=== PATIENT | female | born 1965 | race Caucasian/White ===

== ENCOUNTER 2017-10-27 14:55 | Inpatient (IN) | payer BC ==
[~2017-10-27 14:55] MED LIST: ISOVUE-370 76%-LOCM 1 ML ONE
[2017-10-27] MEDS ORDERED: Morphine 4 MG/ML VIAL ONE ×2 (19:20→21:30)
[2017-10-27] MEDS ORDERED: Ondansetron HCl/PF 4 MG/2 ML Vial ONE (19:20)
[2017-10-27 19:45] LABS: #Basophils 0.1 thou/uL (0.0-0.2); #Eosinphils 0.2 thou/uL (0.0-0.7); #Lymphocytes 2.6 thou/uL (1.20-3.40); #Neutrophils 11.7 thou/uL (1.40-6.50); %Basophils 0.5 % (0.0-1.0); %Eosinophils 1.2 % (0.0-10.0); %Lymphocytes 16.7 % (21.0-51.0); %Monocytes 6.6 % (0.0-10.0); Mean Platelet Volume 9.9 fL (7.4-10.4); Red Blood Cell (RBC) Count 5.05 mill/uL (4.20-5.40); White Blood Cell (WBC) Count 15.6 thou/uL (4.8-10.8)
[2017-10-27 20:05] LABS: Lactic Acid - Sepsis 1.5 mmol/L (0.5-2.2)
[2017-10-27 20:10] LABS: ALT (SGPT) 12 U/L (8-55); AST (SGOT) 15 U/L (5-34); Alkaline Phosphatase 138 U/L (40-150); Anion Gap 16 mmol/L (10-20); BUN (Urea Nitrogen) 9 mg/dL (9.8-20.1); Bilirubin, Total 1.8 mg/dL (0.2-1.2); Calc. Creatinine Clearance 0 mL/min (70-130); Calcium 9.7 mg/dL (7.8-10.44); Carbon Dioxide 23 mmol/L (22-29); Chloride 94 mmol/L (98-107); Estimated GFR-MDRD 70; Globulin 3.6 g/dL (2.4-3.5); Protein, Total 7.1 g/dL (6.0-8.3)
[2017-10-27 20:46] LABS: Bilirubin Negative (Negative); Blood, Urine Small (Negative); Glucose, Urine (Dipstick) >=1000 mg/dL (Negative); Ketone, Urine 15 mg/dL (Negative); Nitrite Negative (Negative); Protein, Urine (Dipstick) Negative (Neg-Trace)
[2017-10-27 21:00] LABS: Bacteria/HPF None Seen HPF (None Seen); RBC/HPF 0-3 HPF (0-3); Squamous Epithelial 0-3 HPF (0-3); WBC/HPF 0-3 HPF (0-3)
[2017-10-27 21:01] LABS: Hyaline Casts/LPF NONE SEEN LPF (0-3 Hyaline)
[2017-10-27] MEDS ORDERED: Clindamycin/D5W 900 mg/50 ml Premix Bag ONE (21:21)
[2017-10-27] MEDS ORDERED: Ondansetron HCl/PF 4 MG/2 ML Vial IVP PRN (21:59)
[2017-10-27] MEDS ORDERED: Morphine 4 MG/ML VIAL SLOW IVP PRN (22:10)
[2017-10-27] MEDS ORDERED: Insulin Regular 300 UNITS/3 ML VIAL ONE (22:37)
--- NOTE | 2017-10-27 23:14 | CT ---
CT OF THE ABDOMEN AND PELVIS WITH IV CONTRAST 10/27/17 PROVIDED CLINICAL HISTORY: Labial abscess. FINDINGS: The visualized lung bases appear clear. The spleen is enlarged, measuring about 15 cm in craniocaudal dimension x about 15 cm in transverse d imension. The solid abdominal organs demonstrate an otherwise unremarkable CT appearance. There is no bowel dilatation, inflammatory fat stranding, free fluid or free air apparent. Atherosclerotic vascu lar calcifications are noted involving the abdominal aorta. The osseous structures demonstrate no con cerning osteoblastic or osteolytic lesions. There is reticulation of the subcutaneous adipose layer involving the inferior aspects of the patient 's pannus, extending inferiorly to involve the region of the left labia. There is no definite evidenc e for a rim enhancing fluid collection to suggest a drainable abscess. There is a somewhat focal area of increased density within the subcutaneous adipose layer of the left gluteal region just to the le ft of midline at the level of the ischia, which may reflect a sebaceous cyst. Prominent by number, l ikely reactive, lymph nodes are seen within the left inguinal region. IMPRESSION: 1. No evidence for an acute intra-abdominal abnormality. 2. Cellulitis involving the patient's pannus and left labial region, without CT evidence for francie inable abscess. POS: [facility]
[2017-10-28] MEDS ORDERED: Dextrose 50% Abboject 50 ML SYRINGE SLOW IVP PRN (00:40)
[2017-10-28] MEDS ORDERED: Dextrose 5% in Water 1,000 ML IV PRN (00:40)
[2017-10-28] MEDS ORDERED: Insulin Detemir 100 UNITS/ML 20 UNITS in Pre-Filled Syringe 1 EACH SC SCH (00:45)
[2017-10-28] MEDS ORDERED: Amlodipine 10 MG TAB PO SCH (00:45)
[2017-10-28] MEDS ORDERED: Potassium Chloride 20 MEQ TAB PO SCH (00:45)
[2017-10-28] MEDS ORDERED: Sodium Chloride 0.9% 10 ML ONE (01:45)
--- NOTE | 2017-10-28 01:52 | HP ---
DATE OF SERVICE: 10/27/2017 TIME OF SERVICE: About 9:00 p.m. CHIEF COMPLAINT: Boils. HISTORY OF PRESENT ILLNESS: This is a 52-year-old nulliparous female who presented to the emergency department for left labial "boils and swelling" as well as fever of 102. She reports that since , she has had a boil on her left labia that has since increased in size and has become severely painful. The labia has started to drain brown to dark fluid that she reports "smells really bad." She has had some nausea today, but no significant vomiting , no changes in bowel habits, no problems with urination, or other concerns. She tried to get in with her PCP, but was unable to, so she went to the urgent care who sent her to the emergency room here. She reports that she gets these boils on her bottom relatively often, so she did not think anything of it when it first started. She feels that the pain and size of the infection has increased rapidly over the last couple of days. REVIEW OF SYSTEMS: Negative for head, eyes, ears, nose, throat, cardiovascular , respiratory, GI, , neuro, psych, musculoskeletal, skin, or constitutional symptoms other than mentioned above. PAST MEDICAL HISTORY: 1. Hypertension. 2. Morbid obesity. 3. Hyperlipidemia. 4. Type 2 diabetes on insulin. 5. Depression PAST SURGICAL HISTORY: LEEP procedure. MEDICATIONS: Reviewed. ALLERGIES: 1. PENICILLIN. 2. BACTRIM. SOCIAL HISTORY: Positive for tobacco use of approximately 1 pack every 3 days. She denies any alcohol or drug abuse. She is not currently in a relationship. FAMILY HISTORY: Significant for breast cancer and uterine cancer in her mother as well as heart disease in her father. Multiple family members with diabetes. PHYSICAL EXAMINATION: VITAL SIGNS: Temperature 100.5, blood pressure 159/90, pulse 111, respiratory rate 18, and O2 saturation 97% on room air. GENERAL: Awake, alert, in no acute distress. CHEST: Nonlabored breathing. ABDOMEN: Morbidly obese, soft, nontender. PELVIC: Multiple furuncles on her left buttock with significant erythema, induration, and swelling of her left labia from her perineum up to her mons and including her entire mons. There is an area of spontaneous drainage in the anterior portion of her labia and draining copious amounts of dark brown purulent fluid. Pelvic exam, otherwise deferred due to patient's discomfort. IMAGING: CT scan was performed of the abdomen and pelvis revealing significant cellulitis of the left labia and mons pubis, but no drainable abscess and no gas noted. There were prominent lymph nodes in her left groin, but otherwise no abnormalities noted. LABORATORY DATA: WBC 15.6, hemoglobin 16.1, hematocrit 47.0, platelets 296,000 , neutrophils 75%, no bands. Chemistry: Sodium 129, glucose 535. Lactic acid 1.5. ASSESSMENT AND PLAN: A 52-year-old nulligravid female with, 1. Labial purulent cellulitis: On imaging, there is no drainable abscess noted ; however, there is spontaneous drainage from the left labia. She will be admitted for IV antibiotics including vancomycin 15 mg/kg q.8 hours, Levaquin 750 mg IV daily, and Flagyl 500 mg IV q.8 hours. We will monitor her response closely and continue to assess for the need of incision and drainage. I will make her n.p.o. after midnight tonight for assessment in the morning. Repeat CBC will be performed in the morning. 2. Hyperglycemia: The internal medicine hospitalist team will be consulted and managed her significant hyperglycemia. I spoke with Dr. Regan regarding patient, who will be seeing her tonight. 3. Hypertension to be managed by internal medicine hospitalist team. 4. Deep venous thrombosis prophylaxis: Sequential compression devices while in bed and Lovenox 40 mg daily will be ordered. 5. Hyponatremia to be managed by internal medicine hospitalist team. 6. Morbid obesity 7. Depression: Will order home meds MTDD
[2017-10-28] MEDS: Sodium Chloride 0.9% 1,000 ML IV SCH ×3 (01:55→14:55)
[2017-10-28] MEDS: MORPHINE 10 MG/ML SYRINGE SLOW IVP PRN ×3 (02:02→22:29)
--- NOTE | 2017-10-28 04:01 | PDOC.PN ---
- Subjective Encounter Start Date: 10/28/17 Encounter Start Time: 02:00 Subjective: no pain now, feels better -: no sob, had dm from 5-6yrs on levemir bid -: oral meds intolerance for dm per patient - Objective MAR Reviewed: Yes Vital Signs & Weight: Vital Signs (12 hours) Temp Pulse Resp BP 10/28/17 01:39 98 169/80 H 10/27/17 23:55 99.7 F H 99 20 Weight Weight 9.101 oz Result Diagrams: 10/27/17 19:35 10/27/17 19:35 Additional Labs: Accuchecks 10/28/17 01:27 POC Glucose 365 H Phys Exam - Physical Examination HEENT: PERRLA, moist MMs Neck: no JVD, supple Respiratory: no wheezing, no rales Cardiovascular: RRR, no significant murmur Gastrointestinal: soft, non-tender, no distention, positive bowel sounds Musculoskeletal: no edema, pulses present Neurological: non-focal, moves all 4 limbs Psychiatric: A&O x 3 Dx/Plan (1) DM type 2 (diabetes mellitus, type 2) Status: Chronic Qualifiers: Diabetes mellitus complication status: without complication Diabetes mellitus intermediate insulin use: with termite technician use Qualified Code(s): E11.9 - Type 2 diabetes mellitus without complications; Z79.4 - senior living (current) use of insulin; Z79.4 - senior living (current) use of insulin; Z79.4 - extermination inspector ( current) use of insulin; Z79.4 - senior living (current) use of insulin (2) HTN (hypertension) Code(s): I10 - ESSENTIAL (PRIMARY) HYPERTENSION Status: Chronic Qualifiers: Hypertension type: essential hypertension Qualified Code(s): I10 - Essential (primary) hypertension (3) Obesity Code(s): E66.9 - OBESITY, UNSPECIFIED Status: Chronic (4) Labial abscess Code(s): N76.4 - ABSCESS OF VULVA Status: Acute Comment: s/p I&D in ER - Plan levemir 25u bid, add small dose glipizide -: on lopressor for mild htn -: levaq, flagyl and vanc for labial abscess -: await cultures, will f/u -: fingerstick is starting to trend down from 500 to 300's now * . Review of Systems - Medications/Allergies Allergies/Adverse Reactions: Allergies Allergy/AdvReac Type Severity Reaction Status Date / Time Penicillins Allergy Verified 10/27/17 22:19 sulfamethoxazole Allergy Verified 10/27/17 22:19 [From Bactrim] trimethoprim [From Bactrim] Allergy Verified 10/27/17 22:19 Medications: Current Medications Amlodipine Besylate (Norvasc) 10 mg PO DAILY [facility] Dextrose/Water (Dextrose 50%) 25 gm SLOW IVP PRN PRN PRN Reason: Hypoglycemia Enoxaparin Sodium (Lovenox) 40 mg SC 0900 [facility] Famotidine (Pepcid) 20 mg SLOW IVP Q12HR [facility] Glucagon (Glucagon) 1 mg IM PRN PRN PRN Reason: Hypoglycemia Sodium Chloride (Normal Saline 0.9%) 1,000 mls @ 125 mls/hr IV .Q8H [facility] Last Admin: 10/28/17 01:55 Dose: 1,000 mls Levofloxacin 750 mg/ Device 150 mls @ 100 mls/hr IVPB Q24HR [facility] Last Admin: 10/28/17 02:18 Dose: 150 mls Metronidazole 500 mg/ Device 100 mls @ 100 mls/hr IVPB Q8HR [facility] Vancomycin HCl 1.75 gm/ Sodium (Chloride) 500 mls @ 250 mls/hr IVPB 0400,1600 [facility] Dextrose/Water (D5w) 1,000 mls @ 0 mls/hr IV .Q0M PRN; As Directed PRN Reason: Hypoglycemia Insulin Detemir 15 units/ (Miscellaneous Medication) 0.15 mls @ 0 mls/hr SC BID [facility] Influenza Virus Vaccine (Fluzone Quad [id number] Syringe) 0.5 ml IM .ONCE ONE Stop: 10/29/17 09:01 Insulin Human Lispro (Humalog) 0 units SC .AGGRESSIVE SLIDING PRN PRN Reason: Aggressive Correctional Scale Insulin Human Lispro (Humalog) 0 units SC .BEDTIME SLIDING SC PRN PRN Reason: Bedtime Correctional Scale Miscellaneous Medication (Pharmacy To Dose) 0 each IVPB PRN PRN PRN Reason: VANC Pharmacy to Dose Morphine Sulfate (Morphine) 4 mg SLOW IVP Q4H PRN PRN Reason: Pain Last Admin: 10/28/17 02:02 Dose: 4 mg Potassium Chloride (K-Dur) 40 meq PO BID-WM [facility] Promethazine HCl (Phenergan) 25 mg IM/IV Q6H PRN PRN Reason: Nausea/Vomiting Sodium Chloride (Flush - Normal Saline) 10 ml IVF Q12HR [facility] Sodium Chloride (Flush - Normal Saline) 10 ml IVF PRN PRN PRN Reason: Saline Flush
[2017-10-28] MEDS: Vancomycin HCl 1.75 GM in Sodium Chloride 0.9% 500 ML IVPB SCH ×2 (04:12→16:23)
[2017-10-28] MEDS: Promethazine HCl 25 MG/ML VIAL IM/IV PRN (05:04)
[2017-10-28] MEDS: HumaLOG 300 UNITS/3 ML VIAL SC PRN ×3 (05:50→21:59)
[2017-10-28] MEDS: metroNIDAZOLE 500 MG in Premix Bag 1 BAG IVPB SCH ×4 (05:53→22:28)
[2017-10-28 06:11] LABS: Hemoglobin A1c 13.3 % (4.0-6.0)
[2017-10-28 06:21] LABS: Band 9 % (5-11); Hematocrit 40.7 % (36.0-47.0); Mean Platelet Volume 9.2 fL (7.4-10.4); Neutrophil 65 % (42-75); Red Blood Cell (RBC) Count 4.37 mill/uL (4.20-5.40); White Blood Cell (WBC) Count 12.7 thou/uL (4.8-10.8)
--- NOTE | 2017-10-28 08:18 | PDOC.EVN ---
Event Note - Event Note Event Note: Lobster Catcher coverage...start shift. case reviewed, labs seen with Dave Wagner. I will reorder CBC, CT scan and a repeat Lactate level today. Continue triples for now. Medicine following for med adjustments.
[2017-10-28 08:57] LABS: Lactic Acid - Sepsis 0.8 mmol/L (0.5-2.2)
[2017-10-28] MEDS ORDERED: Insulin Detemir 100 UNITS/ML 15 UNITS in Admixture Fee 1 EACH SC SCH (09:00)
[2017-10-28] MEDS: glipiZIDE 5 MG TAB PO SCH (09:37)
[2017-10-28] MEDS: Potassium Chloride 20 MEQ TAB PO SCH ×2 (09:37→16:22)
[2017-10-28] MEDS: Amlodipine 10 MG TAB PO SCH ×2 (09:37→18:54)
[2017-10-28] MEDS: Enoxaparin Sodium 40 MG/0.4 ML SYRINGE SC SCH (09:38)
[2017-10-28] MEDS: Famotidine/PF 20 mg/2ml Vial SLOW IVP SCH ×2 (09:38→21:55)
[2017-10-28] MEDS: Insulin Detemir 100 UNITS/ML 25 UNITS in Pre-Filled Syringe 1 EACH SC SCH ×2 (09:52→21:55)
--- NOTE | 2017-10-28 10:40 | PDOC.EVN ---
Event Note - Event Note Event Note: 10/28/17 @ 1030: HD 0 to 1 (patient admitted last PM): Patient being treated with triple antibiotics for suspected pubic cellulitis, HX DM with HA1c of 13. medicine is following her glucose levels and CHTN. Patient seen at bedside. S. Still with pubic area pain O. Lactate this am now 0.8 from 1.5 CBC pending for this PM, CT repeat pending this AM around 1100. Afebrile this AM, BPs 150s/90s Repeat CT pending...last pm CT reviewed- no abscess area seen Physical: NAD Large panus and discomfort to palpation of mons but decreased drainage No sores seen. Assessment: DM, CHTN, Obese with mons cellulitis Plan: 1. repeat CT 2. Lactate better 3. Continue Triple ABX 4. CBC this PM 5. If CT stable we will start ADA diet 6. medicine following DM control 7. Ultimately, we will continue medical care as CT has no current evidence of pus or necrotizing fascitis
[2017-10-28] MEDS ORDERED: Iopamidol 370 76% 100 ML VIAL ONE (11:58)
[2017-10-28 13:07] VITALS: BMI 42.7
--- NOTE | 2017-10-28 15:03 | CT ---
CT ABDOMEN AND PELVIS WITH CONTRAST: Multiple axial tomograms obtained through the abdomen and pelvis with IV enhancement. HISTORY: Diabetic pelvic cellulitis. COMPARISON: Comparison is made to a CT from last p.m. which showed inflammatory change involving the left labia a nd left perineum. FINDINGS: The lung bases remain clear. The spleen is mildly prominent as was noted last evening measuring up t o 15 cm. Liver, spleen, and pancreas otherwise unremarkable. The adrenals are mildly plump suggesting adrenal hyperplasia. The left adrenal gland has a nodular a ppearance in the axial plane measuring up to 1.6 cm. Kidneys and urinary bladder unremarkable. Bowel loops unremarkable. There is an umbilical hernia. This hernia sac and subcutaneous tissues measures 3.3 cm width. Images through the pelvis show an unremarkable-appearing uterus and adnexa. There continues to be subcutaneous haziness involving the left labia consistent with cellulitis. No fluid collection or abscess identified. IMPRESSION: 1. Inflammatory change involving the left labia without evidence of fluid collection or abscess. No change from CT of last p.m. 2. Other nonemergent findings including splenomegaly, umbilical hernia, and nodular left adrenal gla nd are all unchanged. POS: [facility]
--- NOTE | 2017-10-28 15:28 | PDOC.EVN ---
Event Note - Event Note Event Note: CT result from this AM..stable with no abscess or fluid collection. No deterioration noted. Continue plan of care.
[2017-10-28 17:19] LABS: #Eosinphils 0.2 thou/uL (0.0-0.7); #Monocytes 0.6 thou/uL (0.11-0.59); #Neutrophils 7.8 thou/uL (1.40-6.50); %Basophils 0.1 % (0.0-1.0); %Eosinophils 2.2 % (0.0-10.0); %Lymphocytes 19.1 % (21.0-51.0); %Monocytes 5.3 % (0.0-10.0); Hematocrit 41.4 % (36.0-47.0); Mean Platelet Volume 8.8 fL (7.4-10.4); Red Blood Cell (RBC) Count 4.45 mill/uL (4.20-5.40); White Blood Cell (WBC) Count 10.6 thou/uL (4.8-10.8)
[2017-10-28] MEDS ORDERED: cloNIDine 0.1 MG TAB PO PRN (18:41)
[2017-10-28] MEDS: Acetaminophen 500 MG TAB PO PRN (18:54)
--- NOTE | 2017-10-28 19:02 | PDOC.EVN ---
Event Note - Event Note Event Note: @1900: I was contacted at around 1800 when I was attending to another issue that the patient had systolic BP of 190. Also with TEMP elevation. I have seen the patient and reviewed course. WBC actually better now at 10.6. Medicine has ordered prn clonidine for BP elevations. We will continue triple antibiotic therapy. Culture of drainage still pending.
[2017-10-29] MEDS: Vancomycin HCl 1.75 GM in Sodium Chloride 0.9% 500 ML IVPB SCH ×2 (04:34→17:04)
[2017-10-29] MEDS: MORPHINE 10 MG/ML SYRINGE SLOW IVP PRN ×3 (04:35→22:16)
[2017-10-29] MEDS: Sodium Chloride 0.9% 1,000 ML IV SCH ×3 (04:41→16:47)
--- NOTE | 2017-10-29 06:43 | PDOC.EVN ---
Event Note - Event Note Event Note: Hospital Day 2 (Admitted 10/27 PM) S. No new complaints O. Tmax was 100.8 yesterday at 1999, now 99.3 last temp BPs: 160s/80s Culture results pending Antibiotics: triples in use Physical: NAD Abd soft, nt...obese Assessment: Resolving mons cellulitis on Levaquin, Flagyl, Vanc Plan: 1. await cultures 2. continue ABX 3. Medicine assisting with DM and CHTN (glucose improving)..initial HA1c was 13 4. follow temps
[2017-10-29] MEDS: metroNIDAZOLE 500 MG in Premix Bag 1 BAG IVPB SCH ×3 (07:12→22:05)
[2017-10-29] MEDS: glipiZIDE 5 MG TAB PO SCH (08:30)
[2017-10-29] MEDS: Amlodipine 10 MG TAB PO SCH (08:31)
[2017-10-29] MEDS: Potassium Chloride 20 MEQ TAB PO SCH ×2 (08:32→17:47)
[2017-10-29] MEDS: Famotidine/PF 20 mg/2ml Vial SLOW IVP SCH ×2 (08:32→21:12)
[2017-10-29] MEDS: HumaLOG 300 UNITS/3 ML VIAL SC PRN ×2 (08:33→12:43)
[2017-10-29] MEDS: Enoxaparin Sodium 40 MG/0.4 ML SYRINGE SC SCH (08:33)
[2017-10-29] MEDS: Ibuprofen 800 MG TAB PO PRN ×2 (08:33→21:12)
[2017-10-29] MEDS ORDERED: FLU VACC QS2017-18 36 mo. & older 0.5 ML SYRINGE IM ONE (09:00)
[2017-10-29] MEDS: Insulin Detemir 100 UNITS/ML 25 UNITS in Pre-Filled Syringe 1 EACH SC SCH ×2 (09:02→21:13)
[2017-10-29 13:06] LABS: #Eosinphils 0.3 thou/uL (0.0-0.7); #Monocytes 0.8 thou/uL (0.11-0.59); #Neutrophils 10.6 thou/uL (1.40-6.50); %Basophils 0.2 % (0.0-1.0); %Eosinophils 2.2 % (0.0-10.0); %Lymphocytes 20.4 % (21.0-51.0); %Monocytes 5.5 % (0.0-10.0); Hematocrit 45.9 % (36.0-47.0); Mean Platelet Volume 9.6 fL (7.4-10.4); Red Blood Cell (RBC) Count 4.86 mill/uL (4.20-5.40); White Blood Cell (WBC) Count 14.8 thou/uL (4.8-10.8)
--- NOTE | 2017-10-29 14:19 | PDOC.PN ---
- Subjective Encounter Start Date: 10/29/17 Encounter Start Time: 15:00 Subjective: Fever broke early this AM. Continued swelling and labial pain. - Objective MAR Reviewed: Yes Vital Signs & Weight: Vital Signs (12 hours) Temp Pulse Resp BP BP Pulse Ox 10/29/17 12:00 98.0 F 87 18 148/68 H 10/29/17 08:31 87 157/72 H 10/29/17 08:00 99.0 F 87 18 157/72 H 93 L 10/29/17 04:35 99.3 F 97 22 H 167/83 H Weight Admit Weight 249 lb 1.8 oz Weight 249 lb 1.8 oz I&O: 10/28/17 10/29/17 10/30/17 06:59 06:59 06:59 Intake Total 1050 Output Total 1050 450 Balance 0 -450 Result Diagrams: 10/29/17 11:59 10/27/17 19:35 Additional Labs: Accuchecks 10/29/17 10/29/17 10/28/17 11:18 06:10 21:54 POC Glucose 214 H 256 H 318 H 10/28/17 15:37 POC Glucose 195 H Phys Exam - Physical Examination Constitutional: NAD HEENT: moist MMs Respiratory: no wheezing, no rales, no rhonchi, clear to auscultation bilateral Cardiovascular: RRR, no significant murmur Gastrointestinal: soft, positive bowel sounds Neurological: non-focal, moves all 4 limbs Psychiatric: normal affect, A&O x 3 Dx/Plan (1) Labial abscess Code(s): N76.4 - ABSCESS OF VULVA Status: Acute Comment: Mons cellulitis, on abx, cultures pending (2) DM type 2 (diabetes mellitus, type 2) Status: Chronic Qualifiers: Diabetes mellitus complication status: without complication Diabetes mellitus medical terminologist insulin use: with medical terminologist use Qualified Code(s): E11.9 - Type 2 diabetes mellitus without complications; Z79.4 - care home (current) use of insulin; Z79.4 - care home (current) use of insulin; Z79.4 - care home ( current) use of insulin; Z79.4 - bed bug exterminator (current) use of insulin Comment: poorly controlled (3) HTN (hypertension) Code(s): I10 - ESSENTIAL (PRIMARY) HYPERTENSION Status: Chronic Qualifiers: Hypertension type: essential hypertension Qualified Code(s): I10 - Essential (primary) hypertension Comment: BP improved today, resuming home medications. (4) Obesity Code(s): E66.9 - OBESITY, UNSPECIFIED Status: Chronic - Plan cont current plan of care, continue antibiotics, out of bed/ambulate, DVT proph w/SCDs Anticipate improvement soon with more than 48 hours of IV abx. * . - Discharge Day Encounter end time: 15:30
[2017-10-29 15:30] LABS: Vancomycin, Trough 9.8 ug/mL
[2017-10-29] MEDS ORDERED: Vancomycin HCl 1.75 GM in Sodium Chloride 0.9% 500 ML IVPB SCH (16:00)
[2017-10-29] MEDS ORDERED: ALPRAZolam 0.25 MG TAB PO PRN (17:06)
[2017-10-29] MEDS: FLUoxetine HCl 20 MG CAP PO SCH (21:12)
[2017-10-29] MEDS: Metoprolol Tartrate 100 MG TAB PO SCH (21:13)
[2017-10-30] MEDS: Sodium Chloride 0.9% 1,000 ML IV SCH ×4 (02:03→22:03)
[2017-10-30] MEDS: Vancomycin HCl 1.75 GM in Sodium Chloride 0.9% 500 ML IVPB SCH ×3 (04:41→21:30)
[2017-10-30 06:24] LABS: #Basophils 0.1 thou/uL (0.0-0.2); #Eosinphils 0.4 thou/uL (0.0-0.7); #Lymphocytes 2.3 thou/uL (1.20-3.40); #Monocytes 0.7 thou/uL (0.11-0.59); #Neutrophils 6.3 thou/uL (1.40-6.50); %Basophils 0.6 % (0.0-1.0); %Eosinophils 3.8 % (0.0-10.0); %Lymphocytes 23.4 % (21.0-51.0); %Monocytes 7.2 % (0.0-10.0); Hematocrit 39.6 % (36.0-47.0); Mean Platelet Volume 9.1 fL (7.4-10.4); White Blood Cell (WBC) Count 9.7 thou/uL (4.8-10.8)
[2017-10-30 06:48] LABS: Anion Gap 10 mmol/L (10-20); BUN (Urea Nitrogen) 7 mg/dL (9.8-20.1); Calc. Creatinine Clearance 191 mL/min (70-130); Calcium 8.6 mg/dL (7.8-10.44); Carbon Dioxide 26 mmol/L (22-29); Chloride 106 mmol/L (98-107); Estimated GFR-MDRD Greater than 90
[2017-10-30] MEDS: metroNIDAZOLE 500 MG in Premix Bag 1 BAG IVPB SCH ×3 (08:00→21:36)
[2017-10-30] MEDS: glipiZIDE 5 MG TAB PO SCH ×2 (08:01→17:03)
[2017-10-30] MEDS: Potassium Chloride 20 MEQ TAB PO SCH ×2 (08:01→17:04)
[2017-10-30] MEDS: Metoprolol Tartrate 100 MG TAB PO SCH ×2 (08:07→21:35)
[2017-10-30] MEDS: Amlodipine 10 MG TAB PO SCH (08:08)
[2017-10-30] MEDS: FLUoxetine HCl 20 MG CAP PO SCH ×2 (08:12→21:46)
[2017-10-30] MEDS: Enoxaparin Sodium 40 MG/0.4 ML SYRINGE SC SCH (08:12)
[2017-10-30] MEDS: Famotidine/PF 20 mg/2ml Vial SLOW IVP SCH ×2 (08:33→21:34)
[2017-10-30] MEDS: Ibuprofen 800 MG TAB PO PRN ×2 (08:39→15:48)
[2017-10-30] MEDS: Insulin Detemir 100 UNITS/ML 25 UNITS in Pre-Filled Syringe 1 EACH SC SCH ×2 (09:26→21:31)
--- NOTE | 2017-10-30 10:13 | PRG ---
DATE OF SERVICE: 10/30/2017 CLERICAL WAREHOUSEMAN HOSPITALIST PROGRESS NOTE SUBJECTIVE: The patient is resting comfortably. She states her pain is similar to yesterday, but is not worsening. She is alert and oriented x3. OBJECTIVE: VITAL SIGNS: Temperature is 98.1, pulse 72, blood pressure 168/77, respirations 20, T-max in the pas t 24 hours is 99.9 at 1950 on 10/29/2017. Otherwise, the patient has remained afebrile and has had a declining curve of her temperature. GYNECOLOGIC EXAM: The patient remains with edema throughout the area of the mons pubis and the labia with erythema and induration involving the left half of the mons pubis extending down into the left labia. There are several areas that are draining fairly we believe with some purulent appearance. O n exam, there is no evidence of abscess. The cellulitis does not appear to extend beyond the level o f the left labia in the mons pubis. It does not extend up into the abdomen, inguinal region or the patient's pannus or onto the thigh or buttocks region. The rest of g ynecologic exam is deferred. LABORATORY DATA: The patient's white count has declined from 14.8 on the to 9.7 today, neutroph il count is down from 75% at max to 65% now. Hematocrit stable at 40%. Base met is unremarkable. B lood sugars are ranging down from 214 upon admission to 144 today. MICROBIOLOGY: The patient has got Group B strep from a labial swab and moderate yeast species growin g. ASSESSMENT: Complicated vulvar, mons pubis, cellulitis with poorly controlled diabetes mellitus and chronic hypertension. No evidence of vulvar abscess. PLAN: We will continue current antibiotics since the patient is allergic to PENICILLIN and BACTRIM. We will add p.o. Diflucan to the patient's treatment regimen secondary to the yeast on the swab spec imen and continue with Internal Medicine consultation for management of her hypertension and diabetes . We will initiate sitz bath t.i.d. Indication for surgical exploration would be worsening of the c ellulitis or lack of improvement over a longer period of time. Issues with slow resolution associate d with the diabetes, and the significant dependent edema associated with obesity were discussed with the patient and family members present.
[2017-10-30] MEDS: MORPHINE 10 MG/ML SYRINGE SLOW IVP PRN (10:14)
[2017-10-30] MEDS ORDERED: Fluconazole 100 MG TAB PO SCH (12:30)
[2017-10-30] MEDS: HumaLOG 300 UNITS/3 ML VIAL SC PRN (13:11)
--- NOTE | 2017-10-30 15:01 | PDOC.PN ---
- Subjective Encounter Start Date: 10/30/17 Encounter Start Time: 14:59 Patient seen at bedside. No overnight events, no new complaints. - Objective MAR Reviewed: Yes Vital Signs & Weight: Vital Signs (12 hours) Temp Pulse Resp BP BP 10/30/17 11:26 98.5 F 64 18 137/63 10/30/17 08:09 168/77 H 10/30/17 08:08 72 10/30/17 08:00 98.1 F 72 20 163/77 H 10/30/17 07:50 98.5 F 64 18 Weight Admit Weight 249 lb 1.8 oz Weight 249 lb 1.8 oz I&O: 10/29/17 10/30/17 10/31/17 06:59 06:59 06:59 Intake Total 1960 Output Total 450 Balance -450 1960 Result Diagrams: 10/30/17 05:43 10/30/17 05:43 Additional Labs: Accuchecks 10/30/17 10/30/17 10/29/17 11:10 07:16 21:11 POC Glucose 179 H 144 H 172 H 10/29/17 17:51 POC Glucose 134 H Phys Exam - Physical Examination Constitutional: NAD HEENT: moist MMs Neck: no JVD Respiratory: clear to auscultation bilateral Cardiovascular: RRR Gastrointestinal: soft Musculoskeletal: no edema Neurological: moves all 4 limbs Psychiatric: A&O x 3 Dx/Plan (1) Labial abscess Code(s): N76.4 - ABSCESS OF VULVA Status: Acute Comment: Mons cellulitis, on abx, cultures pending (2) DM type 2 (diabetes mellitus, type 2) Status: Chronic Qualifiers: Diabetes mellitus complication status: without complication Diabetes mellitus correction insulin use: with buttermaker helper use Qualified Code(s): E11.9 - Type 2 diabetes mellitus without complications; Z79.4 - rat exterminator (current) use of insulin; Z79.4 - rat exterminator (current) use of insulin; Z79.4 - [facility] ( current) use of insulin; Z79.4 - [facility] (current) use of insulin Comment: poorly controlled (3) HTN (hypertension) Code(s): I10 - ESSENTIAL (PRIMARY) HYPERTENSION Status: Chronic Qualifiers: Hypertension type: essential hypertension Qualified Code(s): I10 - Essential (primary) hypertension Comment: BP improved today, resuming home medications. - Plan cont current plan of care, continue antibiotics, out of bed/ambulate * Diflucan started per PORTFOLIO DIRECTOR. * Increase Lisinopril to BID * Change Glucotrol to BID * On discharge will likely need short acting insulin on a scale prior to meals and HS
[2017-10-30] MEDS: Morphine 5 mg/5 ml in 0.9% NaCl/PF SYRINGE SLOW IVP PRN ×2 (16:53→21:44)
[2017-10-30 20:16] LABS: Vancomycin, Trough 18.9 ug/mL
[2017-10-30] MEDS: Acetaminophen 500 MG TAB PO PRN (21:39)
[2017-10-31] MEDS: Morphine 5 mg/5 ml in 0.9% NaCl/PF SYRINGE SLOW IVP PRN ×3 (04:08→16:27)
[2017-10-31] MEDS: Ibuprofen 800 MG TAB PO PRN ×2 (04:08→16:27)
[2017-10-31] MEDS: Sodium Chloride 0.9% 1,000 ML IV SCH ×3 (06:15→20:53)
[2017-10-31] MEDS: metroNIDAZOLE 500 MG in Premix Bag 1 BAG IVPB SCH ×3 (06:15→20:52)
[2017-10-31] MEDS: Vancomycin HCl 1.75 GM in Sodium Chloride 0.9% 500 ML IVPB SCH ×3 (06:15→20:54)
[2017-10-31] MEDS: Metoprolol Tartrate 100 MG TAB PO SCH ×2 (08:15→20:56)
[2017-10-31] MEDS: Enoxaparin Sodium 40 MG/0.4 ML SYRINGE SC SCH (08:15)
[2017-10-31] MEDS: Fluconazole 100 MG TAB PO SCH (08:16)
[2017-10-31] MEDS: Potassium Chloride 20 MEQ TAB PO SCH ×2 (08:16→18:31)
[2017-10-31] MEDS: FLUoxetine HCl 20 MG CAP PO SCH ×2 (08:17→21:01)
[2017-10-31] MEDS: Famotidine/PF 20 mg/2ml Vial SLOW IVP SCH ×2 (08:17→20:52)
[2017-10-31] MEDS: Amlodipine 10 MG TAB PO SCH (08:17)
[2017-10-31] MEDS: Insulin Detemir 100 UNITS/ML 25 UNITS in Pre-Filled Syringe 1 EACH SC SCH ×2 (09:06→20:58)
[2017-10-31] MEDS: glipiZIDE 5 MG TAB PO SCH ×2 (09:08→18:32)
--- NOTE | 2017-10-31 10:18 | PRG ---
DATE OF SERVICE: 10/31/2017 HISTORY OF PRESENT ILLNESS: The patient is a 52-year-old female admitted for a labial abscess and ce llulitis now on day #4 of hospitalization and on Diflucan, levofloxacin, metronidazole and vancomycin for IV coverage. Internal Medicine has been managing her underlying medical problems, uncontrolled diabetes and elevated blood pressures. The patient reports today that she feels like the swelling ov erall has improved some since admission, but her pain has not. She reports it is very difficult to g et up and to sit and to walk, because of the pain that she experiences. She does admit that she has had these infections before in the past that her mother and grandmother have also had dealt these inf ections and she has used hot compresses in the past successfully. PHYSICAL EXAMINATION: VITAL SIGNS: Blood pressure at the time of evaluation, blood pressure is 139/65, temperature 98.3, p ulse is 65, respiratory rate of 19. GENERAL: She appears to be in no acute distress. ABDOMEN: Initial visit, the mons and the left labia is primarily at the location of infection. Ther e is no real significant erythema, although she does have some necrotic skin that is opened revealing of the underlying abscess and has purulent drainage. The area is exquisitely tender. We have irrig ated the now visible abscess with approximately 300 mL of normal saline, this abscess appears to be t racking along much of the left labia. We have packed it with quarter inch iodoform gauze. ASSESSMENT AND PLAN: The patient is a 52-year-old female with diabetes and hypertension managed by I nternal Medicine with a left labial abscess that has spontaneously ruptured and is draining. This ar ea was irrigated and had been packed with iodoform gauze in help to facilitate the healing process. The patient will remain under IV antibiotics while we continue to wait for final cultures and sensiti vities.
--- NOTE | 2017-10-31 17:00 | PDOC.PN ---
- Subjective Encounter Start Date: 10/31/17 Encounter Start Time: 16:58 Subjective: feels better.labial abscess packed and cleaned again today. -: walked in hallways - Objective MAR Reviewed: Yes Vital Signs & Weight: Vital Signs (12 hours) Temp Pulse Resp BP BP Pulse Ox 10/31/17 12:57 97.7 F 65 18 136/71 10/31/17 08:17 65 133/64 10/31/17 07:30 97.9 F 66 20 154/75 H 97 Weight Admit Weight 249 lb 1.8 oz Weight 249 lb 1.8 oz I&O: 10/30/17 10/31/17 11/01/17 06:59 06:59 06:59 Intake Total 1959 4707 Output Total 1000 Balance 1959 7817 Result Diagrams: 10/30/17 05:43 10/30/17 05:43 Additional Labs: Accuchecks 10/31/17 10/31/17 10/30/17 11:26 06:18 21:24 POC Glucose 137 H 118 H 181 H 10/30/17 16:48 POC Glucose 149 H Microbiology 10/27/17 21:39 Labia - Swab Bacterial Culture - Final 10/27/17 21:39 Labia - Swab Anaerobic Culture - Final Beta Strep not A,B,C,F or G Yeast species Phys Exam - Physical Examination Constitutional: NAD HEENT: PERRLA, moist MMs, sclera anicteric, oral pharynx no lesions Neck: no nodes, no JVD, supple, full ROM Respiratory: no wheezing, no rales, no rhonchi, clear to auscultation bilateral Cardiovascular: RRR, no significant murmur, no rub, gallop Gastrointestinal: soft, non-tender, no distention, positive bowel sounds Musculoskeletal: no edema, pulses present Neurological: non-focal, normal sensation, moves all 4 limbs Psychiatric: normal affect, A&O x 3 Skin: no rash Dx/Plan (1) Labial abscess Code(s): N76.4 - ABSCESS OF VULVA Status: Acute Comment: Mons cellulitis, on abx, cultures pending (2) DM type 2 (diabetes mellitus, type 2) Status: Chronic Qualifiers: Diabetes mellitus complication status: without complication Diabetes mellitus terminal manager insulin use: with custodial use Qualified Code(s): E11.9 - Type 2 diabetes mellitus without complications; Z79.4 - group home (current) use of insulin; Z79.4 - group home (current) use of insulin; Z79.4 - intermediate designer ( current) use of insulin; Z79.4 - intermediate designer (current) use of insulin Comment: poorly controlled (3) HTN (hypertension) Code(s): I10 - ESSENTIAL (PRIMARY) HYPERTENSION Status: Chronic Qualifiers: Hypertension type: essential hypertension Qualified Code(s): I10 - Essential (primary) hypertension Comment: BP improved today, resuming home medications. (4) Obesity Code(s): E66.9 - OBESITY, UNSPECIFIED Status: Chronic - Plan BP & Blood sugar under better control.Discussed w Pt in detail -: will provide scrpit for Op ISS. -: restart weelbutrin per Pt request. -: will follow. -: Abx per primary team * . Review of Systems - Review of Systems Constitutional: negative: fever, chills, sweats, weakness, malaise, other ENT: negative: Ear Pain, Ear Discharge, Nose Pain, Nose Discharge, Nose Congestion, Mouth Pain, Mouth Swelling, Throat Pain, Throat Swelling, Other Respiratory: negative: Cough, Dry, Shortness of Breath, Hemoptysis, SOB with Excertion, Pleuritic Pain, Sputum, Wheezing Cardiovascular: negative: chest pain, palpitations, orthopnea, paroxysmal nocturnal dyspnea, edema, light headedness, other Gastrointestinal: negative: Nausea, Vomiting, Abdominal Pain, Diarrhea, Constipation, Melena, Hematochezia, Other Genitourinary: negative: Dysuria, Frequency, Incontinence, Hematuria, Retention , Other Musculoskeletal: negative: Neck Pain, Shoulder Pain, Arm Pain, Back Pain, Hand Pain, Leg Pain, Foot Pain, Other Neurological: negative: Weakness, Numbness, Incoordination, Change in Speech, Confusion, Seizures, Other - Medications/Allergies Allergies/Adverse Reactions: Allergies Allergy/AdvReac Type Severity Reaction Status Date / Time Penicillins Allergy Verified 10/27/17 22:19 sulfamethoxazole Allergy Verified 10/27/17 22:19 [From Bactrim] trimethoprim [From Bactrim] Allergy Verified 10/27/17 22:19 Medications: Current Medications Acetaminophen (Tylenol) 1,000 mg PO Q6H PRN PRN Reason: PAIN/FEVER Last Admin: 10/30/17 21:39 Dose: 1,000 mg Alprazolam (Xanax) 0.5 mg PO BID PRN PRN Reason: Anxiety Last Admin: 10/29/17 17:47 Dose: 0.5 mg Amlodipine Besylate (Norvasc) 10 mg PO DAILY [facility] Last Admin: 10/31/17 08:17 Dose: 10 mg Bupropion HCl (Wellbutrin Sr) 300 mg PO BID [facility] Clonidine (Catapres) 0.1 mg PO Q4H PRN PRN Reason: SBP > 180, DBP > 100 Last Admin: 10/28/17 18:54 Dose: 0.1 mg Dextrose/Water (Dextrose 50%) 25 gm SLOW IVP PRN PRN PRN Reason: Hypoglycemia Enalapril Maleate (Vasotec) 5 mg PO BID [facility] Last Admin: 10/31/17 08:17 Dose: 5 mg Enoxaparin Sodium (Lovenox) 40 mg SC 0900 [facility] Last Admin: 10/31/17 08:15 Dose: 40 mg Famotidine (Pepcid) 20 mg SLOW IVP Q12HR [facility] Last Admin: 10/31/17 08:17 Dose: 20 mg Fluconazole (Diflucan) 100 mg PO DAILY [facility] Last Admin: 10/31/17 08:16 Dose: 100 mg Fluoxetine HCl (Prozac) 20 mg PO BID [facility] Last Admin: 10/31/17 08:17 Dose: 20 mg Glipizide (Glucotrol) 5 mg PO BID-AC [facility] Glucagon (Glucagon) 1 mg IM PRN PRN PRN Reason: Hypoglycemia Sodium Chloride (Normal Saline 0.9%) 1,000 mls @ 125 mls/hr IV .Q8H [facility] Last Admin: 10/31/17 13:10 Dose: 1,000 mls Levofloxacin 750 mg/ Device 150 mls @ 100 mls/hr IVPB Q24HR [facility] Last Admin: 10/31/17 02:44 Dose: 150 mls Metronidazole 500 mg/ Device 100 mls @ 100 mls/hr IVPB Q8HR [facility] Last Admin: 10/31/17 13:30 Dose: 100 mls Dextrose/Water (D5w) 1,000 mls @ 0 mls/hr IV .Q0M PRN; As Directed PRN Reason: Hypoglycemia Vancomycin HCl 1.75 gm/ Sodium (Chloride) 500 mls @ 250 mls/hr IVPB 0600,1400, 2200 [facility] Last Admin: 10/31/17 14:59 Dose: 500 mls Insulin Detemir 25 units/ (Miscellaneous Medication) 0.25 mls @ 0 mls/hr SC HS [facility] Insulin Detemir 25 units/ (Miscellaneous Medication) 0.25 mls @ 0 mls/hr SC QAM [facility] Ibuprofen (Motrin) 800 mg PO Q8H PRN PRN Reason: PAIN/FEVER Last Admin: 10/31/17 16:27 Dose: 800 mg Insulin Human Lispro (Humalog) 0 units SC .AGGRESSIVE SLIDING PRN PRN Reason: Aggressive Correctional Scale Last Admin: 10/30/17 13:11 Dose: 3 unit Insulin Human Lispro (Humalog) 0 units SC .BEDTIME SLIDING SC PRN PRN Reason: Bedtime Correctional Scale Last Admin: 10/28/17 21:59 Dose: 4 unit Metoprolol Tartrate (Lopressor) 150 mg PO BID [facility] Last Admin: 10/31/17 08:15 Dose: 150 mg Miscellaneous Medication (Pharmacy To Dose) 0 each IVPB PRN PRN PRN Reason: [facility] Pharmacy to Dose Morphine Sulfate/Sodium Chloride (Morphine 0.9% Nacl/Pf 5 Mg/5 M) 4 mg SLOW IVP Q4H PRN PRN Reason: Pain Last Admin: 10/31/17 16:27 Dose: 4 mg Potassium Chloride (K-Dur) 40 meq PO BID-[facility] Last Admin: 10/31/17 08:16 Dose: 40 meq Promethazine HCl (Phenergan) 25 mg IM/IV Q6H PRN PRN Reason: Nausea/Vomiting Last Admin: 10/28/17 05:04 Dose: 25 mg Sodium Chloride (Flush - Normal Saline) 10 ml IVF Q12HR [facility] Last Admin: 10/31/17 08:18 Dose: Not Given Sodium Chloride (Flush - Normal Saline) 10 ml IVF PRN PRN PRN Reason: Saline Flush Last Admin: 10/30/17 16:36 Dose: 10 ml
[2017-10-31] MEDS: Bupropion 150 MG SR TAB PO SCH (20:56)
[2017-10-31] MEDS ORDERED: Non-Formulary Item 1 EACH (Levemir Flexpen [Levemir Flexpen] 25 UNIT) SC SCH (21:00)
[2017-10-31] MEDS: Acetaminophen 500 MG TAB PO PRN (21:01)
[2017-11-01] MEDS: Promethazine HCl 25 MG/ML VIAL IM/IV PRN (04:02)
[2017-11-01] MEDS: Morphine 5 mg/5 ml in 0.9% NaCl/PF SYRINGE SLOW IVP PRN ×2 (04:55→13:19)
[2017-11-01] MEDS: Sodium Chloride 0.9% 1,000 ML IV SCH ×3 (04:58→20:45)
[2017-11-01] MEDS: metroNIDAZOLE 500 MG in Premix Bag 1 BAG IVPB SCH (05:01)
[2017-11-01] MEDS: Bupropion 150 MG SR TAB PO SCH ×2 (08:54→20:43)
[2017-11-01] MEDS: Famotidine/PF 20 mg/2ml Vial SLOW IVP SCH ×2 (08:54→20:40)
[2017-11-01] MEDS: Enoxaparin Sodium 40 MG/0.4 ML SYRINGE SC SCH (08:54)
[2017-11-01] MEDS: Metoprolol Tartrate 100 MG TAB PO SCH ×2 (08:55→20:41)
[2017-11-01] MEDS: Fluconazole 100 MG TAB PO SCH (08:55)
[2017-11-01] MEDS: Potassium Chloride 20 MEQ TAB PO SCH ×3 (08:56→17:26)
[2017-11-01] MEDS: Amlodipine 10 MG TAB PO SCH (08:57)
[2017-11-01] MEDS: glipiZIDE 5 MG TAB PO SCH ×2 (08:58→17:26)
[2017-11-01] MEDS: FLUoxetine HCl 20 MG CAP PO SCH ×2 (08:59→20:42)
[2017-11-01 09:24] LABS: Vancomycin, Random 13.9 ug/mL (See Comment)
[2017-11-01] MEDS ORDERED: Floranex Packet PO SCH (10:00)
[2017-11-01] MEDS ORDERED: Vancomycin HCl 1.75 GM in Sodium Chloride 0.9% 500 ML IVPB SCH (10:00)
[2017-11-01] MEDS: Insulin Detemir 100 UNITS/ML 25 UNITS in Pre-Filled Syringe 1 EACH SC SCH ×2 (10:14→20:44)
[2017-11-01] MEDS: Ibuprofen 800 MG TAB PO PRN ×2 (10:14→18:17)
[2017-11-01] MEDS ORDERED: Benzocaine/Menthol 20-0.5% 60 ML CAN TOP PRN (13:20)
[2017-11-01] MEDS ORDERED: Lidocaine 1% (PF) 30 ML VIAL FS SCH (13:45)
--- NOTE | 2017-11-01 15:08 | PDOC.PN ---
- Subjective Encounter Start Date: 11/01/17 Encounter Start Time: 15:07 Subjective: feels better.no fever/chills - Objective MAR Reviewed: Yes Vital Signs & Weight: Vital Signs (12 hours) Temp Pulse Resp BP BP Pulse Ox 11/01/17 11:00 98.7 F 56 L 20 136/65 11/01/17 08:57 63 176/78 H 11/01/17 08:40 98.9 F 63 16 176/78 H 93 L Weight Admit Weight 249 lb 1.8 oz Weight 249 lb 1.8 oz I&O: 10/31/17 11/01/17 11/02/17 06:59 06:59 06:59 Intake Total 4707 3100 Output Total 1000 1400 Balance 3707 1700 Result Diagrams: 10/30/17 05:43 10/30/17 05:43 Additional Labs: Accuchecks 11/01/17 11/01/17 11/01/17 12:32 06:37 03:54 POC Glucose 123 H 99 116 H 10/31/17 10/31/17 20:48 16:39 POC Glucose 109 106 Microbiology 10/27/17 21:39 Labia - Swab Bacterial Culture - Final 10/27/17 21:39 Labia - Swab Anaerobic Culture - Final Beta Strep not A,B,C,F or G Yeast species Phys Exam - Physical Examination Constitutional: NAD HEENT: PERRLA, moist MMs, sclera anicteric, oral pharynx no lesions Neck: no nodes, no JVD, supple, full ROM Respiratory: no wheezing, no rales, no rhonchi, clear to auscultation bilateral Cardiovascular: RRR, no significant murmur, no rub, gallop Gastrointestinal: soft, non-tender, no distention, positive bowel sounds Musculoskeletal: no edema, pulses present Neurological: non-focal, normal sensation, moves all 4 limbs Psychiatric: normal affect, A&O x 3 Dx/Plan (1) Labial abscess Code(s): N76.4 - ABSCESS OF VULVA Status: Acute Comment: Mons cellulitis, on abx, cultures pending (2) DM type 2 (diabetes mellitus, type 2) Status: Chronic Qualifiers: Diabetes mellitus complication status: without complication Diabetes mellitus fci insulin use: with rat exterminator use Qualified Code(s): E11.9 - Type 2 diabetes mellitus without complications; Z79.4 - detention (current) use of insulin; Z79.4 - detention (current) use of insulin; Z79.4 - detention ( current) use of insulin; Z79.4 - intermediate manager (current) use of insulin Comment: poorly controlled (3) HTN (hypertension) Code(s): I10 - ESSENTIAL (PRIMARY) HYPERTENSION Status: Chronic Qualifiers: Hypertension type: essential hypertension Qualified Code(s): I10 - Essential (primary) hypertension Comment: BP improved today, resuming home medications. (4) Obesity Code(s): E66.9 - OBESITY, UNSPECIFIED Status: Chronic - Plan DVT proph w/SCDs cont glucotrol,levemir. -: blood sugar and BP better controlled.pt counselled.scripts sent to pharmacy -: Dc when ok w Primary team * . Review of Systems - Review of Systems Constitutional: negative: fever, chills, sweats, weakness, malaise, other ENT: negative: Ear Pain, Ear Discharge, Nose Pain, Nose Discharge, Nose Congestion, Mouth Pain, Mouth Swelling, Throat Pain, Throat Swelling, Other Respiratory: negative: Cough, Dry, Shortness of Breath, Hemoptysis, SOB with Excertion, Pleuritic Pain, Sputum, Wheezing Cardiovascular: negative: chest pain, palpitations, orthopnea, paroxysmal nocturnal dyspnea, edema, light headedness, other Gastrointestinal: negative: Nausea, Vomiting, Abdominal Pain, Diarrhea, Constipation, Melena, Hematochezia, Other Genitourinary: negative: Dysuria, Frequency, Incontinence, Hematuria, Retention , Other Musculoskeletal: negative: Neck Pain, Shoulder Pain, Arm Pain, Back Pain, Hand Pain, Leg Pain, Foot Pain, Other Neurological: negative: Weakness, Numbness, Incoordination, Change in Speech, Confusion, Seizures, Other - Medications/Allergies Allergies/Adverse Reactions: Allergies Allergy/AdvReac Type Severity Reaction Status Date / Time Penicillins Allergy Verified 10/27/17 22:19 sulfamethoxazole Allergy Verified 10/27/17 22:19 [From Bactrim] trimethoprim [From Bactrim] Allergy Verified 10/27/17 22:19 Medications: Current Medications Acetaminophen (Tylenol) 1,000 mg PO Q6H PRN PRN Reason: PAIN/FEVER Last Admin: 10/31/17 21:01 Dose: 1,000 mg Acidophilus (Floranex) 1 gm PO DAILY [facility] Alprazolam (Xanax) 0.5 mg PO BID PRN PRN Reason: Anxiety Last Admin: 10/29/17 17:47 Dose: 0.5 mg Amlodipine Besylate (Norvasc) 10 mg PO DAILY [facility] Last Admin: 11/01/17 08:57 Dose: 10 mg Benzocaine/Menthol (Dermoplast) 2 ml TOP PRN PRN PRN Reason: Pain Bupropion HCl (Wellbutrin Sr) 300 mg PO BID [facility] Last Admin: 11/01/17 08:54 Dose: 150 mg Cephalexin (Keflex) 500 mg PO Q6HR [facility] Clonidine (Catapres) 0.1 mg PO Q4H PRN PRN Reason: SBP > 180, DBP > 100 Last Admin: 10/28/17 18:54 Dose: 0.1 mg Dextrose/Water (Dextrose 50%) 25 gm SLOW IVP PRN PRN PRN Reason: Hypoglycemia Enalapril Maleate (Vasotec) 5 mg PO BID [facility] Last Admin: 11/01/17 08:57 Dose: 5 mg Enoxaparin Sodium (Lovenox) 40 mg SC 0900 [facility] Last Admin: 11/01/17 08:54 Dose: 40 mg Famotidine (Pepcid) 20 mg SLOW IVP Q12HR [facility] Last Admin: 11/01/17 08:54 Dose: 20 mg Fluconazole (Diflucan) 100 mg PO DAILY [facility] Last Admin: 11/01/17 08:55 Dose: 100 mg Fluoxetine HCl (Prozac) 20 mg PO BID [facility] Last Admin: 11/01/17 08:59 Dose: 20 mg Glipizide (Glucotrol) 5 mg PO BID-AC [facility] Last Admin: 11/01/17 08:58 Dose: 5 mg Glucagon (Glucagon) 1 mg IM PRN PRN PRN Reason: Hypoglycemia Sodium Chloride (Normal Saline 0.9%) 1,000 mls @ 125 mls/hr IV .Q8H [facility] Last Admin: 11/01/17 04:58 Dose: 1,000 mls Dextrose/Water (D5w) 1,000 mls @ 0 mls/hr IV .Q0M PRN; As Directed PRN Reason: Hypoglycemia Insulin Detemir 25 units/ (Miscellaneous Medication) 0.25 mls @ 0 mls/hr SC HS [facility] Last Admin: 10/31/17 20:58 Dose: 0.25 mls Insulin Detemir 25 units/ (Miscellaneous Medication) 0.25 mls @ 0 mls/hr SC QAM [facility] Last Admin: 11/01/17 10:14 Dose: 0.25 mls Vancomycin HCl 1.75 gm/ Sodium (Chloride) 500 mls @ 250 mls/hr IVPB 1000,2200 [facility] Last Admin: 11/01/17 10:13 Dose: 500 mls Ibuprofen (Motrin) 800 mg PO Q8H PRN PRN Reason: PAIN/FEVER Last Admin: 11/01/17 10:14 Dose: 800 mg Insulin Human Lispro (Humalog) 0 units SC .AGGRESSIVE SLIDING PRN PRN Reason: Aggressive Correctional Scale Last Admin: 10/30/17 13:11 Dose: 3 unit Insulin Human Lispro (Humalog) 0 units SC .BEDTIME SLIDING SC PRN PRN Reason: Bedtime Correctional Scale Last Admin: 10/28/17 21:59 Dose: 4 unit Lidocaine HCl (Xylocaine 1% Pf) 30 ml FS ONE [facility] Stop: 11/01/17 23:59 Metoprolol Tartrate (Lopressor) 150 mg PO BID [facility] Last Admin: 11/01/17 08:55 Dose: 150 mg Miscellaneous Medication (Pharmacy To Dose) 0 each IVPB PRN PRN PRN Reason: [facility] Pharmacy to Dose Morphine Sulfate/Sodium Chloride (Morphine 0.9% Nacl/Pf 5 Mg/5 M) 4 mg SLOW IVP Q4H PRN PRN Reason: Pain Last Admin: 11/01/17 13:19 Dose: 4 mg Potassium Chloride (K-Dur) 40 meq PO BID-[facility] Last Admin: 11/01/17 09:02 Dose: Not Given Promethazine HCl (Phenergan) 25 mg IM/IV Q6H PRN PRN Reason: Nausea/Vomiting Last Admin: 11/01/17 04:02 Dose: 25 mg Sodium Chloride (Flush - Normal Saline) 10 ml IVF Q12HR [facility] Last Admin: 11/01/17 08:59 Dose: Not Given Sodium Chloride (Flush - Normal Saline) 10 ml IVF PRN PRN PRN Reason: Saline Flush Last Admin: 10/30/17 16:36 Dose: 10 ml
[2017-11-01] MEDS: Cephalexin 250 MG CAP PO SCH (17:26)
[2017-11-01] MEDS: HumaLOG 300 UNITS/3 ML VIAL SC PRN (17:26)
[2017-11-02] MEDS: Cephalexin 250 MG CAP PO SCH ×2 (00:03→05:58)
[2017-11-02] MEDS: Ibuprofen 800 MG TAB PO PRN (06:08)
[2017-11-02 08:10] VITALS: TEMP 98.1
[2017-11-02] MEDS: Sodium Chloride 0.9% 1,000 ML IV SCH (08:13)
[2017-11-02] MEDS: Potassium Chloride 20 MEQ TAB PO SCH (08:32)
[2017-11-02] MEDS: Fluconazole 100 MG TAB PO SCH (08:33)
[2017-11-02] MEDS: Bupropion 150 MG SR TAB PO SCH (08:34)
[2017-11-02] MEDS: Metoprolol Tartrate 100 MG TAB PO SCH (08:34)
[2017-11-02 08:35] VITALS: BP 150/68
[2017-11-02] MEDS: glipiZIDE 5 MG TAB PO SCH (08:38)
[2017-11-02] MEDS: Enoxaparin Sodium 40 MG/0.4 ML SYRINGE SC SCH (08:42)
[2017-11-02] MEDS: Amlodipine 10 MG TAB PO SCH (08:43)
[2017-11-02] MEDS: Famotidine/PF 20 mg/2ml Vial SLOW IVP SCH (08:43)
[2017-11-02] MEDS: FLUoxetine HCl 20 MG CAP PO SCH (08:46)
[2017-11-02] MEDS: Insulin Detemir 100 UNITS/ML 25 UNITS in Pre-Filled Syringe 1 EACH SC SCH (08:46)
[2017-11-02] MEDS ORDERED: Floranex Packet PO SCH (09:00)
[2017-11-02 09:48] LABS: Anion Gap 10 mmol/L (10-20); BUN (Urea Nitrogen) 7 mg/dL (9.8-20.1); Calc. Creatinine Clearance 177 mL/min (70-130); Carbon Dioxide 29 mmol/L (22-29); Chloride 104 mmol/L (98-107); Estimated GFR-MDRD Greater than 90
--- NOTE | 2017-11-02 12:51 | PDOC.PN ---
- Subjective Encounter Start Date: 11/02/17 Encounter Start Time: 12:50 Subjective: no new complaints.feels better.able to dress wound herself - Objective MAR Reviewed: Yes Vital Signs & Weight: Vital Signs (12 hours) Temp Pulse Resp BP BP 11/02/17 08:43 150/68 H 11/02/17 08:33 150/68 H 11/02/17 08:00 98.1 F 55 L 18 153/67 H 11/02/17 07:57 98.7 F 56 L 18 Weight Admit Weight 249 lb 1.8 oz Weight 249 lb 1.8 oz I&O: 11/01/17 11/02/17 11/03/17 06:59 06:59 06:59 Intake Total 3100 2650 Output Total 1400 1400 Balance 1700 1250 Result Diagrams: 10/30/17 05:43 11/02/17 09:29 Additional Labs: Accuchecks 11/02/17 11/01/17 11/01/17 05:52 20:39 17:15 POC Glucose 95 115 H 158 H Phys Exam - Physical Examination Constitutional: NAD HEENT: PERRLA, moist MMs, sclera anicteric, oral pharynx no lesions Neck: no nodes, no JVD, supple, full ROM Respiratory: no wheezing, no rales, no rhonchi, clear to auscultation bilateral Cardiovascular: RRR, no significant murmur, no rub, gallop Gastrointestinal: soft, non-tender, no distention, positive bowel sounds Musculoskeletal: no edema, pulses present Neurological: non-focal, normal sensation, moves all 4 limbs Dx/Plan (1) Labial abscess Code(s): N76.4 - ABSCESS OF VULVA Status: Acute Comment: Mons cellulitis, on abx, cultures pending (2) DM type 2 (diabetes mellitus, type 2) Status: Chronic Qualifiers: Diabetes mellitus complication status: without complication Diabetes mellitus penitentiary insulin use: with marine oil terminal superintendent use Qualified Code(s): E11.9 - Type 2 diabetes mellitus without complications; Z79.4 - retirement (current) use of insulin; Z79.4 - retirement (current) use of insulin; Z79.4 - retirement ( current) use of insulin; Z79.4 - retirement (current) use of insulin Comment: poorly controlled (3) HTN (hypertension) Code(s): I10 - ESSENTIAL (PRIMARY) HYPERTENSION Status: Chronic Qualifiers: Hypertension type: essential hypertension Qualified Code(s): I10 - Essential (primary) hypertension Comment: BP improved today, resuming home medications. (4) Obesity Code(s): E66.9 - OBESITY, UNSPECIFIED Status: Chronic - Plan all med script given for DC.pt educated & verbalized understanding -: will f/u w PCP. -: OK to DC from IM team * . Review of Systems - Review of Systems Constitutional: negative: fever, chills, sweats, weakness, malaise, other Respiratory: negative: Cough, Dry, Shortness of Breath, Hemoptysis, SOB with Excertion, Pleuritic Pain, Sputum, Wheezing Cardiovascular: negative: chest pain, palpitations, orthopnea, paroxysmal nocturnal dyspnea, edema, light headedness, other Gastrointestinal: negative: Nausea, Vomiting, Abdominal Pain, Diarrhea, Constipation, Melena, Hematochezia, Other Genitourinary: negative: Dysuria, Frequency, Incontinence, Hematuria, Retention , Other Musculoskeletal: negative: Neck Pain, Shoulder Pain, Arm Pain, Back Pain, Hand Pain, Leg Pain, Foot Pain, Other Neurological: negative: Weakness, Numbness, Incoordination, Change in Speech, Confusion, Seizures, Other - Medications/Allergies Allergies/Adverse Reactions: Allergies Allergy/AdvReac Type Severity Reaction Status Date / Time Penicillins Allergy Verified 10/27/17 22:19 sulfamethoxazole Allergy Verified 10/27/17 22:19 [From Bactrim] trimethoprim [From Bactrim] Allergy Verified 10/27/17 22:19
--- NOTE | 2017-11-02 15:55 | DIS ---
DATE OF ADMISSION: 10/27/2017 DATE OF DISCHARGE: 11/02/2017 ADMITTING DIAGNOSES: Labial abscess with cellulitis, hypertension, hyperlipidemia, type 2 diabetes, depression, and obesity. DISCHARGE DIAGNOSES: Labial abscess with cellulitis, hypertension, hyperlipidemia, type 2 diabetes, depression, and obesity. CONSULTATIONS: Internal Medicine. HOSPITAL COURSE: The patient is a 52-year-old female who presented to the emergency room with a left labial cellulitis in the setting of uncontrolled diabetes, hypertension, and obesity. The patient was admitted for IV antibiotics and within a couple days, the cellulitis abscessed and began draining. The area has been packed now for the last 2-3 days. Yesterday day #5 , the patient was changed over to oral antibiotics, Keflex 4 times a day, which is concurrent with culture reports. The patient now on day 6, is being discharged to home. Internal Medicine has been managing her other medical conditions and has had good control of her diabetes under current circumstances. The patient is being discharged with Keflex 500 mg to be taken 4 times a day for the next week and Diflucan 100 mg daily during the same period of time. In addition, the hospitalist team discharging her with appropriate medications for management of her diabetes and hypertension, which include glipizide 5 mg twice a day, levemir 25units bid, regular insulin for sliding scale and home antihypertensive medications. PT being discharged home. She has instructions to follow up with Dr Treva He in 1wk. Pt being discharged home. She is to seek medical attention if fever, increasing pain or swelling at site of draining abscess. Pt to wash out the abscess bid. NELLAD
== END 2017-11-02 11:50 | disposition home or self-care (01) | DRG 758 ==
LOC: ERS 14:55 → 3SW 23:50
PROVIDERS: ADMIT Obstetrics & Gynecology; ATTEND Obstetrics & Gynecology
DX: N76.4 Abscess of vulva (principal); Z68.41 Body mass index [BMI] 40.0-44.9, adult; E11.65 Type 2 diabetes mellitus with hyperglycemia; E87.1 Hypo-osmolality and hyponatremia; E66.01 Morbid (severe) obesity due to excess calories; B37.49 Other urogenital candidiasis; E78.5 Hyperlipidemia, unspecified; L02.32 Furuncle of buttock; F17.210 Nicotine dependence, cigarettes, uncomplicated; I10 Essential (primary) hypertension; Z79.4 Long term (current) use of insulin; F32.9 Major depressive disorder, single episode, unspecified; Z88.1 Allergy status to other antibiotic agents; Z88.0 Allergy status to penicillin; N76.2 Acute vulvitis; B95.1 Streptococcus, group B, as the cause of diseases classified elsewhere
CPT/HCPCS: 36415; 36416; 51701; 74177; 80048; 80053; 80202; 81003; 81015; 83036; 83605; 85007; 85025; 85027; 87070; 87077; 87205; 96361; 96365; 96372; 96375; 96376; 99406; A4216; J1650; J1815; J1956; J2001; J2270; J2405; J2550; J3370; J3490; J7050; S0028

== ENCOUNTER 2020-07-24 11:37 | Inpatient (IN) | payer BC, OTHER ==
[2020-07-24 12:49] LABS: #Basophils 0.1 thou/uL (0.0-0.2); #Eosinphils 0.2 thou/uL (0.0-0.7); #Lymphocytes 2.2 thou/uL (1.20-3.40); #Monocytes 0.7 thou/uL (0.11-0.59); #Neutrophils 10.3 thou/uL (1.40-6.50); %Basophils 0.4 % (0.0-1.0); %Eosinophils 1.5 % (0.0-10.0); %Lymphocytes 16.6 % (21.0-51.0); %Monocytes 5.5 % (0.0-10.0); %Neutrophils 76.1 % (42.0-75.0); Mean Corpuscular HGB CONC 33.1 g/dL (32.0-36.0); Mean Corpuscular Hemoglobin 30.9 pg (27.0-31.0); Mean Corpuscular Volume 93.3 fL (78.0-98.0); Platelet Count 383 thou/uL (130-400); RBC Distribution Width 12.2 % (11.5-14.5); Red Blood Cell (RBC) Count 4.85 mill/uL (4.20-5.40); White Blood Cell (WBC) Count 13.5 thou/uL (4.8-10.8)
[2020-07-24] MEDS ORDERED: Ondansetron PF 4 MG/2 ML Vial ONE (13:09)
[2020-07-24] MEDS ORDERED: Morphine 4 MG/ML VIAL ONE ×2 (13:09→14:19)
[2020-07-24 13:24] LABS: ALT (SGPT) 15 U/L (8-55); AST (SGOT) 20 U/L (5-34); Albumin 2.9 g/dL (3.5-5.0); Alkaline Phosphatase 105 U/L (40-110); Anion Gap 17 mmol/L (10-20); BUN (Urea Nitrogen) 9 mg/dL (9.8-20.1); Calc. Creatinine Clearance 0 mL/min (70-130); Calcium 8.6 mg/dL (7.8-10.44); Carbon Dioxide 23 mmol/L (22-29); Chloride 97 mmol/L (98-107); Estimated GFR-MDRD 77; Globulin 3.7 g/dL (2.4-3.5); Glucose 278 mg/dL (70-105); Potassium 3.3 mmol/L (3.5-5.1); Protein, Total 6.6 g/dL (6.0-8.3); Sodium 134 mmol/L (136-145)
--- NOTE | 2020-07-24 13:54 | CT ---
EXAM: CT Pelvis W Con PROVIDED CLINICAL HISTORY: Abscess left buttocks. COMPARISON: CT abdomen and pelvis on 10/28/2017. FINDINGS: There is soft tissue irregularity and defect seen involving the most medial aspect left gluteal regio n at the more posterior and inferior aspect of the gluteal cleft. There is subcutaneous emphysema seen in the soft tissues just lateral to the soft tissue defect with prominent inflammatory stranding and subcutaneous edema also present. No defined fluid collection is seen to suggest abscess in the soft tissues based on this exam. Premature changes involve large portion of the posterior inferior le ft gluteal region with inflammatory changes seen in a left perianal location. Urinary bladder has a normal CT appearance. The uterus is small in size. Vascular calcifications are seen in the visualized upper abdominal aorta and involving the iliac vidya amina. No free fluid, fluid collection, or lymphadenopathy is seen in the pelvis. Previously seen inflammatory changes involving the left labia are no longer visualized on this exam. No suspicious lytic or sclerotic osseous lesion is identified. IMPRESSION: Soft tissue defect and inflammatory changes involving the medial and inferior aspect left gluteal sof t tissues with minimal skin thickening. Mild skin thickening could be to cellulitis. There is subcutaneous emphysema extending from the soft tissue defect medially and superiorly, but there is no fluid collection seen to suggest an abscess.
[2020-07-24] MEDS ORDERED: Acetaminophen 325 MG TAB PO PRN ×2 (15:00→17:20)
[2020-07-24] MEDS ORDERED: Ondansetron ODT 4 MG TAB SL PRN (15:00)
[2020-07-24] MEDS ORDERED: Sodium Chloride 0.9% 1,000 ML IV SCH (15:00)
[2020-07-24] MEDS ORDERED: Ondansetron PF 4 MG/2 ML Vial IVP PRN ×2 (15:00→17:20)
[2020-07-24] MEDS ORDERED: Iopamidol-370 76% 500 ML 1 ML ONE (15:00)
[2020-07-24] MEDS ORDERED: Morphine 4 MG/ML VIAL SLOW IVP PRN (16:42)
[2020-07-24] MEDS ORDERED: Vancomycin 1 GM in Premix Bag 1 BAG IVPB SCH (17:00)
[2020-07-24 17:18] VITALS: BMI 50.3
[2020-07-24] MEDS ORDERED: hydrALAZINE 20 MG/ML VIAL SLOW IVP PRN (17:20)
[2020-07-24] MEDS ORDERED: Dextrose 50% Abboject 50 ML SYRINGE SLOW IVP PRN (17:20)
[2020-07-24] MEDS ORDERED: Ondansetron ODT 4 MG TAB PO PRN (17:20)
[2020-07-24] MEDS ORDERED: Dextrose 5% in Water 1,000 ML IV PRN (17:20)
[2020-07-24] MEDS: HYDROcodone/Acetaminophen 10/325 mg Tablet PO PRN (18:27)
--- NOTE | 2020-07-24 21:18 | HP ---
PRIMARY CARE PHYSICIAN: Treva He MD CHIEF COMPLAINT: "Abscess on my bottom." HISTORY OF PRESENT ILLNESS: Ms. Sheppard is a pleasant 54-year-old female, who has a history of hypertension as well as diabetes. She says she has a history of getting abscesses in the past and typically if she is about to have an abscess, her primary care physician will prescribe her cephalexin and she will start using warm compresses on the area. About two weeks ago, she started noticing an area on her buttocks that appeared to be a possible abscess. She started the antibiotics and the warm compresses as before, but at this time it got progressively worse. She says it got to the point where she could not lay on that side, she could not sleep, and she could barely go to the bathroom as a result. She denies having any fevers or chills, however, but she did get some nausea in the last few days. She was planning on seeing her primary care physician, but she could not quite make it due to the pain and went to the [facility], where they did an I and D and packed it and sent her out on antibiotics. She came back the following day on Thursday to do a wound check and by this time the cultures had returned and they changed the antibiotic to clindamycin and oral vancomycin. Her symptoms got basically worse. She went to see her primary care physician, who then sent her to the ER for evaluation. REVIEW OF SYSTEMS: All systems are reviewed and are negative, except that mentioned in the history of present illness. PAST MEDICAL HISTORY: Significant for diabetes, hypertension, hyperlipidemia, and obesity. PAST SURGICAL HISTORY: She has had a LEEP procedure. ALLERGIES: TO PENICILLIN, WHICH CAUSES A VERY LARGE WELT-LIKE LESION, AND BACTRIM, WHICH CAUSES THRUSH. SOCIAL HISTORY: She is . She works at the [employer]. She smokes about 8 to 9 cigarettes a day. Denies any alcohol use. FAMILY HISTORY: Significant for ovarian cancer in her mother. CURRENT MEDICATIONS: Include: 1. Clindamycin. 2. Oral vancomycin. 3. Levemir insulin 12 units twice a daily. 4. Humalog 15 units in the morning and 30 in the evening. 5. Metoprolol 100 mg b.i.d. 6. Alprazolam 0.5 mg p.o. b.i.d. PHYSICAL EXAMINATION: GENERAL: She is alert and oriented. She appears to be in no acute distress. She is morbidly obese. VITAL SIGNS: Blood pressure is 162/79, heart rate 80, respiratory rate of 16, and temperature is 98.6. HEENT: Pupils are equal, round, and reactive. Extraocular muscles are intact. Her sclerae are anicteric. Throat, no erythema, no exudates. NECK: No adenopathy. No bruits. LUNGS: Clear to auscultation with no wheezing, no rales, no rhonchi. CARDIOVASCULAR: She has a normal S1 and S2. There is no S3 or S4. No murmurs, clicks, or rubs. ABDOMEN: Obese. It is soft, nontender, and nondistended. Positive for bowel sounds. No rebound. No guarding. No organomegaly. EXTREMITIES: There is no clubbing or cyanosis. No edema. SKIN AND INTEGUMENT: On the buttocks, there is an area of induration on both the right and left buttocks and in the medial area on the right, there is an open draining area draining yellowish munoz-colored material, but there is no evidence of any tracking lesions nor any area that looked dusky and no streaking. LABORATORY RESULTS: The patient had a CT scan of the pelvis in which there was no evidence of any deep abscess or sinus tract. The white blood cell count was 13.5, hemoglobin 15, hematocrit is 45.2, and platelet count is 383. Sodium 134, potassium 3.3, chloride is 97, CO2 is 23, BUN of 9, creatinine 0.78, and glucose is 278. ASSESSMENT: 1. This is a pleasant 54-year-old female, who has a perirectal abscess. She has not done well with outpatient management and she does have risk factors, including diabetes and the morbid obesity, which may make her management more difficult. She will be placed in observation and started on IV vancomycin. We will get the results from the culture from the [facility] and base antibiotic therapy on these. We will also consult General Surgery to see whether or not she needs any further debridement. If so, then she likely will need to stay an additional day and at that time can be transitioned over into an inpatient status. 2. Diabetes mellitus. We will reconcile and restart her home medications as well as a sliding scale insulin. 3. Hypertension. We will need to reconcile and restart her home medications and will have p.r.n. medicines available. 4. She will be placed on deep venous thrombosis and gastrointestinal prophylaxis. Job ID: [id number] TEVIN
[2020-07-24] MEDS: Famotidine 20 MG TAB PO SCH (22:11)
[2020-07-25] MEDS: HYDROcodone/Acetaminophen 10/325 mg Tablet PO PRN ×3 (01:02→21:10)
[2020-07-25] MEDS: Vancomycin 1 GM in Premix Bag 1 BAG IVPB SCH ×2 (07:00→17:43)
[2020-07-25 07:48] LABS: Anion Gap 13 mmol/L (10-20); BUN (Urea Nitrogen) 8 mg/dL (9.8-20.1); Calc. Creatinine Clearance 174 mL/min (70-130); Calcium 8.4 mg/dL (7.8-10.44); Carbon Dioxide 28 mmol/L (22-29); Chloride 98 mmol/L (98-107); Estimated GFR-MDRD 80; Glucose 249 mg/dL (70-105); Sodium 136 mmol/L (136-145)
[2020-07-25 08:17] LABS: #Basophils 0.1 thou/uL (0.0-0.2); #Eosinphils 0.3 thou/uL (0.0-0.7); #Lymphocytes 3.2 thou/uL (1.20-3.40); #Monocytes 0.7 thou/uL (0.11-0.59); #Neutrophils 7.3 thou/uL (1.40-6.50); %Basophils 0.5 % (0.0-1.0); %Eosinophils 2.5 % (0.0-10.0); %Lymphocytes 27.6 % (21.0-51.0); %Monocytes 6.4 % (0.0-10.0); Hemoglobin 13.7 g/dL (12.0-16.0); Mean Corpuscular HGB CONC 32.5 g/dL (32.0-36.0); Mean Corpuscular Hemoglobin 30.5 pg (27.0-31.0); Mean Corpuscular Volume 93.8 fL (78.0-98.0); Mean Platelet Volume 8.5 fL (7.4-10.4); Platelet Count 362 thou/uL (130-400); RBC Distribution Width 12.2 % (11.5-14.5); Red Blood Cell (RBC) Count 4.48 mill/uL (4.20-5.40); White Blood Cell (WBC) Count 11.6 thou/uL (4.8-10.8)
[2020-07-25] MEDS: Enoxaparin Sodium 40 MG/0.4 ML SYRINGE SC SCH (09:00)
[2020-07-25] MEDS: HYDROcodone/Acetaminophen 5/325 mg Tablet PO PRN (09:00)
[2020-07-25] MEDS ORDERED: Heparin 1,000 UNITS/ML VIAL ONE (09:03)
[2020-07-25] MEDS: Famotidine 20 MG TAB PO SCH ×2 (09:10→20:23)
[2020-07-25] MEDS ORDERED: PROPOFOL 200 MG/20 ML VIAL ONE (10:25)
[2020-07-25] MEDS ORDERED: Succinylcholine Chloride 20 MG/ML 10 ml SYRINGE FS ONE (10:25)
[2020-07-25] MEDS ORDERED: Rocuronium Bromide 10 MG/ML (10ML VIAL) ONE (10:25)
[2020-07-25] MEDS ORDERED: Ondansetron PF 4 MG/2 ML Vial ONE (10:25)
[2020-07-25] MEDS ORDERED: Lidocaine 1% PF 5 ML VIAL ONE (10:25)
[2020-07-25] MEDS ORDERED: Glycopyrrolate 0.2 MG/ML 5 ML SYRINGE ONE (10:25)
--- NOTE | 2020-07-25 10:44 | PDOC.HOSPP ---
- Subjective Encounter Date: 07/25/20 Encounter Time: 10:42 Subjective: Ms. Sheppard was seen today in follow-up of perirectal abscess. She notes pain at the site. She also notes constipation. - Objective Vital Signs & Weight: Vital Signs (12 hours) Temp Pulse Resp BP Pulse Ox 07/25/20 07:20 98.2 F 82 16 156/82 H 96 07/25/20 00:12 98.2 F 79 18 144/66 H 95 Weight Weight 284 lb 0.3 oz I&O: 07/24/20 07/25/20 07/26/20 06:59 06:59 06:59 Intake Total 740 Balance 740 Result Diagrams: 07/25/20 04:37 07/25/20 03:30 Additional Labs: Accuchecks 07/25/20 07/24/20 07/24/20 04:22 19:39 17:32 POC Glucose 238 H 239 H 211 H Hospitalist ROS - Medication Medications: Active Medications Generic Name Dose Route Start Last Admin Trade Name Freq PRN Reason Stop Dose Admin Hydrocodone Bitart/Acetaminophen 1 tab 07/24/20 17:20 07/25/20 01:02 [place] 10/325 PO 1 tab Q4H PRN Administration Severe Pain (7-10) Famotidine 20 mg 07/24/20 21:00 07/24/20 22:11 Pepcid PO 20 mg BID ESME Administration Ondansetron HCl 4 mg 07/24/20 17:20 07/25/20 01:05 Zofran Odt PO 4 mg Q6H PRN Administration Nausea/Vomiting - Exam Eye: PERRL, anicteric sclera Heart: RRR, no murmur, no gallops, no rubs, normal peripheral pulses Respiratory: CTAB, no wheezes, no rales, no ronchi, normal chest expansion Gastrointestinal: soft, non-tender, non-distended, normal bowel sounds Extremities: 1+ LE edema Hosp A/P (1) Morbid obesity with BMI of 50.0-59.9, adult Code(s): E66.01 - MORBID (SEVERE) OBESITY DUE TO EXCESS CALORIES; Z68.43 - BODY MASS INDEX (BMI) 50.0-59.9, ADULT Status: Chronic (2) DM type 2 (diabetes mellitus, type 2) Status: Chronic Qualifiers: Diabetes mellitus detention insulin use: with electric repair supervisor use Diabetes mellitus complication status: without complication Qualified Code(s): E11.9 - Type 2 diabetes mellitus without complications; Z79.4 - grade recorder (current) use of insulin; Z79.4 - grade recorder (current) use of insulin; Z79.4 - halfway (current) use of insulin; Z79.4 - halfway (current) use of insulin (3) HTN (hypertension) Code(s): I10 - ESSENTIAL (PRIMARY) HYPERTENSION Status: Chronic Qualifiers: Hypertension type: essential hypertension Qualified Code(s): I10 - Essential (primary) hypertension (4) Perirectal abscess Code(s): K61.1 - RECTAL ABSCESS Status: Acute - Plan * Elizabeth-rectal Abscess- suspect MRSA- will continue IV Vancomycin * Will request the culture results from the [facility] * I spoke with Dr. Mars , and he plans further debridement of the area * DM- will give a low dose of Long acting insulin * HTN- continue her beta-annia , Metoprolol and re-start the others post op
[2020-07-25] MEDS ORDERED: Potassium Chloride 40 MEQ in Sodium Chloride 0.9% 250 ML 250 ML IVPB SCH (10:45)
[2020-07-25] MEDS ORDERED: Insulin Glargine 4 UNITS in Pre-Filled Syringe 1 EACH SC SCH (12:00)
[2020-07-25 12:36] LABS: SARS-CoV-2 MS2 Positive; SARS-CoV-2 N Gene Negative; SARS-CoV-2 S Gene Negative; SARS-CoV-2 by NAA Not Detected (NotDetected); SARS-CoV-2 orf1ab Negative
[2020-07-25] MEDS ORDERED: Fentanyl 100 MCG/2 ML VIAL ONE ×3 (12:57→15:29)
[2020-07-25] MEDS ORDERED: Lidocaine 1% w/Epinephrine 1:100K 20 ML VIAL ONE (13:08)
[2020-07-25] MEDS ORDERED: Bupivacaine 0.25% HCL 30 ML VIAL ONE (13:08)
[2020-07-25] MEDS ORDERED: Insulin Regular 300 UNITS/3 ML VIAL ONE (13:26)
[2020-07-25] MEDS ORDERED: Potassium Chloride 20 MEQ TAB PO SCH (13:30)
[2020-07-25] MEDS ORDERED: Levofloxacin 500 mg/D5W 100 ml Premix Bag ONE (13:49)
[2020-07-25] MEDS ORDERED: Clindamycin/D5W 900 mg/50 ml Premix Bag ONE (13:49)
[2020-07-25] MEDS ORDERED: SUGAMMADEX SODIUM 200 MG/2 ML VIAL ONE (14:51)
[2020-07-25] MEDS ORDERED: Non-Formulary Medication 1 EACH PO PRN (15:42)
[2020-07-25] MEDS ORDERED: Promethazine HCl 25 MG/ML VIAL IM/IV PRN (15:45)
[2020-07-25] MEDS ORDERED: Ondansetron HCl/PF 4 MG/2 ML Vial IVP PRN (15:45)
--- NOTE | 2020-07-25 16:32 | OP ---
DATE OF PROCEDURE: 07/25/2020 PREOPERATIVE DIAGNOSIS: Recurrent left gluteal/perianal abscesses. POSTOPERATIVE DIAGNOSIS: Recurrent left gluteal/perianal abscesses. PROCEDURE PERFORMED: Incision and drainage and excisional debridement of recurrent left gluteal/perianal abscesses. ANESTHESIA: General endotracheal. ESTIMATED BLOOD LOSS: 20 mL. FLUIDS GIVEN: 700 mL crystalloids. COUNTS: Sponge and instrument counts were verified as correct x2. COMPLICATIONS: None apparent at the time of operation. INDICATIONS FOR OPERATION: This is a 54-year-old morbidly obese woman with history of type 2 diabetes mellitus and recurrent gluteal abscesses. The patient presented at this time with recurrent left gluteal abscesses, which has failed to resolve over the last 2 weeks. This was associated with worsening pain. Clinical and radiographic examination were consistent with left gluteal abscess for which the patient was brought to the operating room for incision and drainage. Findings are consistent with necrotizing soft tissue, left gluteal wound consistent with perianal/cryptic abscesses. DESCRIPTION OF PROCEDURE: Informed consent was obtained from the patient who was brought to the operating room and placed in supine position. Following general anesthesia, the patient was placed in a prone position, suzanne-knife. The entire left and right gluteal folds were widely sterilely prepped and draped in usual fashion. There are two openings measuring 5 mm in diameter, approximately 2 cm apart. This was draining of purulent fluid. Decision was made therefore to proceed with excisional debridement. The island of skin between these two openings was excised using the scalpel. Incision was carried down through the depth of the abscess. Bleeding points controlled with cautery. This island of skin was passed off the operative field for formal transmission to Pathology. Purulent subcutaneous tissues were extracted and sent off to microbiology. The remainder of the abscess cavities were individually attended to, although there were two openings to the skin, there were indeed three perianal abscesses at 6 o'clock, 7 o'clock, and 9 o'clock. The most superior abscess cavity tunnels to approximately 5 cm superolateral, the middle tunnels to approximately 10 cm and the most inferior abscess pocket tunnels to 6 cm in depth. Deep necrotic tissues were sharply debrided using Metzenbaum scissors and cautery. The abscess cavities were then individually irrigated clear with saline. These were then individually packed with saline saturated gauze strips. ABD pad and mesh pants were then applied. The patient tolerated the procedure without any apparent complication and was returned to recovery room in satisfactory condition. Job ID: [id number]
[2020-07-25] MEDS: Metoprolol Tartrate 100 MG TAB PO SCH (20:24)
[2020-07-25] MEDS ORDERED: Metoprolol Tartrate 100 MG TAB PO SCH (21:00)
[2020-07-25] MEDS: HumaLOG 300 UNITS/3 ML VIAL SC PRN (21:10)
[2020-07-26] MEDS: HYDROcodone/Acetaminophen 10/325 mg Tablet PO PRN ×4 (03:28→18:18)
[2020-07-26 05:33] LABS: Vancomycin, Trough 9.3 ug/mL
[2020-07-26] MEDS: HumaLOG 300 UNITS/3 ML VIAL SC PRN ×3 (05:33→18:05)
[2020-07-26] MEDS: Vancomycin 1.5 GRAM/300 ML BAG 1.5 GM in Premix Bag 1 BAG IVPB SCH ×2 (06:43→18:03)
[2020-07-26] MEDS: Metoprolol Tartrate 100 MG TAB PO SCH ×2 (08:38→20:35)
[2020-07-26] MEDS: Enoxaparin Sodium 40 MG/0.4 ML SYRINGE SC SCH (08:38)
[2020-07-26] MEDS: Famotidine 20 MG TAB PO SCH ×2 (08:38→20:35)
[2020-07-26] MEDS ORDERED: Insulin Glargine 4 UNITS in Pre-Filled Syringe 1 EACH SC SCH ×2 (09:00→10:00)
--- NOTE | 2020-07-26 09:57 | PDOC.HOSPP ---
- Subjective Encounter Date: 07/26/20 Encounter Time: 08:20 Subjective: Seen for follow-up for perirectal abscess. Reports pain at the abscess site. Denies chest pain or shortness of breath. Constipated. - Objective Vital Signs & Weight: Vital Signs (12 hours) Temp Pulse Resp BP BP Pulse Ox 07/26/20 07:31 98.3 F 74 16 144/65 H 95 07/26/20 04:49 98.6 F 60 18 124/74 95 07/25/20 23:57 98.6 F 69 18 122/76 95 Weight Admit Weight 284 lb 0.32 oz Weight 284 lb 0.3 oz I&O: 07/25/20 07/26/20 07/27/20 06:59 06:59 06:59 Intake Total 740 Balance 740 Result Diagrams: 07/25/20 04:37 07/25/20 03:30 Additional Labs: Accuchecks 07/26/20 07/25/20 07/25/20 05:02 20:49 13:54 POC Glucose 199 H 359 H 227 H 07/25/20 07/25/20 13:38 11:03 POC Glucose 264 H 283 H I reviewed patient's labs and MAR Hospitalist ROS - Review of Systems Cardiovascular: denies: chest pain, palpitations, orthopnea, paroxysmal noc. dyspnea, edema, light headedness Gastrointestinal: denies: nausea, vomiting, abdominal pain, diarrhea, constipation, melena, hematochezia - Medication Medications: Active Medications Generic Name Dose Route Start Last Admin Trade Name Freq PRN Reason Stop Dose Admin Hydrocodone Bitart/Acetaminophen 1 tab 07/24/20 17:20 07/26/20 08:39 [place] 10/325 PO 1 tab Q4H PRN Administration Severe Pain (7-10) Hydrocodone Bitart/Acetaminophen 1 tab 07/24/20 17:20 07/25/20 09:00 [place] 5/325 PO 1 tab Q4H PRN Administration Moderate Pain (4-6) Enoxaparin Sodium 40 mg 07/25/20 09:00 07/26/20 08:38 Lovenox SC 40 mg 0900 ESME Administration Famotidine 20 mg 07/24/20 21:00 07/26/20 08:38 Pepcid PO 20 mg BID ESME Administration Insulin Glargine 4 units/ 0.04 mls @ 0 mls/hr 07/26/20 09:00 07/26/20 08:38 Miscellaneous Medication SC 0.04 mls QAM ESME Administration Vancomycin HCl 1.5 gm/ Device 300 mls @ 200 mls/hr 07/26/20 06:00 07/26/20 06:43 IVPB 300 mls 0600,1800 ESME Administration Insulin Human Lispro 0 units 07/25/20 19:00 07/26/20 05:33 Humalog 300 Units/3 Ml Vial SC 2 unit .MODERATE SLIDING SC PRN Administration MODERATE SLIDING SCALE Protocol Insulin Human Lispro 0 units 07/25/20 19:00 07/25/20 21:10 Humalog 300 Units/3 Ml Vial SC 5 unit .BEDTIME SLIDING SC PRN Administration BEDTIME SLIDING SCALE Protocol Metoprolol Tartrate 100 mg 07/25/20 21:00 07/26/20 08:38 Metoprolol Tartrate 100 Mg Tab PO 100 mg BID ESME Administration Ondansetron HCl 4 mg 07/24/20 17:20 07/25/20 01:05 Zofran Odt PO 4 mg Q6H PRN Administration Nausea/Vomiting Sodium Chloride 10 ml 07/25/20 21:00 07/26/20 08:39 Flush - Normal Saline 10 Ml Syringe IVF 10 ml Q12HR ESME Administration - Exam General - other findings: Morbid obesity Eye: anicteric sclera ENT: moist mucosa Neck: supple Heart: RRR Respiratory: CTAB Gastrointestinal: soft, non-tender Extremities: no cyanosis Skin: no rashes Psychiatric: normal affect, normal behavior Hosp A/P - Plan (1) Perirectal abscess Code(s): K61.1 - RECTAL ABSCESS Status: Acute (2) Morbid obesity with BMI of 50.0-59.9, adult Code(s): E66.01 - MORBID (SEVERE) OBESITY DUE TO EXCESS CALORIES; Z68.43 - BODY MASS INDEX (BMI) 50.0-59.9, ADULT Status: Chronic (3) DM type 2 (diabetes mellitus, type 2) Status: Chronic Qualifiers: Diabetes mellitus halfway insulin use: with long term care social worker use Diabetes mellitus complication status: without complication Qualified Code(s): E11.9 - Type 2 diabetes mellitus without complications; Z79.4 - custodial (current) use of insulin; Z79.4 - manager long term care (current) use of insulin; Z79.4 - manager long term care (current) use of insulin; Z79.4 - manager long term care (current) use of insulin (4) HTN (hypertension) Code(s): I10 - ESSENTIAL (PRIMARY) HYPERTENSION Status: Chronic Qualifiers: Hypertension type: essential hypertension Qualified Code(s): I10 - Essential (primary) hypertension - Plan * Elizabeth-rectal Abscess-status post debridement, preliminary buttock culture report indicates gram-negative melvin. Add cefepime and await culture results. Continue IV vancomycin, await culture results from [facility]. * DM-blood sugar still high, increase Lantus to 8 units daily and administer one-time dose of 4 units today. * HTN-reasonably controlled.
[2020-07-26] MEDS ORDERED: Senokot S 8.6-50 MG TAB PO SCH (10:00)
[2020-07-26] MEDS: Morphine 2 MG/ML VIAL SLOW IVP PRN (10:09)
[2020-07-26] MEDS ORDERED: Lidocaine 4% Topical Sol 50 ML BOT TOP SCH (10:45)
[2020-07-26] MEDS: Senokot S 8.6-50 MG TAB PO SCH (20:35)
[2020-07-27] MEDS: HYDROcodone/Acetaminophen 10/325 mg Tablet PO PRN ×5 (01:18→20:46)
[2020-07-27] MEDS: Vancomycin 1.5 GRAM/300 ML BAG 1.5 GM in Premix Bag 1 BAG IVPB SCH ×2 (04:42→16:56)
[2020-07-27] MEDS: HumaLOG 300 UNITS/3 ML VIAL SC PRN ×3 (04:42→16:57)
[2020-07-27 08:14] LABS: #Basophils 0.1 thou/uL (0.0-0.2); #Eosinphils 0.3 thou/uL (0.0-0.7); #Monocytes 0.8 thou/uL (0.11-0.59); #Neutrophils 10.2 thou/uL (1.40-6.50); %Basophils 0.5 % (0.0-1.0); %Lymphocytes 20.7 % (21.0-51.0); %Monocytes 5.7 % (0.0-10.0); %Neutrophils 71.1 % (42.0-75.0); Mean Corpuscular Hemoglobin 29.7 pg (27.0-31.0); Mean Platelet Volume 8.2 fL (7.4-10.4); Platelet Count 367 thou/uL (130-400); RBC Distribution Width 12.3 % (11.5-14.5); Red Blood Cell (RBC) Count 4.71 mill/uL (4.20-5.40); White Blood Cell (WBC) Count 14.4 thou/uL (4.8-10.8)
[2020-07-27 08:34] LABS: Anion Gap 13 mmol/L (10-20); BUN (Urea Nitrogen) 10 mg/dL (9.8-20.1); Calc. Creatinine Clearance 181 mL/min (70-130); Calcium 8.2 mg/dL (7.8-10.44); Carbon Dioxide 28 mmol/L (22-29); Chloride 97 mmol/L (98-107); Estimated GFR-MDRD 83; Glucose 188 mg/dL (70-105); Sodium 135 mmol/L (136-145)
[2020-07-27] MEDS ORDERED: Insulin Glargine 8 UNITS in Pre-Filled Syringe 1 EACH SC SCH (09:00)
[2020-07-27] MEDS: Famotidine 20 MG TAB PO SCH ×2 (09:08→20:46)
[2020-07-27] MEDS: Enoxaparin Sodium 40 MG/0.4 ML SYRINGE SC SCH (09:08)
[2020-07-27] MEDS: Insulin Glargine 10 UNITS in Pre-Filled Syringe 1 EACH SC SCH (09:08)
[2020-07-27] MEDS: Metoprolol Tartrate 100 MG TAB PO SCH ×2 (09:09→20:46)
[2020-07-27] MEDS: Senokot S 8.6-50 MG TAB PO SCH ×2 (09:09→20:46)
[2020-07-27] MEDS: Morphine 2 MG/ML VIAL SLOW IVP PRN (10:30)
--- NOTE | 2020-07-27 12:51 | PDOC.HOSPP ---
- Subjective Encounter Date: 07/27/20 Encounter Time: 08:40 Subjective: Patient seen for follow-up regarding perirectal abscess. Sleepy but arousable. Reports pain is better. - Objective Vital Signs & Weight: Vital Signs (12 hours) Temp Pulse Resp BP Pulse Ox 07/27/20 08:59 98.4 F 71 20 163/71 H 94 L 07/27/20 08:00 96 07/27/20 04:00 98.4 F 70 18 144/88 H 94 L Weight Admit Weight 284 lb 0.32 oz Weight 284 lb 0.3 oz I&O: 07/26/20 07/27/20 07/28/20 06:59 06:59 06:59 Intake Total 1440 Balance 1440 Result Diagrams: 07/27/20 08:02 07/27/20 08:02 Additional Labs: Accuchecks 07/27/20 07/27/20 07/26/20 11:53 04:30 16:02 POC Glucose 240 H 232 H 239 H 07/25/20 17:08 POC Glucose 218 H I reviewed patient's labs and MAR Hospitalist ROS - Review of Systems Gastrointestinal: denies: nausea, vomiting, abdominal pain, diarrhea, constipation, melena, hematochezia Genitourinary: denies: dysuria, frequency, incontinence, hematuria, retention - Medication Medications: Active Medications Generic Name Dose Route Start Last Admin Trade Name Freq PRN Reason Stop Dose Admin Hydrocodone Bitart/Acetaminophen 1 tab 07/24/20 17:20 07/27/20 04:41 [place] 10/325 PO 1 tab Q4H PRN Administration Severe Pain (7-10) Hydrocodone Bitart/Acetaminophen 1 tab 07/24/20 17:20 07/25/20 09:00 [place] 5/325 PO 1 tab Q4H PRN Administration Moderate Pain (4-6) Enoxaparin Sodium 40 mg 07/25/20 09:00 07/27/20 09:08 Lovenox SC 40 mg 0900 ESME Administration Famotidine 20 mg 07/24/20 21:00 07/27/20 09:08 Pepcid PO 20 mg BID ESME Administration Vancomycin HCl 1.5 gm/ Device 300 mls @ 200 mls/hr 07/26/20 06:00 07/27/20 04:42 IVPB 300 mls 0600,1800 ESME Administration Insulin Glargine 10 units/ 0.1 mls @ 0 mls/hr 07/27/20 09:00 07/27/20 09:08 Miscellaneous Medication SC 0.1 mls QAM ESME Administration Insulin Human Lispro 0 units 07/25/20 19:00 07/27/20 04:42 Humalog 300 Units/3 Ml Vial SC 2 unit .MODERATE SLIDING SC PRN Administration MODERATE SLIDING SCALE Protocol Insulin Human Lispro 0 units 07/25/20 19:00 07/25/20 21:10 Humalog 300 Units/3 Ml Vial SC 5 unit .BEDTIME SLIDING SC PRN Administration BEDTIME SLIDING SCALE Protocol Metoprolol Tartrate 100 mg 07/25/20 21:00 07/27/20 09:09 Metoprolol Tartrate 100 Mg Tab PO 100 mg BID ESME Administration Morphine Sulfate 4 mg 07/26/20 10:03 07/27/20 10:30 Morphine 2 Mg/Ml Vial SLOW IVP 4 mg Q12H PRN Administration Pain Senna/Docusate Sodium 1 tab 07/26/20 21:00 07/27/20 09:09 Senokot S 8.6-50 Mg Tab PO 1 tab BID ESME Administration Sodium Chloride 10 ml 07/25/20 21:00 07/27/20 09:09 Flush - Normal Saline 10 Ml Syringe IVF 10 ml Q12HR ESME Administration - Exam General Appearance: NAD Eye: anicteric sclera Neck: supple Heart: RRR Respiratory: CTAB Gastrointestinal: soft, non-tender Extremities: no cyanosis Skin: no rashes Psychiatric: normal affect, normal behavior Hosp A/P - Plan (1) Perirectal abscess Code(s): K61.1 - RECTAL ABSCESS Status: Acute (2) Morbid obesity with BMI of 50.0-59.9, adult Code(s): E66.01 - MORBID (SEVERE) OBESITY DUE TO EXCESS CALORIES; Z68.43 - BODY MASS INDEX (BMI) 50.0-59.9, ADULT Status: Chronic (3) DM type 2 (diabetes mellitus, type 2) Status: Chronic Qualifiers: Diabetes mellitus [facility] insulin use: with exterminator use Diabetes mellitus complication status: without complication Qualified Code(s): E11.9 - Type 2 diabetes mellitus without complications; Z79.4 - USP (current) use of insulin; Z79.4 - USP (current) use of insulin; Z79.4 - terminal press operator (current) use of insulin; Z79.4 - USP (current) use of insulin (4) HTN (hypertension) Code(s): I10 - ESSENTIAL (PRIMARY) HYPERTENSION Status: Chronic Qualifiers: Hypertension type: essential hypertension Qualified Code(s): I10 - Essential (primary) hypertension - Plan * Elizabeth-rectal Abscess-status post debridement, preliminary buttock culture report indicates gram-negative melvin. Add levofloxacin due to penicillin allergy and await culture results. Continue IV vancomycin. * DM-blood sugar still high, increase Lantus to 10 units daily * HTN-blood pressure spikes, likely due to pain. Start PRN IV hydralazine.
[2020-07-27] MEDS ORDERED: hydrALAZINE 20 MG/ML VIAL SLOW IVP PRN (12:52)
[2020-07-27 18:26] LABS: Vancomycin, Trough 23.7 ug/mL
[2020-07-27] MEDS: Clotrimazole 2% 3 Day Vag Cr 22.2 GM TUBE VAG SCH (20:47)
[2020-07-28] MEDS: HYDROcodone/Acetaminophen 10/325 mg Tablet PO PRN ×6 (01:31→21:41)
[2020-07-28] MEDS: HumaLOG 300 UNITS/3 ML VIAL SC PRN ×3 (05:09→18:11)
[2020-07-28 05:52] LABS: #Basophils 0.1 thou/uL (0.0-0.2); #Eosinphils 0.2 thou/uL (0.0-0.7); #Lymphocytes 3.2 thou/uL (1.20-3.40); #Monocytes 0.9 thou/uL (0.11-0.59); #Neutrophils 10.2 thou/uL (1.40-6.50); %Basophils 0.4 % (0.0-1.0); %Eosinophils 1.6 % (0.0-10.0); %Lymphocytes 21.8 % (21.0-51.0); %Monocytes 6.5 % (0.0-10.0); %Neutrophils 69.8 % (42.0-75.0); Hemoglobin 13.1 g/dL (12.0-16.0); Mean Corpuscular HGB CONC 31.2 g/dL (32.0-36.0); Mean Corpuscular Hemoglobin 29.1 pg (27.0-31.0); Mean Corpuscular Volume 93.2 fL (78.0-98.0); Mean Platelet Volume 8.3 fL (7.4-10.4); Platelet Count 370 thou/uL (130-400); RBC Distribution Width 12.5 % (11.5-14.5); Red Blood Cell (RBC) Count 4.52 mill/uL (4.20-5.40); White Blood Cell (WBC) Count 14.6 thou/uL (4.8-10.8)
[2020-07-28] MEDS ORDERED: Vancomycin HCl 1.75 GM in Sodium Chloride 0.9% 500 ML IVPB SCH (06:00)
[2020-07-28 06:06] LABS: Vancomycin, Trough 12.6 ug/mL
[2020-07-28 06:08] LABS: Anion Gap 13 mmol/L (10-20); BUN (Urea Nitrogen) 8 mg/dL (9.8-20.1); Calc. Creatinine Clearance 170 mL/min (70-130); Calcium 8.4 mg/dL (7.8-10.44); Carbon Dioxide 29 mmol/L (22-29); Chloride 97 mmol/L (98-107); Estimated GFR-MDRD 77; Glucose 263 mg/dL (70-105); Potassium 3.3 mmol/L (3.5-5.1); Sodium 136 mmol/L (136-145)
[2020-07-28] MEDS: Vancomycin 1.5 GRAM/300 ML BAG 1.5 GM in Premix Bag 1 BAG IVPB SCH (06:20)
[2020-07-28] MEDS ORDERED: Potassium Chloride 20 MEQ TAB PO SCH (08:45)
[2020-07-28] MEDS: Famotidine 20 MG TAB PO SCH ×2 (09:12→21:43)
[2020-07-28] MEDS: Enoxaparin Sodium 40 MG/0.4 ML SYRINGE SC SCH (09:12)
[2020-07-28] MEDS: Metoprolol Tartrate 100 MG TAB PO SCH ×2 (09:13→21:43)
[2020-07-28] MEDS: Senokot S 8.6-50 MG TAB PO SCH ×2 (09:13→21:42)
[2020-07-28] MEDS: Insulin Glargine 10 UNITS in Pre-Filled Syringe 1 EACH SC SCH (09:23)
--- NOTE | 2020-07-28 11:42 | PDOC.HOSPP ---
- Subjective Encounter Date: 07/28/20 Encounter Time: 08:30 Subjective: Patient seen for follow-up for perianal abscess. She denies chest pain or shortness of breath. - Objective Vital Signs & Weight: Vital Signs (12 hours) Temp Pulse Resp BP BP Pulse Ox 07/28/20 08:00 98.5 F 76 18 131/76 96 07/28/20 04:00 98.4 F 67 20 147/73 H 92 L 07/28/20 02:59 95 Weight Admit Weight 284 lb 0.32 oz Weight 284 lb 0.3 oz I&O: 07/27/20 07/28/20 07/29/20 06:59 06:59 06:59 Intake Total 1440 Balance 1440 Result Diagrams: 07/28/20 05:27 07/28/20 05:27 Additional Labs: Accuchecks 07/27/20 07/27/20 07/27/20 20:18 16:11 11:53 POC Glucose 236 H 270 H 240 H I reviewed patient's labs and MAR Hospitalist ROS - Review of Systems Cardiovascular: denies: chest pain, palpitations, orthopnea, paroxysmal noc. dyspnea, edema, light headedness Neurological: denies: weakness, numbness, incoordination, change in speech, confusion, seizures - Medication Medications: Active Medications Generic Name Dose Route Start Last Admin Trade Name Freq PRN Reason Stop Dose Admin Hydrocodone Bitart/Acetaminophen 1 tab 07/24/20 17:20 07/28/20 09:13 [place] 10/325 PO 1 tab Q4H PRN Administration Severe Pain (7-10) Hydrocodone Bitart/Acetaminophen 1 tab 07/24/20 17:20 07/25/20 09:00 [place] 5/325 PO 1 tab Q4H PRN Administration Moderate Pain (4-6) Clotrimazole 1 gm 07/27/20 21:00 07/27/20 20:47 Clotrimazole 2% 3 Day Vag Cr 22.2 Gm Tube VAG 07/29/20 21:01 1 unit HS ESME Administration Enoxaparin Sodium 40 mg 07/25/20 09:00 07/28/20 09:12 Lovenox SC 40 mg 0900 ESME Administration Famotidine 20 mg 07/24/20 21:00 07/28/20 09:12 Pepcid PO 20 mg BID ESME Administration Insulin Glargine 10 units/ 0.1 mls @ 0 mls/hr 07/27/20 09:00 07/28/20 09:23 Miscellaneous Medication SC 0.1 mls QAM ESME Administration Levofloxacin 500 mg/ Device 100 mls @ 100 mls/hr 07/27/20 13:00 07/27/20 13:34 IVPB 100 mls Q24HR ESME Administration Vancomycin HCl 1.75 gm/ Sodium 500 mls @ 250 mls/hr 07/28/20 06:00 07/28/20 06:20 Chloride IVPB 500 mls 0600,1800 ESME Administration Insulin Human Lispro 0 units 07/25/20 19:00 07/28/20 05:09 Humalog 300 Units/3 Ml Vial SC 4 unit .MODERATE SLIDING SC PRN Administration MODERATE SLIDING SCALE Protocol Insulin Human Lispro 0 units 07/25/20 19:00 07/25/20 21:10 Humalog 300 Units/3 Ml Vial SC 5 unit .BEDTIME SLIDING SC PRN Administration BEDTIME SLIDING SCALE Protocol Metoprolol Tartrate 100 mg 07/25/20 21:00 07/28/20 09:13 Metoprolol Tartrate 100 Mg Tab PO 100 mg BID ESME Administration Morphine Sulfate 4 mg 07/26/20 10:03 07/27/20 10:30 Morphine 2 Mg/Ml Vial SLOW IVP 4 mg Q12H PRN Administration Pain Senna/Docusate Sodium 1 tab 07/26/20 21:00 07/28/20 09:13 Senokot S 8.6-50 Mg Tab PO 1 tab BID ESME Administration Sodium Chloride 10 ml 07/25/20 21:00 07/28/20 09:14 Flush - Normal Saline 10 Ml Syringe IVF 10 ml Q12HR ESME Administration - Exam General - other findings: Morbid obesity Eye: anicteric sclera ENT: moist mucosa Neck: supple Heart: RRR, no rubs Respiratory: CTAB Gastrointestinal: soft, non-tender Skin - other findings: Status post I&D and debridement of left gluteal and perianal abscess Psychiatric: normal affect, normal behavior Hosp A/P - Plan (1) perianal abscess Code(s): K61.1 - RECTAL ABSCESS Status: Acute (2) Morbid obesity with BMI of 50.0-59.9, adult Code(s): E66.01 - MORBID (SEVERE) OBESITY DUE TO EXCESS CALORIES; Z68.43 - BODY MASS INDEX (BMI) 50.0-59.9, ADULT Status: Chronic (3) DM type 2 (diabetes mellitus, type 2) Status: Chronic Qualifiers: Diabetes mellitus halfway insulin use: with termite control servicer use Diabetes mellitus complication status: without complication Qualified Code(s): E11.9 - Type 2 diabetes mellitus without complications; Z79.4 - termite control servicer (current) use of insulin; Z79.4 - termite control servicer (current) use of insulin; Z79.4 - intermediate (current) use of insulin; Z79.4 - intermediate (current) use of insulin (4) HTN (hypertension) Code(s): I10 - ESSENTIAL (PRIMARY) HYPERTENSION Status: Chronic Qualifiers: Hypertension type: essential hypertension Qualified Code(s): I10 - E ssential (primary) hypertension - Plan * Left gluteal and perianal abscess. Wound cultures are growing E coli and Enterococcus faecalis. Continue levofloxacin and IV vancomycin, consult ID service for opinion and help with antibiotic management. * DM-blood sugar still high, increase Lantus to 15 units daily * HTN-reasonably controlled * Replace potassium * Disposition: Likely home early next week.
[2020-07-28] MEDS ORDERED: Insulin Glargine 5 UNITS in Pre-Filled Syringe 1 EACH SC SCH (12:00)
[2020-07-28] MEDS: Morphine 2 MG/ML VIAL SLOW IVP PRN (12:07)
[2020-07-28] MEDS ORDERED: Amoxicillin/Potassium Clav 875 MG TAB PO SCH (21:00)
[2020-07-28] MEDS: Clotrimazole 2% 3 Day Vag Cr 22.2 GM TUBE VAG SCH (21:47)
--- NOTE | 2020-07-28 22:27 | CON ---
DATE OF CONSULTATION: 07/28/2020 REASON FOR CONSULTATION: Abscess at the left gluteal region. HISTORY OF PRESENT ILLNESS: A 54-year-old who has a history of obesity and type 2 diabetes, chronic smoking with a history of vulvar abscess in 2017 and now comes in with abscess in the left gluteal region, drained at [facility], given oral antimicrobial therapy. She persisted with the inflammatory process, was then admitted and Dr. Mars performed I and D on July 25, this was done in the operating room. There was an excisional debridement carried out. The island of skin between the two openings was excised. Purulent subcutaneous tissues were extracted and sent to microbiology. Cultures are discussed below. The cavities were irrigated with saline. The cultures yielded E coli and Enterococcus faecalis. Final results, E coli is a broad susceptibility profile. E faecalis with usual profile susceptibility. No headaches, sore throat, odynophagia, or dysphagia. No dyspnea, cough, or sputum production. No abdominal pain. Voiding without difficulty. A little bit constipated. No neurological symptoms. PAST MEDICAL HISTORY: Hypertension, obesity, type 2 diabetes, labial abscess in 2017. SOCIAL HISTORY: Drinks occasionally. Smokes daily. Lives in an apartment here in [facility]. She works for [employer] in the [employer] department. ALLERGIES: BACTRIM. REPORTEDLY HAD A LOCAL REACTION TO AN INJECTION OF PENICILLIN MANY YEARS AGO. CURRENT MEDICATIONS: Currently, she is on insulin, levofloxacin, and vancomycin. FAMILY HISTORY: Noncontributory. PHYSICAL EXAMINATION: VITAL SIGNS: She has been afebrile since admission. BP 130/70, pulse 76, respirations 18, and O2 saturation 96. GENERAL: Does not appear in distress, oriented, follows commands. SKIN: Shows the area of abscess cavity packed in the left gluteal region. Below this, there is about 9 cm area of induration, which is quite tender to palpation. She has a peripheral IV access. No lymphadenopathy. HEENT: Noncontributory. NECK: Supple. LUNGS: Symmetric. Clear breath sounds. HEART: S1 and S2. Regular rate. No S3 or S4. ABDOMEN: Soft, not distended, or tender. No ascites. No bladder distention. EXTREMITIES: Some osteoarthrosis in knees and ankles. Pulses 1+ in dorsalis pedis. Plantar responses are flexor. Moves extremities equally with limitations imposed by inflammatory process. Cognitive function appears to be intact. LABORATORY DATA: White cell count is 13.5, is up to 14.6, hemoglobin 13, platelets 370 with a decrease in neutrophil percentage from 76 to 69. Sodium 136, creatinine 0.78. SARS-COVID not detected. Vancomycin trough was 12.6. Microbiology has been discussed. The previous culture from July 20 showed E faecalis with the usual susceptibility profile. ASSESSMENT: Obesity, hypertension, type 2 diabetes, abscess, gluteal region, left side, status post I and D x2. The last one in the operating room by Dr. Mars with extensive resection of necrotic tissue. The pathology has shown the expected abscess and fat necrosis, but no malignancy. DISCUSSION: After proper I and D, the patient now is ready for transition to oral antimicrobial therapy. We will switch her to oral Levaquin plus oral Augmentin and continue this for probably at least 2 weeks. Despite the reported allergy to penicillin, the actual reaction was a local reaction to an injection many years ago, so I do not predict any problems with her taking penicillin. Job ID: [id number]
[2020-07-28] MEDS ORDERED: diphenhydrAMINE 50 MG/ML VIAL ONE (23:33)
[2020-07-28] MEDS ORDERED: diphenhydrAMINE 50 MG/ML VIAL IVP SCH (23:45)
[2020-07-29] MEDS: HYDROcodone/Acetaminophen 10/325 mg Tablet PO PRN ×3 (05:22→22:01)
[2020-07-29] MEDS: HumaLOG 300 UNITS/3 ML VIAL SC PRN ×4 (05:22→22:02)
[2020-07-29 06:06] LABS: #Basophils 0.1 thou/uL (0.0-0.2); #Eosinphils 0.3 thou/uL (0.0-0.7); #Lymphocytes 3.5 thou/uL (1.20-3.40); #Monocytes 0.8 thou/uL (0.11-0.59); #Neutrophils 6.6 thou/uL (1.40-6.50); %Basophils 0.5 % (0.0-1.0); %Eosinophils 2.5 % (0.0-10.0); %Lymphocytes 30.9 % (21.0-51.0); %Monocytes 7.3 % (0.0-10.0); %Neutrophils 58.8 % (42.0-75.0); Hemoglobin 13.6 g/dL (12.0-16.0); Mean Corpuscular HGB CONC 33.2 g/dL (32.0-36.0); Mean Corpuscular Hemoglobin 30.8 pg (27.0-31.0); Mean Corpuscular Volume 92.8 fL (78.0-98.0); Mean Platelet Volume 8.4 fL (7.4-10.4); Platelet Count 359 thou/uL (130-400); RBC Distribution Width 12.3 % (11.5-14.5); Red Blood Cell (RBC) Count 4.42 mill/uL (4.20-5.40); White Blood Cell (WBC) Count 11.3 thou/uL (4.8-10.8)
[2020-07-29 06:30] LABS: Anion Gap 11 mmol/L (10-20); BUN (Urea Nitrogen) 7 mg/dL (9.8-20.1); Calc. Creatinine Clearance 186 mL/min (70-130); Calcium 8.5 mg/dL (7.8-10.44); Carbon Dioxide 29 mmol/L (22-29); Chloride 100 mmol/L (98-107); Estimated GFR-MDRD 86; Glucose 194 mg/dL (70-105); Potassium 3.4 mmol/L (3.5-5.1); Sodium 137 mmol/L (136-145)
[2020-07-29] MEDS ORDERED: Insulin Glargine 15 UNITS in Pre-Filled Syringe 1 EACH SC SCH (09:00)
[2020-07-29] MEDS: Metoprolol Tartrate 100 MG TAB PO SCH ×2 (09:12→22:00)
[2020-07-29] MEDS: Famotidine 20 MG TAB PO SCH ×2 (09:12→22:01)
[2020-07-29] MEDS: Senokot S 8.6-50 MG TAB PO SCH ×2 (09:12→22:01)
[2020-07-29] MEDS: Enoxaparin Sodium 40 MG/0.4 ML SYRINGE SC SCH (09:13)
[2020-07-29] MEDS: Morphine 2 MG/ML VIAL SLOW IVP PRN (10:14)
--- NOTE | 2020-07-29 10:57 | PDOC.HOSPP ---
- Subjective Encounter Date: 07/29/20 Encounter Time: 07:00 Subjective: Patient was seen for follow-up of perianal abscess. She had chest heaviness and facial itching after administration of Augmentin last night. She reports feeling better now. - Objective Vital Signs & Weight: Vital Signs (12 hours) Temp Pulse Resp BP Pulse Ox 07/29/20 08:00 98.7 F 68 18 153/84 H 95 07/28/20 23:41 98.4 F 54 L 18 143/85 H 95 Weight Admit Weight 284 lb 0.32 oz Weight 284 lb 0.3 oz I&O: 07/28/20 07/29/20 07/30/20 06:59 06:59 06:59 Intake Total 622 Balance 622 Result Diagrams: 07/29/20 05:52 07/29/20 05:52 Additional Labs: Accuchecks 07/29/20 07/28/20 07/28/20 04:27 20:56 16:49 POC Glucose 199 H 194 H 255 H 07/28/20 12:50 POC Glucose 271 H I reviewed patient's labs and MAR Hospitalist ROS - Review of Systems Constitutional: denies: fever, chills, sweats, weakness, malaise Gastrointestinal: denies: nausea, vomiting, abdominal pain, diarrhea, constipation, melena, hematochezia Genitourinary: denies: dysuria, frequency, incontinence, hematuria, retention - Medication Medications: Active Medications Generic Name Dose Route Start Last Admin Trade Name Freq PRN Reason Stop Dose Admin Hydrocodone Bitart/Acetaminophen 1 tab 07/24/20 17:20 07/29/20 05:22 [place] 10/325 PO 1 tab Q4H PRN Administration Severe Pain (7-10) Hydrocodone Bitart/Acetaminophen 1 tab 07/24/20 17:20 07/25/20 09:00 [place] 5/325 PO 1 tab Q4H PRN Administration Moderate Pain (4-6) Clotrimazole 1 gm 07/27/20 21:00 07/28/20 21:47 Clotrimazole 2% 3 Day Vag Cr 22.2 Gm Tube VAG 07/29/20 21:01 1 unit HS ESME Administration Enoxaparin Sodium 40 mg 07/25/20 09:00 07/29/20 09:13 Lovenox SC 40 mg 0900 ESME Administration Famotidine 20 mg 07/24/20 21:00 07/29/20 09:12 Pepcid PO 20 mg BID ESME Administration Insulin Glargine 15 units/ 0.15 mls @ 0 mls/hr 07/29/20 09:00 07/29/20 09:12 Miscellaneous Medication SC 0.15 mls QAM ESME Administration Insulin Human Lispro 0 units 07/25/20 19:00 07/29/20 05:22 Humalog 300 Units/3 Ml Vial SC 2 unit .MODERATE SLIDING SC PRN Administration MODERATE SLIDING SCALE Protocol Insulin Human Lispro 0 units 07/25/20 19:00 07/25/20 21:10 Humalog 300 Units/3 Ml Vial SC 5 unit .BEDTIME SLIDING SC PRN Administration BEDTIME SLIDING SCALE Protocol Levofloxacin 750 mg 07/29/20 06:00 07/29/20 05:22 Levofloxacin 750 Mg Tab PO 750 mg 0600 ESME Administration Metoprolol Tartrate 100 mg 07/25/20 21:00 07/29/20 09:12 Metoprolol Tartrate 100 Mg Tab PO 100 mg BID ESME Administration Morphine Sulfate 4 mg 07/26/20 10:03 07/29/20 10:14 Morphine 2 Mg/Ml Vial SLOW IVP 4 mg Q12H PRN Administration Pain Senna/Docusate Sodium 1 tab 07/26/20 21:00 07/29/20 09:12 Senokot S 8.6-50 Mg Tab PO 1 tab BID ESME Administration Sodium Chloride 10 ml 07/25/20 21:00 07/29/20 09:13 Flush - Normal Saline 10 Ml Syringe IVF 10 ml Q12HR ESME Administration - Exam General - other findings: Morbid obesity Eye: anicteric sclera ENT: normocephalic atraumatic Neck: supple Heart: RRR Respiratory: CTAB Gastrointestinal: soft, non-tender Extremities: no clubbing Skin: no rashes Psychiatric: normal affect, normal behavior Hosp A/P - Plan -Assessment (1) perianal abscess Code(s): K61.1 - RECTAL ABSCESS Status: Acute (2) Morbid obesity with BMI of 50.0-59.9, adult Code(s): E66.01 - MORBID (SEVERE) OBESITY DUE TO EXCESS CALORIES; Z68.43 - BODY MASS INDEX (BMI) 50.0-59.9, ADULT Status: Chronic (3) DM type 2 (diabetes mellitus, type 2) Status: Chronic Qualifiers: 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 Diabetes mellitus complication status: without complication Qualified Code(s): E11.9 - Type 2 diabetes mellitus without complications; Z79.4 - skilled nursing (current) use of insulin; Z79.4 - local company intermodal truck driver (current) use of insulin; Z79.4 - local company intermodal truck driver (current) use of insulin; Z79.4 - skilled nursing (current) use of insulin (4) HTN (hypertension) Code(s): I10 - ESSENTIAL (PRIMARY) HYPERTENSION Status: Chronic Qualifiers: Hypertension type: essential hypertension Qualified Code(s): I10 - Essential (primary) hypertension - Plan * Left gluteal and perianal abscess. Wound cultures are growing E coli and Enterococcus faecalis. We will continue levofloxacin, will check with infectious disease service for an alternative to Augmentin. * DM-blood sugar still high, increase Lantus to 20 units daily * HTN-reasonably controlled * Replace potassium * Disposition: Likely home early next week.
[2020-07-29] MEDS ORDERED: Potassium Chloride 20 MEQ TAB PO SCH (11:00)
[2020-07-29] MEDS ORDERED: Insulin Glargine 5 UNITS in Pre-Filled Syringe 1 EACH SC SCH (11:15)
[2020-07-29 17:31] LABS: Vancomycin, Trough 4.2 ug/mL
--- NOTE | 2020-07-29 21:02 | PDOC.EVN ---
Event Note - Event Note Event Note: Notified by RN concern regarding patients antibiotic regimen of Levaquin. She was recommended Augmentin and Levaquin by Dr. Samaniego, due to allergic reaction to Agument (hx of PCN allergy) it was discontinued. He will clarify with Dr. Samaniego if any further changes indicated to antibiotic regimen. Cultures from I&D showed E. Coli, moderate. Enterococcus faecalis and Anaerobic Gram + rods, Prevotella bivia. Antibiotic regimen as Per Dr. Samaniego. Concern regarding abscess enlarging to left thigh, below gluteal fold. Day team discussed with Dr. Mars who advised re-consulting surgery if need for I&D. Day team to decide if indicated.
[2020-07-29] MEDS: MEROPENEM 1 GM/50 ML 1 GM in Premix Bag 1 BAG IVPB SCH (21:47)
[2020-07-29] MEDS: Clotrimazole 2% 3 Day Vag Cr 22.2 GM TUBE VAG SCH (22:02)
[2020-07-30 05:57] LABS: #Basophils 0.1 thou/uL (0.0-0.2); #Eosinphils 0.3 thou/uL (0.0-0.7); #Neutrophils 7.7 thou/uL (1.40-6.50); %Basophils 0.5 % (0.0-1.0); %Eosinophils 2.4 % (0.0-10.0); %Lymphocytes 30.5 % (21.0-51.0); %Monocytes 7.5 % (0.0-10.0); %Neutrophils 59.2 % (42.0-75.0); Hemoglobin 12.9 g/dL (12.0-16.0); Mean Corpuscular HGB CONC 32.4 g/dL (32.0-36.0); Mean Corpuscular Hemoglobin 30.1 pg (27.0-31.0); Mean Corpuscular Volume 92.9 fL (78.0-98.0); Mean Platelet Volume 8.6 fL (7.4-10.4); Platelet Count 395 thou/uL (130-400); RBC Distribution Width 12.8 % (11.5-14.5); Red Blood Cell (RBC) Count 4.27 mill/uL (4.20-5.40); White Blood Cell (WBC) Count 12.9 thou/uL (4.8-10.8)
[2020-07-30] MEDS: MEROPENEM 1 GM/50 ML 1 GM in Premix Bag 1 BAG IVPB SCH ×3 (06:03→23:09)
[2020-07-30] MEDS: HumaLOG 300 UNITS/3 ML VIAL SC PRN ×3 (06:07→16:57)
[2020-07-30] MEDS: HYDROcodone/Acetaminophen 10/325 mg Tablet PO PRN ×2 (06:12→20:11)
--- NOTE | 2020-07-30 06:17 | PRG ---
DATE OF SERVICE: 07/30/2020 SUBJECTIVE: The patient is still with pain in the perianal area. The patient has no respiratory symptoms. No abdominal pain. Voiding without difficulty. OBJECTIVE: VITAL SIGNS: She is afebrile. LUNGS: Clear. HEART: S1, S2. Regular rate. ABDOMEN: Soft. SKIN: Perianal area is still quite tender in the more dependent regions below the area of incision and debridement. LABORATORY DATA: White cell count is at 11.3, hemoglobin 13, platelets 359. Creatinine 0.71. Microbiology; now we have 2 different anaerobes from the sample in addition to E coli and Enterococcus faecalis. The patient had some perception of itching and what she describes as pressure in the chest when she received the Augmentin. I am not sure if this is a true reaction or if she is just having a psychogenic reaction to the administration of medication, but the Augmentin was discontinued. She has been transitioned to meropenem now in view of the new findings in Microbiology. ASSESSMENT AND DISCUSSION: Obesity, hypertension, type 2 diabetes, abscess in gluteal/perianal area with polymicrobial harshad including gnr and anaerobes. There is necrotic tissue identified and we will continue meropenem. She may need require further surgical debridement, those polymicrobial infections in the perianal area may lead to extension of the necrotizing process sometimes. She will need to continue on IV therapy for now with careful followup. Job ID: [id number] [facility] CENTERKayli
[2020-07-30 06:18] LABS: Anion Gap 13 mmol/L (10-20); BUN (Urea Nitrogen) 8 mg/dL (9.8-20.1); Calc. Creatinine Clearance 195 mL/min (70-130); Calcium 8.4 mg/dL (7.8-10.44); Carbon Dioxide 29 mmol/L (22-29); Chloride 100 mmol/L (98-107); Estimated GFR-MDRD Greater than 90; Glucose 203 mg/dL (70-105); Potassium 3.3 mmol/L (3.5-5.1); Sodium 139 mmol/L (136-145)
[2020-07-30] MEDS: Famotidine 20 MG TAB PO SCH ×2 (08:44→20:12)
[2020-07-30] MEDS: Metoprolol Tartrate 100 MG TAB PO SCH ×2 (08:44→20:12)
[2020-07-30] MEDS: Enoxaparin Sodium 40 MG/0.4 ML SYRINGE SC SCH (08:44)
[2020-07-30] MEDS: Senokot S 8.6-50 MG TAB PO SCH ×2 (08:44→20:12)
[2020-07-30] MEDS: Insulin Glargine 20 UNITS in Pre-Filled Syringe 1 EACH SC SCH (08:57)
[2020-07-30] MEDS: Morphine 2 MG/ML VIAL SLOW IVP PRN (11:09)
[2020-07-30] MEDS: HYDROcodone/Acetaminophen 5/325 mg Tablet PO PRN (12:23)
--- NOTE | 2020-07-30 16:30 | ULT ---
Exam: Left gluteal soft tissue ultrasound HISTORY: Swelling and erythema. COMPARISON: none FINDINGS: Targeted sonographic images demonstrate extensive edema involving the soft tissues. No evidence of a loculated fluid collection. There does not appear to be a tract from the subcutaneous fat extending to the dermis Impression: Extensive soft tissue edema. No evidence of abscess or sinus tract.
[2020-07-30] MEDS ORDERED: Ondansetron PF 4 MG/2 ML Vial IVP PRN (16:50)
[2020-07-30] MEDS ORDERED: Morphine 4 MG/ML VIAL SLOW IVP SCH (17:00)
[2020-07-30 17:38] LABS: Troponin I Less than 0.010 ng/mL (< 0.028)
[2020-07-31] MEDS: HYDROcodone/Acetaminophen 10/325 mg Tablet PO PRN ×3 (03:29→22:10)
[2020-07-31] MEDS: MEROPENEM 1 GM/50 ML 1 GM in Premix Bag 1 BAG IVPB SCH ×3 (06:09→21:07)
[2020-07-31] MEDS: Metoprolol Tartrate 100 MG TAB PO SCH ×2 (06:09→21:09)
[2020-07-31] MEDS: Famotidine 20 MG TAB PO SCH ×2 (08:18→21:08)
[2020-07-31] MEDS: Insulin Glargine 20 UNITS in Pre-Filled Syringe 1 EACH SC SCH (08:18)
[2020-07-31] MEDS: Enoxaparin Sodium 40 MG/0.4 ML SYRINGE SC SCH (08:18)
[2020-07-31] MEDS: Senokot S 8.6-50 MG TAB PO SCH ×2 (08:19→21:10)
[2020-07-31] MEDS ORDERED: Fentanyl 100 MCG/2 ML VIAL ONE ×5 (10:53→16:51)
--- NOTE | 2020-07-31 12:57 | PDOC.HOSPP ---
- Subjective Encounter Date: 07/31/20 Encounter Time: 09:00 Subjective: Patient seen for follow-up regarding perianal abscess. Awaiting debridement. - Objective Vital Signs & Weight: Vital Signs (12 hours) Temp Pulse Resp BP BP Pulse Ox 07/31/20 08:00 92 L 07/31/20 07:48 98.3 F 56 L 16 135/62 92 L 07/31/20 06:07 61 16 145/71 H Weight Admit Weight 284 lb 0.32 oz Weight 284 lb 0.3 oz I&O: 07/30/20 07/31/20 08/01/20 06:59 06:59 06:59 Intake Total 600 1989 Balance 600 1989 Result Diagrams: 07/30/20 05:19 07/30/20 05:19 Additional Labs: Accuchecks 07/31/20 07/30/20 07/30/20 05:25 19:54 15:35 POC Glucose 228 H 215 H 320 H I reviewed patient's labs and MAR Hospitalist ROS - Review of Systems Respiratory: denies: cough, dry, shortness of breath, hemoptysis, SOB with excertion, pleuritic pain, sputum, wheezing Cardiovascular: denies: chest pain, palpitations, orthopnea, paroxysmal noc. dyspnea, edema, light headedness - Medication Medications: Active Medications Generic Name Dose Route Start Last Admin Trade Name Freq PRN Reason Stop Dose Admin Hydrocodone Bitart/Acetaminophen 1 tab 07/24/20 17:20 07/31/20 03:29 [place] 10/325 PO 1 tab Q4H PRN Administration Severe Pain (7-10) Hydrocodone Bitart/Acetaminophen 1 tab 07/24/20 17:20 07/30/20 12:23 [place] 5/325 PO 1 tab Q4H PRN Administration Moderate Pain (4-6) Enoxaparin Sodium 40 mg 07/25/20 09:00 07/31/20 08:18 Lovenox SC Not Given 0900 ESME Famotidine 20 mg 07/24/20 21:00 07/31/20 08:18 Pepcid PO Not Given BID ESME Insulin Glargine 20 units/ 0.2 mls @ 0 mls/hr 07/30/20 09:00 07/31/20 08:18 Miscellaneous Medication SC 0.2 mls QAM ESME Administration Meropenem 1 gm/ Device 50 mls @ 100 mls/hr 07/29/20 22:00 07/31/20 06:09 IVPB 50 mls Q8HR ESME Administration Insulin Human Lispro 0 units 07/25/20 19:00 07/30/20 16:57 Humalog 300 Units/3 Ml Vial SC 8 unit .MODERATE SLIDING SC PRN Administration MODERATE SLIDING SCALE Protocol Insulin Human Lispro 0 units 07/25/20 19:00 07/29/20 22:02 Humalog 300 Units/3 Ml Vial SC 3 unit .BEDTIME SLIDING SC PRN Administration BEDTIME SLIDING SCALE Protocol Metoprolol Tartrate 100 mg 07/25/20 21:00 07/31/20 06:09 Metoprolol Tartrate 100 Mg Tab PO 100 mg BID ESME Administration Morphine Sulfate 4 mg 07/26/20 10:03 07/30/20 11:09 Morphine 2 Mg/Ml Vial SLOW IVP 4 mg Q12H PRN Administration Pain Ondansetron HCl 4 mg 07/30/20 16:50 07/30/20 16:56 Ondansetron Pf 4 Mg/2 Ml Vial IVP 4 mg Q6H PRN Administration Nausea/Vomiting Senna/Docusate Sodium 1 tab 07/26/20 21:00 07/31/20 08:19 Senokot S 8.6-50 Mg Tab PO Not Given BID ESME Sodium Chloride 10 ml 07/25/20 21:00 07/31/20 08:19 Flush - Normal Saline 10 Ml Syringe IVF 10 ml Q12HR ESME Administration - Exam General - other findings: Morbid obesity Eye: anicteric sclera ENT: normocephalic atraumatic Neck: no thyromegaly Heart: RRR Respiratory: CTAB Gastrointestinal: soft Musculoskeletal: normal tone Psychiatric: normal affect, normal behavior Hosp A/P - Plan -Assessment (1) perianal abscess Code(s): K61.1 - RECTAL ABSCESS Status: Acute (2) Morbid obesity with BMI of 50.0-59.9, adult Code(s): E66.01 - MORBID (SEVERE) OBESITY DUE TO EXCESS CALORIES; Z68.43 - BODY MASS INDEX (BMI) 50.0-59.9, ADULT Status: Chronic (3) DM type 2 (diabetes mellitus, type 2) Status: Chronic Qualifiers: Diabetes mellitus correction insulin use: with correction use Diabetes mellitus complication status: without complication Qualified Code(s): E11.9 - Type 2 diabetes mellitus without complications; Z79.4 - intermission coordinator (current) use of insulin; Z79.4 - intermission coordinator (current) use of insulin; Z79.4 - group home (current) use of insulin; Z79.4 - group home (current) use of insulin (4) HTN (hypertension) Code(s): I10 - ESSENTIAL (PRIMARY) HYPERTENSION Status: Chronic Qualifiers: Hypertension type: essential hypertension Qualified Code(s): I10 - Essential (primary) hypertension - Plan * Left gluteal and perianal abscess. Wound cultures are growing E coli and Enterococcus faecalis. Patient currently on meropenem, will continue. General surgery service has been reconsulted for debridement. * DM-blood sugar still high, increase Lantus to 25 units daily * HTN-reasonably controlled * Check a.m. labs *
--- NOTE | 2020-07-31 13:01 | PDOC.HOSPP ---
- Subjective Encounter Date: 07/30/20 Encounter Time: 16:00 Subjective: Follow-up visit for gluteal abscess and perianal abscess. Patient's antibiotic has been changed to meropenem. - Objective Vital Signs & Weight: Vital Signs (12 hours) Temp Pulse Resp BP BP Pulse Ox 07/31/20 08:00 92 L 07/31/20 07:48 98.3 F 56 L 16 135/62 92 L 07/31/20 06:07 61 16 145/71 H Weight Admit Weight 284 lb 0.32 oz Weight 284 lb 0.3 oz I&O: 07/30/20 07/31/20 08/01/20 06:59 06:59 06:59 Intake Total 600 1989 Balance 600 1989 Result Diagrams: 07/30/20 05:19 07/30/20 05:19 Additional Labs: Accuchecks 07/31/20 07/30/20 07/30/20 05:25 19:54 15:35 POC Glucose 228 H 215 H 320 H I reviewed patient's labs and MAR Hospitalist ROS - Review of Systems Genitourinary: denies: dysuria, frequency, incontinence, hematuria, retention Skin: denies: rash, lesions, reilly, bruising - Medication Medications: Active Medications Generic Name Dose Route Start Last Admin Trade Name Freq PRN Reason Stop Dose Admin Hydrocodone Bitart/Acetaminophen 1 tab 07/24/20 17:20 07/31/20 03:29 [place] 10/325 PO 1 tab Q4H PRN Administration Severe Pain (7-10) Hydrocodone Bitart/Acetaminophen 1 tab 07/24/20 17:20 07/30/20 12:23 [place] 5/325 PO 1 tab Q4H PRN Administration Moderate Pain (4-6) Enoxaparin Sodium 40 mg 07/25/20 09:00 07/31/20 08:18 Lovenox SC Not Given 0900 ESME Famotidine 20 mg 07/24/20 21:00 07/31/20 08:18 Pepcid PO Not Given BID ESME Meropenem 1 gm/ Device 50 mls @ 100 mls/hr 07/29/20 22:00 07/31/20 06:09 IVPB 50 mls Q8HR ESME Administration Insulin Human Lispro 0 units 07/25/20 19:00 07/30/20 16:57 Humalog 300 Units/3 Ml Vial SC 8 unit .MODERATE SLIDING SC PRN Administration MODERATE SLIDING SCALE Protocol Insulin Human Lispro 0 units 07/25/20 19:00 07/29/20 22:02 Humalog 300 Units/3 Ml Vial SC 3 unit .BEDTIME SLIDING SC PRN Administration BEDTIME SLIDING SCALE Protocol Metoprolol Tartrate 100 mg 07/25/20 21:00 07/31/20 06:09 Metoprolol Tartrate 100 Mg Tab PO 100 mg BID ESME Administration Morphine Sulfate 4 mg 07/26/20 10:03 07/30/20 11:09 Morphine 2 Mg/Ml Vial SLOW IVP 4 mg Q12H PRN Administration Pain Ondansetron HCl 4 mg 07/30/20 16:50 07/30/20 16:56 Ondansetron Pf 4 Mg/2 Ml Vial IVP 4 mg Q6H PRN Administration Nausea/Vomiting Senna/Docusate Sodium 1 tab 07/26/20 21:00 07/31/20 08:19 Senokot S 8.6-50 Mg Tab PO Not Given BID ESME Sodium Chloride 10 ml 07/25/20 21:00 07/31/20 08:19 Flush - Normal Saline 10 Ml Syringe IVF 10 ml Q12HR ESME Administration - Exam General - other findings: Morbidly obese ENT: moist mucosa Neck: supple Heart: RRR Respiratory: CTAB Gastrointestinal: soft Skin: no rashes Psychiatric: normal affect Hosp A/P - Plan -Assessment (1) perianal abscess Code(s): K61.1 - RECTAL ABSCESS Status: Acute (2) Morbid obesity with BMI of 50.0-59.9, adult Code(s): E66.01 - MORBID (SEVERE) OBESITY DUE TO EXCESS CALORIES; Z68.43 - BODY MASS INDEX (BMI) 50.0-59.9, ADULT Status: Chronic (3) DM type 2 (diabetes mellitus, type 2) Status: Chronic 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 Wound cultures are growing E coli and Enterococcus faecalis. Antibiotic has been changed to meropenem. Will consult general surgery. * DM-blood sugar still high, continue Accu-Cheks and insulin sliding scale for now. * HTN-reasonably controlled *
[2020-07-31] MEDS ORDERED: EPHEDRINE 25 MG/5 ML SYRINGE ONE (13:55)
[2020-07-31] MEDS ORDERED: Lidocaine 1% PF 5 ML VIAL ONE (13:55)
[2020-07-31] MEDS ORDERED: PROPOFOL 200 MG/20 ML VIAL ONE (13:55)
[2020-07-31] MEDS ORDERED: Ondansetron PF 4 MG/2 ML Vial ONE (13:55)
[2020-07-31] MEDS ORDERED: Succinylcholine Chloride 20 MG/ML 10 ml SYRINGE FS ONE (13:55)
[2020-07-31] MEDS ORDERED: Famotidine/PF 20 mg/2ml Vial ONE (15:17)
[2020-07-31] MEDS ORDERED: Ondansetron HCl/PF 4 MG/2 ML Vial IVP PRN (16:37)
[2020-07-31] MEDS ORDERED: Promethazine HCl 25 MG/ML VIAL SLOW IVP PRN (16:37)
[2020-07-31] MEDS ORDERED: Promethazine HCl 25 MG/ML VIAL IM PRN (16:37)
[2020-07-31] MEDS: Morphine 2 MG/ML VIAL SLOW IVP PRN (18:40)
[2020-07-31] MEDS: Bupropion 150 MG SR TAB PO SCH (21:08)
[2020-07-31] MEDS: Lisinopril 5 MG TAB PO SCH (21:09)
--- NOTE | 2020-07-31 21:18 | OP ---
DATE OF PROCEDURE: 07/31/2020 PREOPERATIVE DIAGNOSIS: Left gluteal abscess. POSTOPERATIVE DIAGNOSIS: Left gluteal abscess. PROCEDURE PERFORMED: Excisional debridement and irrigation of left gluteal abscess. ANESTHESIA: General endotracheal. ESTIMATED BLOOD LOSS: 20 mL. FLUIDS GIVEN: 900 mL crystalloids. COUNTS: Sponge and instrument counts were verified as correct x2. COMPLICATIONS: None apparent at the time of operation. INDICATIONS FOR OPERATION: A 54-year-old, morbidly obese woman with history of type 2 diabetes mellitus and recurrent multiple left gluteal abscesses. She is status post excisional debridement of multiple left gluteal abscesses. She has developed another abscess in the left gluteal fold/proximal left thigh, which requires incision and drainage. The patient was brought to the operating room for that purpose. Findings are consistent with large, deep-seated, inferior left gluteal/proximal left thigh abscess. DESCRIPTION OF PROCEDURE: Informed consent was obtained from the patient, who was brought to the operating room and placed in supine position. Following general anesthesia, the patient was placed in a lateral recumbent position. The left gluteal/proximal thigh sterilely prepped and draped in usual fashion. A transverse incision was made over the dome of the perceived abscess. Abscess cavity was entered, large amount of purulent pus was evacuated. Necrotic subcutaneous tissues were sharply debrided using Metzenbaum scissors and passed off the operative field for transmission to Pathology. Large abscess cavity was copiously irrigated with saline and then packed with sterile saline saturated gauze. Sterile dressings were applied. The patient tolerated the operation without any apparent complication and was returned to recovery room in satisfactory condition. Job ID: [id number]
[2020-07-31] MEDS: HumaLOG 300 UNITS/3 ML VIAL SC PRN (21:41)
--- NOTE | 2020-08-01 00:53 | PRG ---
DATE OF SERVICE: 07/31/2020 SUBJECTIVE: The patient was seen this evening during rounds. She is postoperative day 0, status post debridement and irrigation of buttock abscess. Upon my evaluation, she was lying in bed on her left side, resting comfortably, and asleep with no signs of acute distress. Nursing reported no acute events. OBJECTIVE: VITAL SIGNS: Temperature 98.1, pulse 63, respirations 16, oxygen saturation 96% on room air, blood pressure 145/78. GENERAL: Elderly female, lying in bed, asleep, with no signs of acute distress. PULMONARY: Equal chest rise and fall. No signs of acute respiratory distress. ASSESSMENT: Postoperative day 0, status post debridement and irrigation of buttock abscess. PLAN: Continue current diet and pain regimen. Continue wound care. Medical management per primary team. Trauma surgery to re-evaluate the patient tomorrow. Job ID: [id number]
[2020-08-01] MEDS: HYDROcodone/Acetaminophen 10/325 mg Tablet PO PRN ×6 (02:07→23:20)
[2020-08-01 05:54] LABS: #Basophils 0.1 thou/uL (0.0-0.2); #Eosinphils 0.3 thou/uL (0.0-0.7); #Lymphocytes 3.9 thou/uL (1.20-3.40); #Monocytes 0.8 thou/uL (0.11-0.59); #Neutrophils 6.2 thou/uL (1.40-6.50); %Basophils 0.5 % (0.0-1.0); %Eosinophils 2.4 % (0.0-10.0); %Lymphocytes 34.5 % (21.0-51.0); %Monocytes 6.8 % (0.0-10.0); %Neutrophils 55.7 % (42.0-75.0); Hemoglobin 12.3 g/dL (12.0-16.0); Mean Corpuscular HGB CONC 31.4 g/dL (32.0-36.0); Mean Corpuscular Hemoglobin 29.4 pg (27.0-31.0); Mean Corpuscular Volume 93.7 fL (78.0-98.0); Mean Platelet Volume 8.6 fL (7.4-10.4); Platelet Count 358 thou/uL (130-400); RBC Distribution Width 12.6 % (11.5-14.5); Red Blood Cell (RBC) Count 4.18 mill/uL (4.20-5.40); White Blood Cell (WBC) Count 11.1 thou/uL (4.8-10.8)
[2020-08-01 06:12] LABS: Anion Gap 13 mmol/L (10-20); BUN (Urea Nitrogen) 7 mg/dL (9.8-20.1); Calc. Creatinine Clearance 195 mL/min (70-130); Calcium 8.4 mg/dL (7.8-10.44); Carbon Dioxide 28 mmol/L (22-29); Chloride 101 mmol/L (98-107); Estimated GFR-MDRD Greater than 90; Glucose 169 mg/dL (70-105); Potassium 3.5 mmol/L (3.5-5.1); Sodium 138 mmol/L (136-145)
[2020-08-01] MEDS: MEROPENEM 1 GM/50 ML 1 GM in Premix Bag 1 BAG IVPB SCH ×3 (06:24→21:52)
[2020-08-01] MEDS: Bupropion 150 MG SR TAB PO SCH ×2 (08:18→19:46)
[2020-08-01] MEDS: Lisinopril 5 MG TAB PO SCH ×2 (08:18→19:47)
[2020-08-01] MEDS: Famotidine 20 MG TAB PO SCH ×2 (08:18→19:46)
[2020-08-01] MEDS: Metoprolol Tartrate 100 MG TAB PO SCH ×2 (08:19→23:33)
[2020-08-01] MEDS: Amlodipine 10 MG TAB PO SCH (08:19)
[2020-08-01] MEDS: Senokot S 8.6-50 MG TAB PO SCH ×2 (08:19→19:46)
[2020-08-01] MEDS: Enoxaparin Sodium 40 MG/0.4 ML SYRINGE SC SCH (08:19)
[2020-08-01] MEDS ORDERED: Insulin Glargine 25 UNITS in Pre-Filled Syringe 1 EACH SC SCH (09:00)
[2020-08-01] MEDS: Morphine 2 MG/ML VIAL SLOW IVP PRN (09:51)
--- NOTE | 2020-08-01 13:34 | PDOC.HOSPP ---
- Subjective Encounter Date: 08/01/20 Encounter Time: 07:20 Subjective: Patient seen for follow-up regarding abscess. Had incision and drainage yesterday. Complains of local pain. - Objective Vital Signs & Weight: Vital Signs (12 hours) Temp Pulse Resp BP BP BP Pulse Ox 08/01/20 08:19 74 155/78 H 08/01/20 08:18 74 155/78 H 08/01/20 07:38 98.5 F 60 20 155/78 H 95 08/01/20 05:29 98.3 F 61 16 151/73 H 97 Weight Admit Weight 284 lb 0.32 oz Weight 284 lb 0.3 oz I&O: 07/31/20 08/01/20 08/02/20 06:59 06:59 06:59 Intake Total 1989 390 Balance 1989 390 Result Diagrams: 08/01/20 05:15 08/01/20 05:15 Additional Labs: Accuchecks 08/01/20 07/31/20 07/31/20 05:22 21:28 17:21 POC Glucose 157 H 237 H 171 H I reviewed patient's labs and MAR Hospitalist ROS - Review of Systems Cardiovascular: denies: chest pain, palpitations, orthopnea, paroxysmal noc. dyspnea, edema, light headedness Neurological: denies: weakness, numbness, incoordination, change in speech, confusion, seizures - Medication Medications: Active Medications Generic Name Dose Route Start Last Admin Trade Name Freq PRN Reason Stop Dose Admin Hydrocodone Bitart/Acetaminophen 1 tab 07/24/20 17:20 08/01/20 11:35 [place] 10/325 PO 1 tab Q4H PRN Administration Severe Pain (7-10) Hydrocodone Bitart/Acetaminophen 1 tab 07/24/20 17:20 07/30/20 12:23 [place] 5/325 PO 1 tab Q4H PRN Administration Moderate Pain (4-6) Amlodipine Besylate 10 mg 08/01/20 09:00 08/01/20 08:19 Amlodipine 10 Mg Tab PO 10 mg DAILY ESME Administration Bupropion HCl 150 mg 07/31/20 21:00 08/01/20 08:18 Bupropion 150 Mg Sr Tab PO 150 mg BID ESME Administration Enoxaparin Sodium 40 mg 07/25/20 09:00 08/01/20 08:19 Lovenox SC 40 mg 0900 ESME Administration Famotidine 20 mg 07/24/20 21:00 08/01/20 08:18 Pepcid PO 20 mg BID ESME Administration Meropenem 1 gm/ Device 50 mls @ 100 mls/hr 07/29/20 22:00 08/01/20 06:24 IVPB 50 mls Q8HR ESME Administration Insulin Glargine 25 units/ 0.25 mls @ 0 mls/hr 08/01/20 09:00 08/01/20 08:19 Miscellaneous Medication SC 0.25 mls QAM ESME Administration Insulin Human Lispro 0 units 07/25/20 19:00 07/31/20 21:41 Humalog 300 Units/3 Ml Vial SC 2 unit .MODERATE SLIDING SC PRN Administration MODERATE SLIDING SCALE Protocol Insulin Human Lispro 0 units 07/25/20 19:00 07/29/20 22:02 Humalog 300 Units/3 Ml Vial SC 3 unit .BEDTIME SLIDING SC PRN Administration BEDTIME SLIDING SCALE Protocol Lisinopril 5 mg 07/31/20 21:00 08/01/20 08:18 Lisinopril 5 Mg Tab PO 5 mg BID ESME Administration Metoprolol Tartrate 100 mg 07/25/20 21:00 08/01/20 08:19 Metoprolol Tartrate 100 Mg Tab PO 100 mg BID ESME Administration Morphine Sulfate 4 mg 07/26/20 10:03 08/01/20 09:51 Morphine 2 Mg/Ml Vial SLOW IVP 4 mg Q12H PRN Administration Pain Ondansetron HCl 4 mg 07/30/20 16:50 07/30/20 16:56 Ondansetron Pf 4 Mg/2 Ml Vial IVP 4 mg Q6H PRN Administration Nausea/Vomiting Senna/Docusate Sodium 1 tab 07/26/20 21:00 08/01/20 08:19 Senokot S 8.6-50 Mg Tab PO 1 tab BID ESME Administration Sodium Chloride 10 ml 07/25/20 21:00 08/01/20 08:20 Flush - Normal Saline 10 Ml Syringe IVF 10 ml Q12HR ESME Administration - Exam General - other findings: Morbidly obese Eye: anicteric sclera ENT: moist mucosa Neck: supple Heart: RRR Respiratory: CTAB Gastrointestinal: soft, non-tender Skin: normal turgor Psychiatric: normal affect, normal behavior Hosp A/P - Plan -Assessment (1) perianal abscess Code(s): K61.1 - RECTAL ABSCESS Status: Acute (2) Morbid obesity with BMI of 50.0-59.9, adult Code(s): E66.01 - MORBID (SEVERE) OBESITY DUE TO EXCESS CALORIES; Z68.43 - BODY MASS INDEX (BMI) 50.0-59.9, ADULT Status: Chronic (3) DM type 2 (diabetes mellitus, type 2) Status: Chronic Qualifiers: Diabetes mellitus skilled nursing insulin use: with termination clerk use Diabetes mellitus complication status: without complication Qualified Code(s): E11.9 - Type 2 diabetes mellitus without complications; Z79.4 - termination clerk (current) use of insulin; Z79.4 - termination clerk (current) use of insulin; Z79.4 - termination clerk (current) use of insulin; Z79.4 - nursing home (current) use of insulin (4) HTN (hypertension) Code(s): I10 - ESSENTIAL (PRIMARY) HYPERTENSION Status: Chronic Qualifiers: Hypertension type: essential hypertension Qualified Code(s): I10 - Essential (primary) hypertension - Plan * Abscess secondary to E coli and Enterococcus faecalis infection. Continue meropenem. * DM-blood sugar still high, increase Lantus to 27 units daily. * HTN-reasonably controlled * Ambulate patient.
[2020-08-01] MEDS: HumaLOG 300 UNITS/3 ML VIAL SC PRN ×2 (14:35→19:56)
--- NOTE | 2020-08-01 16:09 | PRG ---
DATE OF SERVICE: 08/01/2020 SUBJECTIVE: Ms. Sheppard had a second debridement by Dr. Mars on July 31 and the operative report was reviewed and the left gluteal area prepped. Transverse incision was made over the dome of the perceived abscess and abscess cavity was entered. A large amount of purulent exudate evacuated. Necrotic subcutaneous tissues were sharply debrided using Metzenbaum scissors and a large abscess cavity irrigated and packed. She is having pain during wound management. The Wound Care continues to monitor her progress and do the wound changes. No diarrhea. No respiratory symptoms. The patient is afebrile. BP 150/78, heart rate 74, and O2 saturations are 95, appears in no distress, oriented. Lungs are clear. S1 and S2, regular rate. Abdomen is soft, not distended or tender. The perineal area is improved with less areas of induration. There are two areas of packing that are noticeable. This is all localized to the left side and white cell count is down to 11.1, hemoglobin 12, platelets 258 and creatinine is 0.68. Microbiology with two anaerobes, E faecalis and E coli. E coli is broadly susceptible. E faecalis probably does not play a major role, so I would wait for a white cell count return from normal before making changes in the antimicrobial therapy. ASSESSMENT AND DISCUSSION: Obesity, hypertension, type 2 diabetes, gluteal region abscess on the left side, status post I and D x3 and this is a polymicrobial harshad process with necrosis, necrotizing features, and we will continue with meropenem, eventually transitioned to quinolone plus Flagyl for discharge planning whenever white cell count returns normal and the wound progress is adequate. Job ID: [id number]
[2020-08-02] MEDS: HYDROcodone/Acetaminophen 10/325 mg Tablet PO PRN ×5 (03:56→21:30)
[2020-08-02] MEDS: MEROPENEM 1 GM/50 ML 1 GM in Premix Bag 1 BAG IVPB SCH ×3 (05:58→21:32)
[2020-08-02 06:20] LABS: #Basophils 0.1 thou/uL (0.0-0.2); #Eosinphils 0.3 thou/uL (0.0-0.7); #Lymphocytes 3.5 thou/uL (1.20-3.40); #Monocytes 0.6 thou/uL (0.11-0.59); #Neutrophils 4.9 thou/uL (1.40-6.50); %Basophils 0.8 % (0.0-1.0); %Eosinophils 3.2 % (0.0-10.0); %Lymphocytes 37.6 % (21.0-51.0); %Monocytes 6.9 % (0.0-10.0); %Neutrophils 51.7 % (42.0-75.0); Hemoglobin 12.5 g/dL (12.0-16.0); Mean Corpuscular HGB CONC 32.3 g/dL (32.0-36.0); Mean Corpuscular Hemoglobin 30.2 pg (27.0-31.0); Mean Corpuscular Volume 93.5 fL (78.0-98.0); Mean Platelet Volume 8.1 fL (7.4-10.4); Platelet Count 386 thou/uL (130-400); RBC Distribution Width 12.8 % (11.5-14.5); Red Blood Cell (RBC) Count 4.15 mill/uL (4.20-5.40); White Blood Cell (WBC) Count 9.4 thou/uL (4.8-10.8)
[2020-08-02 06:40] LABS: Anion Gap 11 mmol/L (10-20); BUN (Urea Nitrogen) 9 mg/dL (9.8-20.1); Calc. Creatinine Clearance 195 mL/min (70-130); Calcium 8.5 mg/dL (7.8-10.44); Carbon Dioxide 31 mmol/L (22-29); Chloride 101 mmol/L (98-107); Estimated GFR-MDRD Greater than 90; Glucose 159 mg/dL (70-105); Potassium 3.6 mmol/L (3.5-5.1); Sodium 139 mmol/L (136-145)
[2020-08-02] MEDS: Bupropion 150 MG SR TAB PO SCH ×2 (08:25→20:12)
[2020-08-02] MEDS: Famotidine 20 MG TAB PO SCH ×2 (08:25→20:12)
[2020-08-02] MEDS: Amlodipine 10 MG TAB PO SCH (08:25)
[2020-08-02] MEDS: Senokot S 8.6-50 MG TAB PO SCH ×2 (08:26→20:12)
[2020-08-02] MEDS: Lisinopril 5 MG TAB PO SCH ×2 (08:26→20:12)
[2020-08-02] MEDS: Metoprolol Tartrate 100 MG TAB PO SCH ×2 (08:26→20:11)
[2020-08-02] MEDS: Enoxaparin Sodium 40 MG/0.4 ML SYRINGE SC SCH (08:28)
[2020-08-02] MEDS: PRE FILLED SC SCH (08:38)
[2020-08-02] MEDS: INSULIN GLARGINE SC SCH (08:38)
[2020-08-02] MEDS: Morphine 2 MG/ML VIAL SLOW IVP PRN (13:02)
[2020-08-02] MEDS: HumaLOG 300 UNITS/3 ML VIAL SC PRN ×3 (13:04→21:31)
--- NOTE | 2020-08-02 15:22 | PRG ---
DATE OF SERVICE: 08/02/2020 SUBJECTIVE: Ms. Sheppard is a morbidly obese 54-year-old woman with history of type 2 diabetes mellitus. The patient is status post incision and drainage of multiple perianal, gluteal, and proximal left thigh abscesses. She reports adequate pain control. She is tolerating diet well. She is having bowel movement and normal urinary output is recorded. OBJECTIVE: VITAL SIGNS: Today include blood pressure 128/74, pulse 62, respiratory rate is 20, temperature 98 degrees Fahrenheit. EXTREMITIES: Local wound dressing has been performed with wet-to-dry dressing twice daily. LABORATORY FINDINGS: Today include a CBC with 9400 white blood cells, hemoglobin and hematocrit 12.5 and 38.8 respectively. The platelet count is 386,000 and this is improved over yesterday with a white blood cell count of 11,100. Metabolic profile; sodium 139, potassium 3.6, chloride is 101, bicarb is 31, BUN 9, creatinine 0.68, glucose 210. IMPRESSIONS: Status post incision and drainage of multiple perianal, left gluteal and proximal left thigh abscesses. PLAN: 1. Continue local wound care. 2. The patient may be discharged to halfway facility at the discretion of the primary service. 3. The wound needs to be managed with saline saturated sterile gauze strips twice daily. Job ID: [id number]
--- NOTE | 2020-08-02 17:14 | PDOC.HOSPP ---
- Subjective Encounter Date: 08/02/20 Encounter Time: 15:00 Subjective: Patient seen for follow-up regarding perianal abscess. She denies fevers or chills. - Objective Vital Signs & Weight: Vital Signs (12 hours) Temp Pulse Resp BP BP Pulse Ox 08/02/20 16:00 98.6 F 65 20 149/62 H 97 08/02/20 13:00 98 F 62 128/74 08/02/20 08:26 60 08/02/20 08:25 60 163/70 H 08/02/20 07:53 98.0 F 60 20 163/70 H 95 Weight Admit Weight 284 lb 0.32 oz Weight 284 lb 0.3 oz I&O: 08/01/20 08/02/20 08/03/20 06:59 06:59 06:59 Intake Total 390 Balance 390 Result Diagrams: 08/02/20 06:05 08/02/20 06:05 Additional Labs: Accuchecks 08/02/20 08/02/20 08/01/20 16:54 12:01 19:49 POC Glucose 155 H 210 H 233 H 08/01/20 17:26 POC Glucose 210 H I reviewed patient's labs and MAR Hospitalist ROS - Medication Medications: Active Medications Generic Name Dose Route Start Last Admin Trade Name Freq PRN Reason Stop Dose Admin Hydrocodone Bitart/Acetaminophen 1 tab 07/24/20 17:20 08/02/20 13:03 [place] 10/325 PO 1 tab Q4H PRN Administration Severe Pain (7-10) Hydrocodone Bitart/Acetaminophen 1 tab 07/24/20 17:20 07/30/20 12:23 [place] 5/325 PO 1 tab Q4H PRN Administration Moderate Pain (4-6) Amlodipine Besylate 10 mg 08/01/20 09:00 08/02/20 08:25 Amlodipine 10 Mg Tab PO 10 mg DAILY ESME Administration Bupropion HCl 150 mg 07/31/20 21:00 08/02/20 08:25 Bupropion 150 Mg Sr Tab PO 150 mg BID ESME Administration Enoxaparin Sodium 40 mg 07/25/20 09:00 08/02/20 08:28 Lovenox SC 40 mg 0900 ESME Administration Famotidine 20 mg 07/24/20 21:00 08/02/20 08:25 Pepcid PO 20 mg BID ESME Administration Meropenem 1 gm/ Device 50 mls @ 100 mls/hr 07/29/20 22:00 08/02/20 13:02 IVPB 50 mls Q8HR ESME Administration Insulin Glargine 27 units/ 0.27 mls @ 0 mls/hr 08/02/20 09:00 08/02/20 08:38 Miscellaneous Medication SC 0.27 mls QAM ESEM Administration Insulin Human Lispro 0 units 07/25/20 19:00 08/02/20 13:04 Humalog 300 Units/3 Ml Vial SC 4 unit .MODERATE SLIDING SC PRN Administration MODERATE SLIDING SCALE Protocol Insulin Human Lispro 0 units 07/25/20 19:00 07/29/20 22:02 Humalog 300 Units/3 Ml Vial SC 3 unit .BEDTIME SLIDING SC PRN Administration BEDTIME SLIDING SCALE Protocol Lisinopril 5 mg 07/31/20 21:00 08/02/20 08:26 Lisinopril 5 Mg Tab PO 5 mg BID ESME Administration Metoprolol Tartrate 100 mg 07/25/20 21:00 08/02/20 08:26 Metoprolol Tartrate 100 Mg Tab PO 100 mg BID ESME Administration Morphine Sulfate 4 mg 07/26/20 10:03 08/02/20 13:02 Morphine 2 Mg/Ml Vial SLOW IVP 4 mg Q12H PRN Administration Pain Senna/Docusate Sodium 1 tab 07/26/20 21:00 08/02/20 08:26 Senokot S 8.6-50 Mg Tab PO 1 tab BID ESME Administration Sodium Chloride 10 ml 07/25/20 21:00 08/02/20 08:28 Flush - Normal Saline 10 Ml Syringe IVF 10 ml Q12HR ESME Administration Hosp A/P - Plan -Assessment (1) perianal abscess Code(s): K61.1 - RECTAL ABSCESS Status: Acute (2) Morbid obesity with BMI of 50.0-59.9, adult Code(s): E66.01 - MORBID (SEVERE) OBESITY DUE TO EXCESS CALORIES; Z68.43 - BODY MASS INDEX (BMI) 50.0-59.9, ADULT Status: Chronic (3) DM type 2 (diabetes mellitus, type 2) Status: Chronic Qualifiers: Diabetes mellitus gyroscope technician insulin use: with gyroscope technician use Diabetes mellitus complication status: without complication Qualified Code(s): E11.9 - Type 2 diabetes mellitus without complications; Z79.4 - executive coach (current) use of insulin; Z79.4 - executive coach (current) use of insulin; Z79.4 - custodial (current) use of insulin; Z79.4 - executive coach (current) use of insulin (4) HTN (hypertension) Code(s): I10 - ESSENTIAL (PRIMARY) HYPERTENSION Status: Chronic Qualifiers: Hypertension type: essential hypertension Qualified Code(s): I10 - Essential (primary) hypertension - Plan * Abscess secondary to E coli and Enterococcus faecalis infection. Continue meropenem. * DM-blood sugar still high, increase Lantus to 27 units daily. * HTN-reasonably controlled * Ambulate patient.
[2020-08-02] MEDS ORDERED: Lidocaine 4% Topical Sol 50 ML BOT TOP PRN (17:52)
[2020-08-03 05:27] LABS: #Basophils 0.1 thou/uL (0.0-0.2); #Eosinphils 0.4 thou/uL (0.0-0.7); #Lymphocytes 3.1 thou/uL (1.20-3.40); #Monocytes 0.7 thou/uL (0.11-0.59); #Neutrophils 4.4 thou/uL (1.40-6.50); %Basophils 1.1 % (0.0-1.0); %Eosinophils 4.3 % (0.0-10.0); %Lymphocytes 35.5 % (21.0-51.0); %Monocytes 7.6 % (0.0-10.0); %Neutrophils 51.5 % (42.0-75.0); Hemoglobin 13.1 g/dL (12.0-16.0); Mean Corpuscular HGB CONC 33.1 g/dL (32.0-36.0); Mean Corpuscular Hemoglobin 31.1 pg (27.0-31.0); Mean Corpuscular Volume 93.8 fL (78.0-98.0); Mean Platelet Volume 8.2 fL (7.4-10.4); Platelet Count 401 thou/uL (130-400); RBC Distribution Width 12.8 % (11.5-14.5); Red Blood Cell (RBC) Count 4.22 mill/uL (4.20-5.40); White Blood Cell (WBC) Count 8.6 thou/uL (4.8-10.8)
[2020-08-03 05:49] LABS: Anion Gap 12 mmol/L (10-20); BUN (Urea Nitrogen) 12 mg/dL (9.8-20.1); Calc. Creatinine Clearance 174 mL/min (70-130); Calcium 8.4 mg/dL (7.8-10.44); Carbon Dioxide 31 mmol/L (22-29); Chloride 101 mmol/L (98-107); Estimated GFR-MDRD 80; Glucose 259 mg/dL (70-105); Potassium 3.8 mmol/L (3.5-5.1); Sodium 140 mmol/L (136-145)
[2020-08-03] MEDS: HumaLOG 300 UNITS/3 ML VIAL SC PRN ×2 (06:21→16:59)
[2020-08-03] MEDS: MEROPENEM 1 GM/50 ML 1 GM in Premix Bag 1 BAG IVPB SCH ×2 (06:21→13:29)
[2020-08-03] MEDS: Lisinopril 5 MG TAB PO SCH ×2 (08:27→19:53)
[2020-08-03] MEDS: HYDROcodone/Acetaminophen 10/325 mg Tablet PO PRN ×3 (08:28→17:02)
[2020-08-03] MEDS: Amlodipine 10 MG TAB PO SCH (08:28)
[2020-08-03] MEDS: Metoprolol Tartrate 100 MG TAB PO SCH ×2 (08:28→19:53)
[2020-08-03] MEDS: Famotidine 20 MG TAB PO SCH ×2 (08:29→19:53)
[2020-08-03] MEDS: INSULIN GLARGINE SC SCH (08:30)
[2020-08-03] MEDS: Bupropion 150 MG SR TAB PO SCH ×2 (08:30→19:53)
[2020-08-03] MEDS: Enoxaparin Sodium 40 MG/0.4 ML SYRINGE SC SCH (08:30)
[2020-08-03] MEDS: PRE FILLED SC SCH (08:30)
[2020-08-03] MEDS: Senokot S 8.6-50 MG TAB PO SCH ×2 (08:31→19:53)
[2020-08-03] MEDS ORDERED: Escitalopram Oxalate 10 mg Tablet PO SCH (09:00)
[2020-08-03] MEDS: Morphine 2 MG/ML VIAL SLOW IVP PRN (09:54)
[2020-08-03 11:49] VITALS: TEMP 98.3
[2020-08-03] MEDS ORDERED: traMADol HCl 50 MG TAB PO PRN (14:03)
--- NOTE | 2020-08-03 16:09 | SPC ---
Ultrasound and Fluoroscopic guided left upper extremity PICC placement HISTORY: Infection. Patient needs long-term IV antibiotics FINDINGS: Informed consent obtained prior to the procedure. An appropriate access site was determined with ultrasound guidance. The area was then meticulously pr epped and draped in usual sterile fashion. Skin overlying the left basilic vein anesthetized with 1% buffered lidocaine. Utilizing direct sonogr aphic guidance, vascular access is obtained via the left basilic vein, and an 0.018in guidewire was advanced to the cavoatrial junction. Intravascular length is calculated at 40.5 cm, and the PICC is c ut accordingly. Needle is removed and replaced with a peel-away sheath. The PICC was advanced over the wire. Wire and peel-away sheath were removed. The tip of the catheter overlies the cavoatrial junction. The catheter was accessed and aspirated/flushed easily. Exposure data: 0 minutes of fluoroscopic time 159 mGy centimeter squared FINDINGS: Technically successful placement of a 40.5 centimeter single lumen 5 [place] left upper extremity PICC line. IMPRESSION: Successful ultrasound guided placement of a left upper extremity PICC.
[2020-08-03 19:54] VITALS: BP 180/78
--- NOTE | 2020-08-04 03:07 | DIS ---
DATE OF ADMISSION: 07/25/2020 DATE OF DISCHARGE: 08/03/2020 PRIMARY CARE PROVIDER: Treva He MD DISCHARGE DIAGNOSES: 1. Perianal abscess. 2. Left gluteal abscess. 3. Hypokalemia. 4. COVID-19 test negative. CONDITION OF PATIENT ON THE DAY OF DISCHARGE: Stable. I assessed Ms. Sheppard on the day of discharge. She denies any chest pain or shortness of breath. Vital signs are stable. S1 and S2 are heard, regular. Lungs are clear to auscultation bilaterally. CONSULTATIONS DURING THIS HOSPITALIZATION: Infectious Diseases, Dr. Samaniego and General Surgery, Dr. Mars. HOSPITAL COURSE: Ms. Sheppard is a pleasant 54-year-old lady, who was admitted to [facility] on July 24, 2020, for left gluteal and perianal abscess. Please refer to Dr. Caballero's history and physical note dated July 24, 2020, for further details. She was started on intravenous antibiotics. On July 25, she underwent incision and drainage and excisional debridement of recurrent left gluteal/perianal abscesses. She was also seen by Infectious Disease Service. Initial plan was to switch her to levofloxacin and Augmentin. However, she did not tolerate Augmentin well. She was started on meropenem. She had left gluteal soft tissue ultrasound on July 30, which showed extensive edema involving the soft tissues. She was seen by General Surgery Service again and on July 31, she underwent excisional debridement and irrigation of left gluteal abscess. She continued to improve clinically. Buttock tissue cultures from July 25 grew Escherichia coli that was pansensitive and Enterococcus faecalis that was resistant to erythromycin and gentamicin, sensitive to linezolid, imipenem, penicillin, Zosyn, streptomycin high-level, and vancomycin. Infectious Disease Service recommended that she be continued on intravenous meropenem for 7 to 10 more days. PICC line was placed and she is being discharged [facility] for further management. She was also seen by [facility] for possible depression. They provided her with resources in the community and safety plan. She will need weekly CBC, chem-7, and C-reactive protein checked. DISCHARGE MEDICATIONS: 1. Metoprolol 100 mg 2 times a day. 2. Wellbutrin 150 mg 2 times a day. 3. Meropenem 1 g every 8 hours for 10 days. 4. Lantus insulin 27 units in the morning. 5. Lexapro 10 mg daily. 6. Amlodipine 10 mg daily. 7. Vasotec 5 mg 2 times a day. 8. Acetaminophen 650 mg every 4 hours as needed. 9. Tramadol 50 mg every 6 hours as needed. 10. Lidocaine 4% topical solution as needed for wound dressing. DIET: Diabetic diet. ACTIVITY: As tolerated. POST ACUTE CARE FOLLOWUP: With primary care provider in 1 week. TIME SPENT: Total amount of time spent coordinating this discharge: Thirty-two minutes. DISCHARGE DESTINATION: [facility]. Job ID: [id number]
--- NOTE | 2020-08-05 12:46 | EKG ---
Test Reason : Blood Pressure : / mmHG Vent. Rate : 066 BPM Atrial Rate : 066 BPM P-R Int : 122 ms QRS Dur : 098 ms QT Int : 410 ms P-R-T Axes : 038 004 020 degrees QTc Int : 429 ms Normal sinus rhythm Normal ECG No previous ECGs available Confirmed by FILIBERTO PEREZ MD ([id number] on 08/05/2020 12:46:35 PM Referred By: LISHA Confirmed By:FILIBERTO PEREZ MD
== END 2020-08-03 20:10 | DRG 264 ==
LOC: ERS 11:37 → T4-A 15:31 → OBSVTOIN 07-25 16:22
PROVIDERS: ADMIT Internal Medicine; ATTEND Internal Medicine
PROC: 0JB90ZZ Excision of Buttock Subcutaneous Tissue and Fascia, Open Approach (ICD-10-PCS; principal; 2020-07-25)
PROC: 0JB90ZZ Excision of Buttock Subcutaneous Tissue and Fascia, Open Approach (ICD-10-PCS; 2020-07-31)
PROC: 02HV33Z Insertion of Infusion Device into Superior Vena Cava, Percutaneous Approach (ICD-10-PCS; 2020-08-03)
PROC: B518ZZA Fluoroscopy of Superior Vena Cava, Guidance (ICD-10-PCS; 2020-08-03)
PROC: B548ZZA Ultrasonography of Superior Vena Cava, Guidance (ICD-10-PCS; 2020-08-03)
DX: E11.52 Type 2 diabetes mellitus with diabetic peripheral angiopathy with gangrene (principal); I96 Gangrene, not elsewhere classified; K61.0 Anal abscess; L02.31 Cutaneous abscess of buttock; Z16.29 Resistance to other single specified antibiotic; Z68.43 Body mass index [BMI] 50.0-59.9, adult; L02.416 Cutaneous abscess of left lower limb; Z20.828 Contact with and (suspected) exposure to other viral communicable diseases; E87.6 Hypokalemia; B96.20 Unspecified Escherichia coli [E. coli] as the cause of diseases classified elsewhere; B95.2 Enterococcus as the cause of diseases classified elsewhere; F17.210 Nicotine dependence, cigarettes, uncomplicated; I10 Essential (primary) hypertension; E78.5 Hyperlipidemia, unspecified; E66.01 Morbid (severe) obesity due to excess calories; K59.00 Constipation, unspecified; E11.65 Type 2 diabetes mellitus with hyperglycemia; Z88.1 Allergy status to other antibiotic agents; Z88.0 Allergy status to penicillin; Z79.899 Other long term (current) drug therapy; Z79.4 Long term (current) use of insulin
CPT/HCPCS: 36415; 36416; 36569; 72193; 76999; 80048; 80053; 80202; 83605; 84484; 85025; 87040; 87070; 87076; 87077; 87186; 87205; 87635; 88304; 93005; 93010; 96361; 96365; 96372; 96374; 96375; 96376; C1751; G0378; J1200; J1644; J1650; J1815; J1956; J2185; J2270; J2405; J2704; J3010; J3370; J3480; J3490; J7030; J7050; Q0162; Q9967; S0020; S0028; U0003

== ENCOUNTER 2023-11-10 16:08 | Outpatient (CLI) | payer OTHER | END 2023-11-10 16:09 | disposition home or self-care (01) | LOC: SCSRAD 16:08 | PROVIDERS: ATTEND Nurse Practitioner Family | DX: S69.91XA Unspecified injury of right wrist, hand and finger(s), initial encounter (principal); M19.041 Primary osteoarthritis, right hand ==

== ENCOUNTER 2024-10-02 15:31 | Inpatient (IN) | payer OTHER ==
[~2024-10-02 15:31] MED LIST changes: -ISOVUE-370 76%-LOCM 1 ML ONE; +Iopamidol-370 76% 500 ML MDV (1 ML CHARGE) ONE
[2024-10-02] MEDS ORDERED: Ondansetron PF 4 MG/2 ML Vial ONE (16:18)
[2024-10-02 17:00] LABS: Bacteria/HPF None Seen HPF (None Seen); Bilirubin Negative (Negative); Blood, Urine Negative (Negative); CAUTI Indications for Culture Pelvic or flank pain; Clarity Clear (Clear); Glucose, Urine (Dipstick) Normal (Negative); Ketone, Urine Negative (Negative); Leukocyte 25 Leu/uL (Negative); Nitrite Negative (Negative); Protein, Urine (Dipstick) 10 mg/dL (Neg-Trace); RBC/HPF 0-3 HPF (0-3); Specific Gravity, Urine 1.015 (1.002-1.036); Urobilinogen Normal mg/dL (Less than 2); WBC/HPF 0-3 HPF (0-3)
[2024-10-02 17:01] LABS: Urine Culture Reflex No No
[2024-10-02 17:21] LABS: #Basophils 0.06 10x3/uL (0.0-0.2); %Basophils 0.6 % (0.0-1.0); %Eosinophils 1.3 % (0.0-10.0); %Lymphocytes 15.7 % (21.0-51.0); %Monocytes 5.9 % (0.0-10.0); %Neutrophils 75.8 % (42.0-75.0); Hematocrit 39.3 % (36.0-47.0); Mean Corpuscular HGB CONC 33.1 g/dL (32.0-36.0); Mean Corpuscular Hemoglobin 31.3 pg (27.0-31.0); Mean Corpuscular Volume 94.7 fL (78.0-98.0); Mean Platelet Volume 11.6 fL (7.4-10.4); Platelet Count 254 10x3/uL (130-400); RBC Distribution Width 13.4 % (11.5-14.5); Red Blood Cell (RBC) Count 4.15 mill/uL (4.20-5.40)
[2024-10-02 17:38] LABS: ALT (SGPT) 13 U/L (8-55); AST (SGOT) 14 U/L (5-34); Albumin 3.4 g/dL (3.5-5.0); Alkaline Phosphatase 73 U/L (40-110); Anion Gap 14 mmol/L (10-20); BUN (Urea Nitrogen) 34 mg/dL (9.8-20.1); Bilirubin, Total 0.7 mg/dL (0.2-1.2); Calc. Creatinine Clearance 0 mL/min (70-130); Calcium 9.5 mg/dL (7.8-10.44); Carbon Dioxide 26 mmol/L (22-29); Chloride 104 mmol/L (98-107); Estimated GFR 33; Globulin 2.7 g/dL (2.4-3.5); Glucose 105 mg/dL (70-105); Potassium 4.2 mmol/L (3.5-5.1); Protein, Total 6.1 g/dL (6.0-8.3); Sodium 140 mmol/L (136-145)
[2024-10-02] MEDS ORDERED: levETIRAcetam 500 MG (5 mL) VIAL ONE (18:04)
[2024-10-02 18:46] LABS: Acetaminophen Less than 10 mcg/mL (Less than 10); Alcohol Less than 10.0 mg/dL (Less than 10); Salicylate Less than 8.0 mg/dL (Less than 8.0)
[2024-10-02 19:23] LABS: Amphetamine Not Detected (NotDetected); Barbiturates Screen Not Detected (NotDetected); Benzodiazepine Screen Detected (NotDetected); Cocaine Metabolite Screen Not Detected (NotDetected); Methadone Not Detected (NotDetected); Methamphetamine Not Detected (NotDetected); Opiate Screen Not Detected (NotDetected); Oxycodone Screen Not Detected (NotDetected); Phencyclidine (PCP) Not Detected (NotDetected); THC/Cannabinoid Screen Not Detected (NotDetected); Tricyclic Screen Not Detected (NotDetected)
[2024-10-02] MEDS ORDERED: Ondansetron PF 4 MG/2 ML Vial IVP PRN (19:54)
[2024-10-02] MEDS ORDERED: Acetaminophen 325 MG TAB PO PRN (19:54)
[2024-10-02] MEDS ORDERED: Lorazepam 2 MG/ML VIAL SLOW IVP PRN (19:54)
[2024-10-02] MEDS ORDERED: Insulin Lispro 100 UNIT/ML 10 ML VIAL SC PRN (20:04)
[2024-10-02] MEDS ORDERED: Glucagon 1 MG/ML KIT IM PRN (20:04)
[2024-10-02] MEDS ORDERED: Dextrose 50% Abboject 50 ML SYRINGE SLOW IVP PRN (20:04)
[2024-10-02] MEDS ORDERED: Dextrose 5% in Water 1,000 ML IV PRN (20:04)
[2024-10-02 21:09] VITALS: BMI 42.4
[2024-10-02] MEDS: Sodium Chloride 0.9% 1,000 ML IV SCH (21:19)
[2024-10-02 21:28] LABS: Lactic Acid 1.18 mmol/L (0.5-2.2)
[2024-10-02 21:38] LABS: Troponin I 0.087 ng/mL (< 0.028)
[2024-10-03 00:05] LABS: Troponin I 0.081 ng/mL (< 0.028)
[2024-10-03 03:52] LABS: #Basophils 0.07 10x3/uL (0.0-0.2); %Basophils 0.6 % (0.0-1.0); %Eosinophils 1.9 % (0.0-10.0); %Lymphocytes 37.1 % (21.0-51.0); %Monocytes 7.4 % (0.0-10.0); %Neutrophils 52.4 % (42.0-75.0); Hematocrit 36.7 % (36.0-47.0); Hemoglobin 12.1 g/dL (12.0-16.0); Mean Corpuscular Hemoglobin 31.5 pg (27.0-31.0); Mean Corpuscular Volume 95.6 fL (78.0-98.0); Mean Platelet Volume 11.4 fL (7.4-10.4); Platelet Count 238 10x3/uL (130-400); RBC Distribution Width 13.4 % (11.5-14.5); Red Blood Cell (RBC) Count 3.84 mill/uL (4.20-5.40)
[2024-10-03 04:08] LABS: Anion Gap 11 mmol/L (10-20); BUN (Urea Nitrogen) 28 mg/dL (9.8-20.1); Calc. Creatinine Clearance 68 mL/min (70-130); Calcium 8.8 mg/dL (7.8-10.44); Carbon Dioxide 26 mmol/L (22-29); Chloride 107 mmol/L (98-107); Estimated GFR 37; Glucose 72 mg/dL (70-105); Potassium 3.7 mmol/L (3.5-5.1); Sodium 140 mmol/L (136-145)
[2024-10-03 12:56] VITALS: BMI 42.4
[2024-10-03] MEDS ORDERED: ALPRAZolam 0.5 MG TAB PO PRN (15:33)
[2024-10-03] MEDS: HYDROcodone/Acetaminophen 5/325 mg Tablet PO PRN (16:30)
[2024-10-03] MEDS: Gabapentin 300 MG CAP PO SCH (20:34)
[2024-10-03] MEDS: Atorvastatin Calcium 40 MG TAB PO SCH (20:34)
[2024-10-04] MEDS: Aspirin 81 mg Enteric Coated Tablet PO SCH (08:51)
[2024-10-04] MEDS: Clopidogrel Bisulfate 75 MG TAB PO SCH (11:09)
[2024-10-04] MEDS: Hydrochlorothiazide 25 MG TAB PO SCH (11:09)
[2024-10-04] MEDS: Bupropion 150 MG SR.TAB PO SCH (11:09)
[2024-10-04] MEDS: Metoprolol Tartrate 100 MG TAB PO SCH ×2 (11:10→11:11)
[2024-10-04] MEDS ORDERED: diphenhydrAMINE 25 MG CAP PO SCH (12:30)
[2024-10-04 13:32] VITALS: BP 120/73; TEMP 97.9
[2024-10-04] MEDS ORDERED: levETIRAcetam 500 MG TAB PO SCH (21:00)
[2024-10-04] MEDS ORDERED: Metoprolol Tartrate 100 MG TAB PO SCH (21:00)
[2024-10-05] MEDS ORDERED: Amlodipine 10 MG TAB PO SCH (09:00)
== END 2024-10-04 13:39 | disposition home or self-care (01) | DRG 638 ==
LOC: ERS 15:31 → 2NO 19:58 → 2SE 22:35 → OBSVTOIN 10-03 09:39
PROVIDERS: ADMIT Hospitalist; ATTEND Internal Medicine
PROC: XX20X89 Monitoring of Brain Electrical Activity, Computer-aided Detection and Notification, New Technology Group 9 (ICD-10-PCS; principal; 2024-10-02)
DX: E11.649 Type 2 diabetes mellitus with hypoglycemia without coma (principal); E87.20 Acidosis, unspecified; I5A Non-ischemic myocardial injury (non-traumatic); I69.354 Hemiplegia and hemiparesis following cerebral infarction affecting left non-dominant side; Z68.41 Body mass index [BMI] 40.0-44.9, adult; R55 Syncope and collapse; I10 Essential (primary) hypertension; E66.9 Obesity, unspecified; E78.5 Hyperlipidemia, unspecified; G40.309 Generalized idiopathic epilepsy and epileptic syndromes, not intractable, without status epilepticus; F10.90 Alcohol use, unspecified, uncomplicated; Z88.0 Allergy status to penicillin; Z88.2 Allergy status to sulfonamides; Z88.8 Allergy status to other drugs, medicaments and biological substances
CPT/HCPCS: 36415; 36416; 51701; 70496; 70498; 70553; 71045; 80048; 80053; 80306; 80307; 81001; 82550; 83605; 83880; 84146; 84484; 85025; 93005; 93306; 94760; 96361; 96374; 96375; G0378; J1953; J2405; J7030; Q9967

== ENCOUNTER 2024-10-07 16:46 | Emergency (ER) | payer OTHER ==
[2024-10-07] MEDS ORDERED: Ketorolac Tromethamine 30 MG (1 mL) VIAL ONE (17:04)
[2024-10-07] MEDS ORDERED: Ondansetron PF 4 MG/2 ML Vial ONE (17:04)
[2024-10-07] MEDS ORDERED: Pantoprazole 40 MG VIAL ONE (17:04)
[2024-10-07 17:19] LABS: #Basophils 0.07 10x3/uL (0.0-0.2); %Basophils 0.4 % (0.0-1.0); %Eosinophils 0.3 % (0.0-10.0); %Lymphocytes 4.9 % (21.0-51.0); %Monocytes 4.8 % (0.0-10.0); %Neutrophils 88.6 % (42.0-75.0); Hematocrit 40.2 % (36.0-47.0); Hemoglobin 13.4 g/dL (12.0-16.0); Mean Corpuscular HGB CONC 33.3 g/dL (32.0-36.0); Mean Corpuscular Hemoglobin 31.2 pg (27.0-31.0); Mean Corpuscular Volume 93.5 fL (78.0-98.0); Mean Platelet Volume 11.6 fL (7.4-10.4); Platelet Count 240 10x3/uL (130-400); RBC Distribution Width 13.2 % (11.5-14.5)
[2024-10-07 17:41] LABS: ALT (SGPT) 22 U/L (8-55); AST (SGOT) 29 U/L (5-34); Albumin 3.3 g/dL (3.5-5.0); Alkaline Phosphatase 95 U/L (40-110); Anion Gap 15 mmol/L (10-20); BUN (Urea Nitrogen) 25 mg/dL (9.8-20.1); Bilirubin, Total 1.2 mg/dL (0.2-1.2); Calc. Creatinine Clearance 0 mL/min (70-130); Carbon Dioxide 23 mmol/L (22-29); Chloride 104 mmol/L (98-107); Estimated GFR 44; Globulin 3.3 g/dL (2.4-3.5); Glucose 179 mg/dL (70-105); Lipase 24 U/L (8-78); Potassium 3.4 mmol/L (3.5-5.1); Protein, Total 6.6 g/dL (6.0-8.3); Sodium 139 mmol/L (136-145)
[2024-10-07 21:30] LABS: Bacteria/HPF None Seen HPF (None Seen); Bilirubin Negative (Negative); Blood, Urine Negative (Negative); CAUTI Indications for Culture Fever or rigors; Clarity Clear (Clear); Glucose, Urine (Dipstick) Normal (Negative); Ketone, Urine Negative (Negative); Leukocyte 75 Leu/uL (Negative); Nitrite Negative (Negative); Protein, Urine (Dipstick) Negative (Neg-Trace); RBC/HPF 0-3 HPF (0-3); Specific Gravity, Urine 1.015 (1.002-1.036); Urobilinogen Normal mg/dL (Less than 2)
[2024-10-07 21:32] LABS: Urine Culture Reflex No No
== END 2024-10-07 21:52 | disposition home or self-care (01) ==
LOC: ERS 16:46
DX: R11.2 Nausea with vomiting, unspecified (principal); E11.9 Type 2 diabetes mellitus without complications; I10 Essential (primary) hypertension; F17.210 Nicotine dependence, cigarettes, uncomplicated
CPT/HCPCS: 36415; 36416; 80053; 81001; 83690; 85025; 93005; 96374; 96375; J1885; J2405; J2470

== ENCOUNTER 2024-10-09 21:29 | Inpatient (IN) | payer OTHER ==
[2024-10-09 22:32] LABS: #Basophils 0.03 10x3/uL (0.0-0.2); #Eosinophils Less than 0.03 10x3/uL (0.0-0.7); %Basophils 0.3 % (0.0-1.0); %Lymphocytes 3.3 % (21.0-51.0); %Monocytes 5.1 % (0.0-10.0); %Neutrophils 90.5 % (42.0-75.0); Hematocrit 38.3 % (36.0-47.0); Hemoglobin 13.3 g/dL (12.0-16.0); Mean Corpuscular HGB CONC 34.7 g/dL (32.0-36.0); Mean Corpuscular Hemoglobin 31.6 pg (27.0-31.0); Mean Platelet Volume 11.6 fL (7.4-10.4); Platelet Count 195 10x3/uL (130-400); RBC Distribution Width 13.1 % (11.5-14.5); Red Blood Cell (RBC) Count 4.21 mill/uL (4.20-5.40)
[2024-10-09] MEDS ORDERED: fentaNYL 50 mcg/mL 1 mL Vial ONE (22:53)
[2024-10-09] MEDS ORDERED: Ondansetron PF 4 MG/2 ML Vial ONE (22:53)
[2024-10-09 22:58] LABS: ALT (SGPT) 28 U/L (8-55); AST (SGOT) 28 U/L (5-34); Albumin 2.9 g/dL (3.5-5.0); Alkaline Phosphatase 88 U/L (40-110); Anion Gap 17 mmol/L (10-20); BUN (Urea Nitrogen) 17 mg/dL (9.8-20.1); Bilirubin, Total 1.5 mg/dL (0.2-1.2); Calc. Creatinine Clearance 0 mL/min (70-130); Carbon Dioxide 23 mmol/L (22-29); Chloride 97 mmol/L (98-107); Estimated GFR 61; Globulin 3.7 g/dL (2.4-3.5); Glucose 164 mg/dL (70-105); Lipase 10 U/L (8-78); Potassium 2.9 mmol/L (3.5-5.1); Protein, Total 6.6 g/dL (6.0-8.3); Sodium 134 mmol/L (136-145)
[2024-10-10 00:35] LABS: Acetaminophen Less than 10 mcg/mL (Less than 10); Alcohol Less than 10.0 mg/dL (Less than 10); Salicylate Less than 8.0 mg/dL (Less than 8.0)
[2024-10-10 00:41] LABS: Troponin I 0.086 ng/mL (< 0.028)
[2024-10-10] MEDS ORDERED: LevoFLOXacin 750 mg/D5W 150 ml Premix Bag ONE (01:09)
[2024-10-10 01:10] LABS: Magnesium 1.5 mg/dL (1.6-2.6)
[2024-10-10] MEDS ORDERED: Guaifenesin DM 100-10/5 ML UDCUP PO PRN (01:32)
[2024-10-10] MEDS ORDERED: Dextrose 5% in Water 1,000 ML IV PRN (01:32)
[2024-10-10] MEDS ORDERED: Ipratropium/Albuterol 3 ML NEB NEB PRN (01:32)
[2024-10-10] MEDS ORDERED: Insulin Lispro 100 UNIT/ML 10 ML VIAL SC PRN (01:32)
[2024-10-10] MEDS ORDERED: Glucagon 1 MG/ML KIT IM PRN (01:32)
[2024-10-10] MEDS ORDERED: Dextrose 50% Abboject 50 ML SYRINGE SLOW IVP PRN (01:32)
[2024-10-10] MEDS ORDERED: Magnesium 2 GM/50 ML BAG (IN WATER) ONE (02:51)
[2024-10-10] MEDS ORDERED: Potassium Chloride 20 MEQ (100 mL) BAG ONE ×2 (03:09→10:34)
[2024-10-10] MEDS: Magnesium 2 GM/50 ML(in water) 2 GM in Premix 1 BAG IVPB SCH (03:18)
[2024-10-10] MEDS ORDERED: Ondansetron PF 4 MG/2 ML Vial ONE ×2 (03:23→10:10)
[2024-10-10] MEDS ORDERED: Pantoprazole 40 MG VIAL ONE ×2 (03:24→10:05)
[2024-10-10] MEDS: Pantoprazole 40 MG VIAL IVP SCH ×2 (03:28→10:14)
[2024-10-10] MEDS: Ondansetron PF 4 MG/2 ML Vial IVP PRN (03:29)
[2024-10-10] MEDS: Sodium Chloride 0.9% 1,000 ML IV SCH (03:29)
[2024-10-10 03:31] LABS: Bacteria/HPF None Seen HPF (None Seen); Bilirubin Negative (Negative); Blood, Urine 1+ (Negative); CAUTI Indications for Culture Alt mental st,lethar; Clarity Clear (Clear); Glucose, Urine (Dipstick) 50 mg/dL (Negative); Ketone, Urine Trace mg/dL (Negative); Leukocyte Negative Leu/uL (Negative); Nitrite Negative (Negative); Protein, Urine (Dipstick) 30 mg/dL (Neg-Trace); RBC/HPF None Seen HPF (0-3); Specific Gravity, Urine 1.041 (1.002-1.036); Squamous Epithelial 0-3 HPF (0-3); Urobilinogen Normal mg/dL (Less than 2); WBC/HPF 0-3 HPF (0-3); pH, Urine 6.5 (5.0-9.0)
[2024-10-10 03:32] LABS: Urine Culture Reflex No No
[2024-10-10 03:35] LABS: Amphetamine Not Detected (NotDetected); Barbiturates Screen Not Detected (NotDetected); Benzodiazepine Screen Not Detected (NotDetected); Cocaine Metabolite Screen Not Detected (NotDetected); Methadone Not Detected (NotDetected); Methamphetamine Not Detected (NotDetected); Opiate Screen Not Detected (NotDetected); Oxycodone Screen Not Detected (NotDetected); Phencyclidine (PCP) Not Detected (NotDetected); THC/Cannabinoid Screen Not Detected (NotDetected); Tricyclic Screen Not Detected (NotDetected)
[2024-10-10 04:03] LABS: #Basophils 0.03 10x3/uL (0.0-0.2); #Eosinophils Less than 0.03 10x3/uL (0.0-0.7); %Basophils 0.3 % (0.0-1.0); %Lymphocytes 6.9 % (21.0-51.0); %Monocytes 6.1 % (0.0-10.0); %Neutrophils 86.2 % (42.0-75.0); Hematocrit 41.6 % (36.0-47.0); Hemoglobin 14.2 g/dL (12.0-16.0); Mean Corpuscular HGB CONC 34.1 g/dL (32.0-36.0); Mean Corpuscular Hemoglobin 30.5 pg (27.0-31.0); Mean Corpuscular Volume 89.3 fL (78.0-98.0); Mean Platelet Volume 11.6 fL (7.4-10.4); Platelet Count 192 10x3/uL (130-400); Red Blood Cell (RBC) Count 4.66 mill/uL (4.20-5.40)
[2024-10-10 04:20] LABS: Anion Gap 14 mmol/L (10-20); BUN (Urea Nitrogen) 17 mg/dL (9.8-20.1); Calc. Creatinine Clearance 0 mL/min (70-130); Calcium 9.3 mg/dL (7.8-10.44); Carbon Dioxide 26 mmol/L (22-29); Chloride 95 mmol/L (98-107); Estimated GFR 49; Glucose 144 mg/dL (70-105); Magnesium 2.3 mg/dL (1.6-2.6); Potassium 3.2 mmol/L (3.5-5.1); Sodium 132 mmol/L (136-145)
[2024-10-10 07:47] VITALS: BMI 39.1
[2024-10-10] MEDS ORDERED: VANCOMYCIN IVPB PRN (10:42)
[2024-10-10] MEDS: Potassium Chloride 20 MEQ in Premix 1 BAG IVPB SCH (10:48)
[2024-10-10] MEDS ORDERED: VANCOMYCIN IVPB SCH (11:45)
[2024-10-10] MEDS ORDERED: SODIUM CHLORIDE 0.9% IVPB SCH (11:45)
[2024-10-10] MEDS ORDERED: VANCOMYCIN HCL IVPB SCH (11:45)
[2024-10-10] MEDS: Vancomycin (BATCH) 2.5 GM in Premix 1 BAG IVPB SCH ×2 (12:37→13:06)
[2024-10-10] MEDS: Lactated Ringer's 1,000 ML IV SCH (13:06)
[2024-10-10] MEDS: Ondansetron ODT 4 MG TAB PO PRN (15:38)
[2024-10-10 16:38] LABS: Legionella Urinary Ag Negative (Negative); Strep pneumo Urine Ag NEGATIVE (NEGATIVE)
[2024-10-10] MEDS: Atorvastatin Calcium 40 MG TAB PO SCH (20:41)
[2024-10-10] MEDS: busPIRone HCl 5 MG TAB PO SCH (20:42)
[2024-10-10] MEDS: Bupropion 150 MG SR.TAB PO SCH (20:42)
[2024-10-11] MEDS: LevoFLOXacin 750 mg/D5W 750 MG in Premix 1 BAG IVPB SCH (01:18)
[2024-10-11] MEDS: Acetaminophen 650 MG/20.3 ML UDCUP PO SCH (01:25)
[2024-10-11 06:27] LABS: Vancomycin, Random 16.1 ug/mL (See Comment)
[2024-10-11 06:30] LABS: #Basophils Less than 0.03 10x3/uL (0.0-0.2); #Eosinophils Less than 0.03 10x3/uL (0.0-0.7); %Basophils 0.2 % (0.0-1.0); %Eosinophils 0.1 % (0.0-10.0); %Lymphocytes 11.1 % (21.0-51.0); %Monocytes 10.8 % (0.0-10.0); %Neutrophils 77.2 % (42.0-75.0); Hematocrit 31.7 % (36.0-47.0); Mean Corpuscular HGB CONC 34.7 g/dL (32.0-36.0); Mean Corpuscular Hemoglobin 31.1 pg (27.0-31.0); Mean Corpuscular Volume 89.5 fL (78.0-98.0); Mean Platelet Volume 12.3 fL (7.4-10.4); Platelet Count 141 10x3/uL (130-400); RBC Distribution Width 13.2 % (11.5-14.5); Red Blood Cell (RBC) Count 3.54 mill/uL (4.20-5.40)
[2024-10-11 06:39] LABS: Phosphorus 2.5 mg/dL (2.3-4.7)
[2024-10-11 06:40] LABS: Anion Gap 12 mmol/L (10-20); BUN (Urea Nitrogen) 18 mg/dL (9.8-20.1); Calc. Creatinine Clearance 89 mL/min (70-130); Carbon Dioxide 24 mmol/L (22-29); Chloride 98 mmol/L (98-107); Estimated GFR 52; Glucose 87 mg/dL (70-105); Magnesium 1.8 mg/dL (1.6-2.6); Potassium 2.7 mmol/L (3.5-5.1); Sodium 131 mmol/L (136-145)
[2024-10-11 08:21] LABS: Troponin I 0.735 ng/mL (< 0.028)
[2024-10-11] MEDS: Clopidogrel Bisulfate 75 MG TAB PO SCH (08:44)
[2024-10-11] MEDS: Aspirin 81 mg Enteric Coated Tablet PO SCH (08:44)
[2024-10-11] MEDS: FLUoxetine HCl 20 MG CAP PO SCH (08:45)
[2024-10-11] MEDS: Magnesium 2 GM/50 ML(in water) 2 GM in Premix 1 BAG IVPB SCH (10:47)
[2024-10-11 11:53] LABS: Troponin I 0.682 ng/mL (< 0.028)
[2024-10-11] MEDS: Enoxaparin 120 MG/0.8 ML SYRINGE SC SCH (12:09)
[2024-10-11] MEDS: Potassium Chloride 20 MEQ in Premix 1 BAG IVPB SCH (12:09)
[2024-10-11 12:24] VITALS: BMI 39.1
[2024-10-11] MEDS: Vancomycin (BATCH) 1.25 GM in Premix 1 BAG IVPB SCH (14:30)
[2024-10-11] MEDS: Acetaminophen 325 MG TAB PO PRN (20:31)
[2024-10-12 05:52] LABS: #Basophils Less than 0.03 10x3/uL (0.0-0.2); %Basophils 0.3 % (0.0-1.0); %Eosinophils 0.9 % (0.0-10.0); %Lymphocytes 17.8 % (21.0-51.0); %Monocytes 12.4 % (0.0-10.0); %Neutrophils 67.5 % (42.0-75.0); Hematocrit 32.3 % (36.0-47.0); Hemoglobin 11.1 g/dL (12.0-16.0); Mean Corpuscular HGB CONC 34.4 g/dL (32.0-36.0); Mean Corpuscular Volume 90.2 fL (78.0-98.0); Mean Platelet Volume 12.6 fL (7.4-10.4); Platelet Count 149 10x3/uL (130-400); Red Blood Cell (RBC) Count 3.58 mill/uL (4.20-5.40)
[2024-10-12 06:16] LABS: Anion Gap 9 mmol/L (10-20); BUN (Urea Nitrogen) 22 mg/dL (9.8-20.1); Calc. Creatinine Clearance 91 mL/min (70-130); Carbon Dioxide 26 mmol/L (22-29); Chloride 105 mmol/L (98-107); Estimated GFR 54; Glucose 129 mg/dL (70-105); Potassium 3.1 mmol/L (3.5-5.1); Sodium 137 mmol/L (136-145)
[2024-10-12] MEDS: Insulin Lispro 100 UNIT/ML 10 ML VIAL SC PRN (12:29)
[2024-10-13] MEDS ORDERED: traMADol HCl 50 MG TAB PO SCH (00:15)
[2024-10-13] MEDS: Ketorolac Tromethamine 30 MG (1 mL) VIAL IVP SCH (00:51)
[2024-10-13 05:31] LABS: Vancomycin, Random 14.7 ug/mL (See Comment)
[2024-10-13] MEDS: Enoxaparin 40 MG (0.4 mL) SYRINGE SC SCH (08:54)
[2024-10-13] MEDS: Pantoprazole DR 40 MG TAB PO SCH (08:55)
[2024-10-13] MEDS: HYDROcodone/Acetaminophen 5/325 mg Tablet PO PRN (12:07)
[2024-10-14] MEDS ORDERED: PROPOFOL 20 ML ONE (08:38)
[2024-10-14] MEDS ORDERED: PHENYLEPHRINE-NS 100 MCG/ML 10 ML SYRINGE ONE (08:40)
[2024-10-14] MEDS: Vancomycin (BATCH) 1.5 GM in Premix 1 BAG IVPB SCH (11:37)
[2024-10-14] MEDS: Polyethylene Glycol 3350 17 GM Packet PO PRN (21:53)
[2024-10-15 05:07] LABS: #Basophils 0.08 10x3/uL (0.0-0.2); %Basophils 0.6 % (0.0-1.0); %Eosinophils 2.8 % (0.0-10.0); %Lymphocytes 21.5 % (21.0-51.0); %Monocytes 6.2 % (0.0-10.0); %Neutrophils 66.8 % (42.0-75.0); Hematocrit 32.8 % (36.0-47.0); Hemoglobin 10.7 g/dL (12.0-16.0); Mean Corpuscular HGB CONC 32.6 g/dL (32.0-36.0); Mean Corpuscular Hemoglobin 30.8 pg (27.0-31.0); Mean Corpuscular Volume 94.5 fL (78.0-98.0); Platelet Count 231 10x3/uL (130-400); RBC Distribution Width 13.4 % (11.5-14.5); Red Blood Cell (RBC) Count 3.47 mill/uL (4.20-5.40)
[2024-10-15 05:19] LABS: Anion Gap 13 mmol/L (10-20); BUN (Urea Nitrogen) 18 mg/dL (9.8-20.1); Calc. Creatinine Clearance 127 mL/min (70-130); Calcium 8.4 mg/dL (7.8-10.44); Carbon Dioxide 23 mmol/L (22-29); Chloride 104 mmol/L (98-107); Estimated GFR 81; Glucose 107 mg/dL (70-105); Potassium 3.5 mmol/L (3.5-5.1); Sodium 136 mmol/L (136-145)
[2024-10-15] MEDS: Morphine 2 MG/ML VIAL SLOW IVP SCH (12:55)
[2024-10-15] MEDS: Lidocaine 4% Patch TD SCH (17:27)
[2024-10-16] MEDS: Transdermal Patch Removal TOP SCH (06:14)
[2024-10-16] MEDS ORDERED: Lidocaine 4% Patch TD SCH (09:00)
[2024-10-16 09:15] LABS: #Basophils 0.06 10x3/uL (0.0-0.2); %Basophils 0.5 % (0.0-1.0); %Eosinophils 2.4 % (0.0-10.0); %Lymphocytes 20.7 % (21.0-51.0); %Monocytes 6.8 % (0.0-10.0); Hematocrit 30.8 % (36.0-47.0); Hemoglobin 10.1 g/dL (12.0-16.0); Mean Corpuscular HGB CONC 32.8 g/dL (32.0-36.0); Mean Corpuscular Hemoglobin 30.9 pg (27.0-31.0); Mean Corpuscular Volume 94.2 fL (78.0-98.0); Mean Platelet Volume 10.6 fL (7.4-10.4); Platelet Count 288 10x3/uL (130-400); RBC Distribution Width 13.2 % (11.5-14.5); Red Blood Cell (RBC) Count 3.27 mill/uL (4.20-5.40)
[2024-10-16 09:37] LABS: Anion Gap 11 mmol/L (10-20); BUN (Urea Nitrogen) 15 mg/dL (9.8-20.1); Calc. Creatinine Clearance 124 mL/min (70-130); Calcium 8.3 mg/dL (7.8-10.44); Carbon Dioxide 27 mmol/L (22-29); Chloride 102 mmol/L (98-107); Estimated GFR 78; Glucose 125 mg/dL (70-105); Potassium 3.3 mmol/L (3.5-5.1); Sodium 137 mmol/L (136-145)
[2024-10-16] MEDS ORDERED: Phenol 177 ML BOT PO PRN (20:22)
[2024-10-16] MEDS: Phenol 177 ML BOT PO SCH (20:58)
[2024-10-16] MEDS ORDERED: Transdermal Patch Removal TOP SCH (21:00)
[2024-10-17] MEDS: DAPTOmycin 1,000 MG in Sodium Chloride 0.9% 50 ML IVPB SCH (09:15)
[2024-10-18] MEDS: CeleCOXIB 100 MG CAP PO SCH (09:56)
[2024-10-18] MEDS: Gabapentin 300 MG CAP PO SCH (20:28)
[2024-10-19 05:25] LABS: Vancomycin, Random 5.4 ug/mL (See Comment)
[2024-10-19] MEDS: HYDROcodone/Acetaminophen 5/325 mg Tablet PO PRN (15:01)
[2024-10-21 05:20] LABS: #Basophils 0.06 10x3/uL (0.0-0.2); %Basophils 0.4 % (0.0-1.0); %Eosinophils 2.2 % (0.0-10.0); %Lymphocytes 19.6 % (21.0-51.0); %Monocytes 6.1 % (0.0-10.0); %Neutrophils 70.3 % (42.0-75.0); Hematocrit 30.1 % (36.0-47.0); Hemoglobin 9.9 g/dL (12.0-16.0); Mean Corpuscular HGB CONC 32.9 g/dL (32.0-36.0); Mean Corpuscular Hemoglobin 30.7 pg (27.0-31.0); Mean Corpuscular Volume 93.5 fL (78.0-98.0); Mean Platelet Volume 9.9 fL (7.4-10.4); Platelet Count 420 10x3/uL (130-400); Red Blood Cell (RBC) Count 3.22 mill/uL (4.20-5.40)
[2024-10-21 05:42] LABS: Anion Gap 14 mmol/L (10-20); BUN (Urea Nitrogen) 20 mg/dL (9.8-20.1); Calc. Creatinine Clearance 135 mL/min (70-130); Calcium 8.7 mg/dL (7.8-10.44); Carbon Dioxide 26 mmol/L (22-29); Chloride 103 mmol/L (98-107); Estimated GFR 87; Glucose 127 mg/dL (70-105); Potassium 3.7 mmol/L (3.5-5.1); Sodium 139 mmol/L (136-145)
[2024-10-21] MEDS: Docusate 100 MG CAP PO PRN (09:48)
[2024-10-24 17:09] VITALS: BP 146/86; TEMP 98.3
== END 2024-10-24 17:02 | DRG 640 ==
LOC: ERS 21:29 → ERHOLD 10-10 00:48 → OBSVTOIN 10-10 10:43 → MSONC 10-10 11:55
PROVIDERS: ADMIT Internal Medicine; ATTEND Hospitalist
DX: E87.6 Hypokalemia (principal); I21.4 Non-ST elevation (NSTEMI) myocardial infarction; J18.9 Pneumonia, unspecified organism; I21.A1 Myocardial infarction type 2; N17.9 Acute kidney failure, unspecified; B95.62 Methicillin resistant Staphylococcus aureus infection as the cause of diseases classified elsewhere; E83.42 Hypomagnesemia; E11.9 Type 2 diabetes mellitus without complications; I10 Essential (primary) hypertension; F32.9 Major depressive disorder, single episode, unspecified; E78.5 Hyperlipidemia, unspecified; E66.01 Morbid (severe) obesity due to excess calories; R16.0 Hepatomegaly, not elsewhere classified; E87.1 Hypo-osmolality and hyponatremia; M25.512 Pain in left shoulder; Z88.0 Allergy status to penicillin; Z88.8 Allergy status to other drugs, medicaments and biological substances; Z86.73 Personal history of transient ischemic attack (TIA), and cerebral infarction without residual deficits; Z79.899 Other long term (current) drug therapy; Z79.82 Long term (current) use of aspirin; Z79.02 Long term (current) use of antithrombotics/antiplatelets; Z68.39 Body mass index [BMI] 39.0-39.9, adult; Z87.898 Personal history of other specified conditions
CPT/HCPCS: 36415; 36416; 70450; 71045; 74177; 80048; 80053; 80202; 80306; 80307; 81001; 82565; 83605; 83690; 83735; 84100; 84443; 84484; 85025; 87040; 87077; 87081; 87149; 87186; 87428; 87449; 87899; 93005; 93010; 93306; 93312; 96365; 96367; 96375; G0378; J0878; J1650; J1815; J1885; J1956; J2272; J2405; J2470; J2704; J3010; J3370; J3475; J3480; J7030; J7120; Q0162; Q9967

== ENCOUNTER → 2024-11-05 | Day surgery (SDC) | payer OTHER | LOC: SJX 11:55 | PROVIDERS: ATTEND Physical Medicine & Rehabilitation | DX: M25.512 Pain in left shoulder (principal); Z88.0 Allergy status to penicillin; Z88.2 Allergy status to sulfonamides ==

== ENCOUNTER 2024-11-18 18:43 | Inpatient (IN) | payer OTHER, SELFPAY ==
[2024-11-18 19:42] LABS: #Basophils 0.12 10x3/uL (0.0-0.2); %Basophils 0.6 % (0.0-1.0); %Eosinophils 1.4 % (0.0-10.0); %Lymphocytes 15.1 % (21.0-51.0); %Monocytes 5.5 % (0.0-10.0); %Neutrophils 74.5 % (42.0-75.0); Hemoglobin 11.4 g/dL (12.0-16.0); Mean Corpuscular HGB CONC 31.7 g/dL (32.0-36.0); Mean Corpuscular Hemoglobin 29.5 pg (27.0-31.0); Mean Corpuscular Volume 93.3 fL (78.0-98.0); Mean Platelet Volume 10.5 fL (7.4-10.4); Platelet Count 618 10x3/uL (130-400); RBC Distribution Width 15.2 % (11.5-14.5); Red Blood Cell (RBC) Count 3.86 mill/uL (4.20-5.40)
[2024-11-18 19:59] LABS: ALT (SGPT) 11 U/L (8-55); AST (SGOT) 19 U/L (5-34); Albumin 2.9 g/dL (3.5-5.0); Alkaline Phosphatase 140 U/L (40-110); Anion Gap 18 mmol/L (10-20); BUN (Urea Nitrogen) 48 mg/dL (9.8-20.1); Bilirubin, Total 0.7 mg/dL (0.2-1.2); Calc. Creatinine Clearance 0 mL/min (70-130); Calcium 9.7 mg/dL (7.8-10.44); Carbon Dioxide 21 mmol/L (22-29); Chloride 99 mmol/L (98-107); Estimated GFR 24; Globulin 5.2 g/dL (2.4-3.5); Glucose 138 mg/dL (70-105); Potassium 3.7 mmol/L (3.5-5.1); Protein, Total 8.1 g/dL (6.0-8.3); Sodium 134 mmol/L (136-145)
[2024-11-18] MEDS ORDERED: Polyethylene Glycol 3350 17 GM Packet PO PRN (21:56)
[2024-11-18] MEDS ORDERED: traZODone HCl 50 MG TAB PO PRN (21:56)
[2024-11-18] MEDS ORDERED: Dextrose 5% in Water 1,000 ML IV PRN (22:02)
[2024-11-18] MEDS ORDERED: Glucagon 1 MG/ML KIT IM PRN (22:02)
[2024-11-18] MEDS ORDERED: Dextrose 50% Abboject 50 ML SYRINGE SLOW IVP PRN (22:02)
[2024-11-18] MEDS ORDERED: Acetaminophen 325 MG TAB PO PRN (22:02)
[2024-11-18 22:11] LABS: Bacteria/HPF None Seen HPF (None Seen); Bilirubin Negative (Negative); Blood, Urine Negative (Negative); CAUTI Indications for Culture < 2yrs of age; Clarity Clear (Clear); Glucose, Urine (Dipstick) Normal (Negative); Ketone, Urine Negative (Negative); Leukocyte Negative Leu/uL (Negative); Nitrite Negative (Negative); Protein, Urine (Dipstick) Negative (Neg-Trace); RBC/HPF 0-3 HPF (0-3); Specific Gravity, Urine 1.015 (1.002-1.036); Squamous Epithelial 0-3 HPF (0-3); Urobilinogen Normal mg/dL (Less than 2); WBC/HPF 0-3 HPF (0-3)
[2024-11-18 22:13] LABS: Urine Culture Reflex Yes Yes
[2024-11-18] MEDS ORDERED: Morphine 4 MG/ML VIAL ONE (22:27)
[2024-11-19 01:24] VITALS: BMI 41.3
[2024-11-19] MEDS: Sodium Chloride 0.9% 1,000 ML IV SCH (01:29)
[2024-11-19] MEDS: traMADol HCl 50 MG TAB PO PRN (01:45)
[2024-11-19 04:41] LABS: #Basophils 0.11 10x3/uL (0.0-0.2); %Basophils 0.7 % (0.0-1.0); %Eosinophils 1.9 % (0.0-10.0); %Lymphocytes 24.4 % (21.0-51.0); %Monocytes 6.9 % (0.0-10.0); Hematocrit 34.6 % (36.0-47.0); Hemoglobin 11.1 g/dL (12.0-16.0); Mean Corpuscular HGB CONC 32.1 g/dL (32.0-36.0); Mean Corpuscular Hemoglobin 30.2 pg (27.0-31.0); Mean Platelet Volume 10.9 fL (7.4-10.4); Platelet Count 471 10x3/uL (130-400); RBC Distribution Width 14.9 % (11.5-14.5); Red Blood Cell (RBC) Count 3.68 mill/uL (4.20-5.40)
[2024-11-19 05:33] LABS: Anion Gap 13 mmol/L (10-20); BUN (Urea Nitrogen) 46 mg/dL (9.8-20.1); Calc. Creatinine Clearance 54 mL/min (70-130); Carbon Dioxide 25 mmol/L (22-29); Chloride 100 mmol/L (98-107); Estimated GFR 30; Glucose 106 mg/dL (70-105); Potassium 3.4 mmol/L (3.5-5.1); Sodium 135 mmol/L (136-145)
[2024-11-19] MEDS: FLUoxetine HCl 20 MG CAP PO SCH (09:13)
[2024-11-19] MEDS: Amlodipine 10 MG TAB PO SCH (09:13)
[2024-11-19] MEDS: Metoprolol Tartrate 100 MG TAB PO SCH (09:13)
[2024-11-19] MEDS: Bupropion 150 MG SR.TAB PO SCH (09:13)
[2024-11-19] MEDS: Clopidogrel Bisulfate 75 MG TAB PO SCH (09:13)
[2024-11-19] MEDS: busPIRone HCl 10 MG TAB PO SCH (09:13)
[2024-11-19] MEDS: Docusate 100 MG CAP PO PRN (09:16)
[2024-11-19] MEDS: Aspirin 81 mg Enteric Coated Tablet PO SCH ×2 (09:17→20:42)
[2024-11-19] MEDS: Gabapentin 300 MG CAP PO SCH (09:54)
[2024-11-19] MEDS ORDERED: VANCOMYCIN IVPB PRN (12:42)
[2024-11-19] MEDS: Vancomycin (BATCH) 2.5 GM in Premix 1 BAG IVPB SCH (13:42)
[2024-11-19] MEDS: Ipratropium/Albuterol 3 ML NEB NEB PRN (14:35)
[2024-11-19] MEDS: HYDROcodone/Acetaminophen 5/325 mg Tablet PO PRN (15:55)
[2024-11-19] MEDS: Lidocaine 4% Patch TD SCH (18:11)
[2024-11-19] MEDS: Atorvastatin Calcium 40 MG TAB PO SCH (20:42)
[2024-11-19] MEDS: Famotidine 20 MG TAB PO SCH (20:42)
[2024-11-19] MEDS: CeleCOXIB 100 MG CAP PO SCH (20:42)
[2024-11-19] MEDS: Heparin 5,000 UNITS/ML VIAL SC SCH (20:43)
[2024-11-19] MEDS ORDERED: Gabapentin 100 MG CAP PO SCH (21:00)
[2024-11-20] MEDS: Transdermal Patch Removal TOP SCH (05:51)
[2024-11-20 08:42] LABS: #Basophils 0.11 10x3/uL (0.0-0.2); %Basophils 0.9 % (0.0-1.0); %Eosinophils 2.7 % (0.0-10.0); %Lymphocytes 16.2 % (21.0-51.0); %Monocytes 8.2 % (0.0-10.0); %Neutrophils 70.7 % (42.0-75.0); Hematocrit 31.6 % (36.0-47.0); Mean Corpuscular HGB CONC 31.6 g/dL (32.0-36.0); Mean Corpuscular Hemoglobin 29.9 pg (27.0-31.0); Mean Corpuscular Volume 94.3 fL (78.0-98.0); Mean Platelet Volume 10.4 fL (7.4-10.4); Platelet Count 405 10x3/uL (130-400); RBC Distribution Width 14.8 % (11.5-14.5); Red Blood Cell (RBC) Count 3.35 mill/uL (4.20-5.40)
[2024-11-20 08:59] LABS: Anion Gap 14 mmol/L (10-20); BUN (Urea Nitrogen) 30 mg/dL (9.8-20.1); Calc. Creatinine Clearance 86 mL/min (70-130); Calcium 8.6 mg/dL (7.8-10.44); Carbon Dioxide 24 mmol/L (22-29); Chloride 105 mmol/L (98-107); Estimated GFR 52; Glucose 131 mg/dL (70-105); Potassium 3.6 mmol/L (3.5-5.1); Sodium 139 mmol/L (136-145)
[2024-11-20] MEDS ORDERED: Iopamidol-370 76% 500 ML MDV (1 ML CHARGE) ONE (09:41)
[2024-11-20] MEDS: Sodium Chloride 0.9% 1,000 ML IV SCH (12:47)
[2024-11-20] MEDS ORDERED: Vancomycin 1 GM in Premix 1 BAG IVPB SCH (14:00)
[2024-11-20] MEDS: Vancomycin (BATCH) 1.25 GM in Premix 1 BAG IVPB SCH (14:31)
[2024-11-20] MEDS: Ondansetron PF 4 MG/2 ML Vial IVP PRN (22:41)
[2024-11-21 06:11] LABS: #Basophils 0.08 10x3/uL (0.0-0.2); %Basophils 0.7 % (0.0-1.0); %Eosinophils 3.4 % (0.0-10.0); %Lymphocytes 24.5 % (21.0-51.0); %Monocytes 7.4 % (0.0-10.0); Hematocrit 32.1 % (36.0-47.0); Hemoglobin 10.4 g/dL (12.0-16.0); Mean Corpuscular HGB CONC 32.4 g/dL (32.0-36.0); Mean Corpuscular Hemoglobin 30.6 pg (27.0-31.0); Mean Corpuscular Volume 94.4 fL (78.0-98.0); Mean Platelet Volume 10.7 fL (7.4-10.4); Platelet Count 420 10x3/uL (130-400); RBC Distribution Width 14.7 % (11.5-14.5)
[2024-11-21 06:28] LABS: Anion Gap 12 mmol/L (10-20); BUN (Urea Nitrogen) 20 mg/dL (9.8-20.1); Calc. Creatinine Clearance 99 mL/min (70-130); Calcium 8.6 mg/dL (7.8-10.44); Carbon Dioxide 25 mmol/L (22-29); Chloride 106 mmol/L (98-107); Estimated GFR 62; Glucose 97 mg/dL (70-105); Potassium 3.5 mmol/L (3.5-5.1); Sodium 139 mmol/L (136-145)
[2024-11-21] MEDS: ALPRAZolam 0.5 MG TAB PO PRN (14:18)
[2024-11-22 05:56] LABS: #Basophils 0.08 10x3/uL (0.0-0.2); %Basophils 0.7 % (0.0-1.0); %Eosinophils 4.2 % (0.0-10.0); %Lymphocytes 20.7 % (21.0-51.0); %Monocytes 7.1 % (0.0-10.0); %Neutrophils 66.5 % (42.0-75.0); Hematocrit 33.8 % (36.0-47.0); Mean Corpuscular HGB CONC 32.5 g/dL (32.0-36.0); Mean Corpuscular Hemoglobin 30.6 pg (27.0-31.0); Mean Corpuscular Volume 94.2 fL (78.0-98.0); Mean Platelet Volume 10.8 fL (7.4-10.4); Platelet Count 461 10x3/uL (130-400); RBC Distribution Width 14.7 % (11.5-14.5); Red Blood Cell (RBC) Count 3.59 mill/uL (4.20-5.40)
[2024-11-22 06:05] LABS: Anion Gap 14 mmol/L (10-20); BUN (Urea Nitrogen) 19 mg/dL (9.8-20.1); Calc. Creatinine Clearance 85 mL/min (70-130); Calcium 8.7 mg/dL (7.8-10.44); Carbon Dioxide 28 mmol/L (22-29); Chloride 103 mmol/L (98-107); Estimated GFR 52; Glucose 114 mg/dL (70-105); Potassium 4.2 mmol/L (3.5-5.1); Sodium 141 mmol/L (136-145)
[2024-11-22 06:06] LABS: Vancomycin, Random 12.1 ug/mL (See Comment)
[2024-11-22] MEDS ORDERED: Bupivacaine PF 0.5% 30 ML VIAL ONE (08:08)
[2024-11-22] MEDS ORDERED: EPINEPHrine 1 MG/ML VIAL ONE (08:08)
[2024-11-22] MEDS ORDERED: Bupivacaine 0.25% HCL 30 ML VIAL ONE (08:08)
[2024-11-22] MEDS ORDERED: Dexamethasone 4 mg/ml Vial ONE (08:13)
[2024-11-22] MEDS ORDERED: PROPOFOL 20 ML ONE (08:13)
[2024-11-22] MEDS ORDERED: fentaNYL PF 100 MCG/2 ML SYRINGE ONE (08:13)
[2024-11-22] MEDS ORDERED: Lidocaine 1% PF 5 ML VIAL ONE (08:13)
[2024-11-22] MEDS ORDERED: Rocuronium Bromide 10 MG/ML (10ML VIAL) ONE (08:13)
[2024-11-22] MEDS ORDERED: Ondansetron PF 4 MG/2 ML Vial ONE (08:13)
[2024-11-22] MEDS ORDERED: PHENYLEPHRINE-NS 100 MCG/ML 10 ML SYRINGE ONE ×2 (08:13→09:55)
[2024-11-22] MEDS ORDERED: Midazolam HCl 2 mg/2 ml Vial ONE (09:05)
[2024-11-22] MEDS ORDERED: ePHEDrine Sulfate 50 MG/10 ML VIAL ONE (09:19)
[2024-11-22] MEDS ORDERED: Vasopressin 20 UNITS/ML VIAL ONE (09:39)
[2024-11-22] MEDS ORDERED: Norepinephrine 4 MG/4 ML VIAL ONE (10:00)
[2024-11-22] MEDS ORDERED: SUGAMMADEX SODIUM 200 MG/2 ML VIAL ONE (10:20)
[2024-11-22] MEDS ORDERED: fentaNYL 50 mcg/mL 1 mL Vial ONE (11:20)
[2024-11-22] MEDS: Communication Order-Pharmacy FS ONE (13:57)
[2024-11-22] MEDS: HYDROcodone/Acetaminophen 5/325 mg Tablet PO PRN (17:38)
[2024-11-22] MEDS: Vancomycin 1.5 GRAM/300 ML BAG 1.5 GM in Premix 1 BAG IVPB SCH (18:05)
[2024-11-22] MEDS: Metoprolol Tartrate 100 MG TAB PO SCH (21:31)
[2024-11-22] MEDS: busPIRone HCl 10 MG TAB PO SCH (21:31)
[2024-11-22] MEDS ORDERED: NOREPINEPHRINE 8 MG/250 ML-D5W 250 ML IVPB PRN (22:55)
[2024-11-23] MEDS: Ketorolac Tromethamine 30 MG (1 mL) VIAL IVP SCH ×2 (00:14→05:34)
[2024-11-23] MEDS: Gabapentin 300 MG CAP PO SCH ×2 (00:15→08:30)
[2024-11-23] MEDS: Acetaminophen 325 MG TAB PO SCH (00:15)
[2024-11-23] MEDS: Sodium Chloride 0.9% 1,000 ML IV SCH (00:15)
[2024-11-23 06:58] LABS: #Basophils 0.09 10x3/uL (0.0-0.2); %Basophils 0.6 % (0.0-1.0); %Eosinophils 0.3 % (0.0-10.0); %Lymphocytes 19.9 % (21.0-51.0); %Monocytes 7.2 % (0.0-10.0); Hematocrit 28.5 % (36.0-47.0); Mean Corpuscular HGB CONC 31.6 g/dL (32.0-36.0); Mean Platelet Volume 10.9 fL (7.4-10.4); Platelet Count 476 10x3/uL (130-400); RBC Distribution Width 14.7 % (11.5-14.5)
[2024-11-23 07:17] LABS: Vancomycin, Random 22.4 ug/mL (See Comment)
[2024-11-23 07:19] LABS: Anion Gap 13 mmol/L (10-20); BUN (Urea Nitrogen) 26 mg/dL (9.8-20.1); Calc. Creatinine Clearance 98 mL/min (70-130); Calcium 8.6 mg/dL (7.8-10.44); Carbon Dioxide 28 mmol/L (22-29); Chloride 102 mmol/L (98-107); Estimated GFR 62; Glucose 148 mg/dL (70-105); Potassium 3.5 mmol/L (3.5-5.1); Sodium 139 mmol/L (136-145)
[2024-11-23] MEDS: Hydrochlorothiazide 25 MG TAB PO SCH (08:30)
[2024-11-23] MEDS: Aspirin 81 mg Enteric Coated Tablet PO SCH (08:30)
[2024-11-23] MEDS: FLUoxetine HCl 20 MG CAP PO SCH (08:31)
[2024-11-23] MEDS: Morphine 4 MG/ML VIAL SLOW IVP PRN (10:18)
[2024-11-23 14:25] VITALS: BMI 41.3
[2024-11-23] MEDS: Vancomycin 1.5 GRAM/300 ML BAG 1.5 GM in Premix 1 BAG IVPB SCH (17:57)
[2024-11-23] MEDS ORDERED: Bupivacaine PF 0.5% 30 ML VIAL ONE (21:52)
[2024-11-23] MEDS ORDERED: Bacitracin Zinc Ointment 30 gm TUBE ONE (21:52)
[2024-11-23] MEDS ORDERED: EPINEPHrine 1 MG/ML VIAL ONE (21:52)
[2024-11-24] MEDS ORDERED: fentaNYL 50 mcg/mL 1 mL Vial ONE (00:27)
[2024-11-24] MEDS ORDERED: Non-Formulary Medication 1 EACH PO PRN (01:07)
[2024-11-24] MEDS ORDERED: HYDROmorphone 2 MG/ML VIAL SLOW IVP PRN (01:15)
[2024-11-24] MEDS ORDERED: Ondansetron HCl/PF 4 MG/2 ML Vial IVP PRN (01:15)
[2024-11-24] MEDS ORDERED: Promethazine HCl 25 MG/ML VIAL IM PRN (01:15)
[2024-11-24 05:41] LABS: %Basophils 0.9 % (0.0-1.0); %Eosinophils 4.4 % (0.0-10.0); %Lymphocytes 32.4 % (21.0-51.0); %Monocytes 6.1 % (0.0-10.0); %Neutrophils 55.2 % (42.0-75.0); Hematocrit 28.2 % (36.0-47.0); Mean Corpuscular HGB CONC 31.9 g/dL (32.0-36.0); Mean Corpuscular Hemoglobin 30.5 pg (27.0-31.0); Mean Corpuscular Volume 95.6 fL (78.0-98.0); Mean Platelet Volume 10.1 fL (7.4-10.4); Platelet Count 374 10x3/uL (130-400); RBC Distribution Width 15.3 % (11.5-14.5); Red Blood Cell (RBC) Count 2.95 mill/uL (4.20-5.40)
[2024-11-24 05:58] LABS: Anion Gap 14 mmol/L (10-20); BUN (Urea Nitrogen) 35 mg/dL (9.8-20.1); Calc. Creatinine Clearance 71 mL/min (70-130); Calcium 8.3 mg/dL (7.8-10.44); Carbon Dioxide 26 mmol/L (22-29); Chloride 104 mmol/L (98-107); Estimated GFR 42; Glucose 85 mg/dL (70-105); Potassium 3.6 mmol/L (3.5-5.1); Sodium 140 mmol/L (136-145)
[2024-11-24] MEDS: HYDROcodone/Acetaminophen 5/325 mg Tablet PO PRN (08:35)
[2024-11-24] MEDS ORDERED: Lidocaine 1% PF 5 ML VIAL ONE (10:56)
[2024-11-24] MEDS ORDERED: Sodium Bicarbonate 2.5 MEQ/5 ML SDV ONE (10:56)
[2024-11-24] MEDS ORDERED: Vancomycin 1.5 GRAM/300 ML BAG 1.5 GM in Premix 1 BAG IVPB SCH (23:59)
[2024-11-25 06:32] LABS: CRP,High Sensitivity (Inhouse) 4.49 mg/dL (< or = 0.5)
[2024-11-25 06:33] LABS: Anion Gap 11 mmol/L (10-20); BUN (Urea Nitrogen) 35 mg/dL (9.8-20.1); CK (CPK) 16 U/L (29-168); Calc. Creatinine Clearance 78 mL/min (70-130); Calcium 8.6 mg/dL (7.8-10.44); Carbon Dioxide 27 mmol/L (22-29); Chloride 103 mmol/L (98-107); Estimated GFR 47; Glucose 118 mg/dL (70-105); Potassium 4.1 mmol/L (3.5-5.1); Sodium 137 mmol/L (136-145)
[2024-11-25 06:52] LABS: #Basophils 0.08 10x3/uL (0.0-0.2); %Basophils 0.6 % (0.0-1.0); %Eosinophils 5.5 % (0.0-10.0); %Lymphocytes 23.5 % (21.0-51.0); %Monocytes 6.6 % (0.0-10.0); %Neutrophils 62.8 % (42.0-75.0); Hematocrit 28.2 % (36.0-47.0); Mean Corpuscular HGB CONC 31.9 g/dL (32.0-36.0); Mean Corpuscular Hemoglobin 30.5 pg (27.0-31.0); Mean Corpuscular Volume 95.6 fL (78.0-98.0); Mean Platelet Volume 10.3 fL (7.4-10.4); Platelet Count 473 10x3/uL (130-400); Red Blood Cell (RBC) Count 2.95 mill/uL (4.20-5.40)
[2024-11-25] MEDS: Ondansetron PF 4 MG/2 ML Vial IVP PRN (12:11)
[2024-11-25 15:37] LABS: Fungus Stain Final report (.)
[2024-11-26 06:09] LABS: #Basophils 0.07 10x3/uL (0.0-0.2); %Basophils 0.6 % (0.0-1.0); %Eosinophils 5.9 % (0.0-10.0); %Lymphocytes 24.5 % (21.0-51.0); %Monocytes 5.2 % (0.0-10.0); %Neutrophils 62.9 % (42.0-75.0); Hematocrit 26.3 % (36.0-47.0); Hemoglobin 8.3 g/dL (12.0-16.0); Mean Corpuscular HGB CONC 31.6 g/dL (32.0-36.0); Mean Corpuscular Hemoglobin 30.4 pg (27.0-31.0); Mean Corpuscular Volume 96.3 fL (78.0-98.0); Mean Platelet Volume 10.1 fL (7.4-10.4); Platelet Count 389 10x3/uL (130-400); RBC Distribution Width 15.2 % (11.5-14.5); Red Blood Cell (RBC) Count 2.73 mill/uL (4.20-5.40)
[2024-11-26 06:20] LABS: Anion Gap 13 mmol/L (10-20); BUN (Urea Nitrogen) 40 mg/dL (9.8-20.1); Calc. Creatinine Clearance 71 mL/min (70-130); Calcium 8.3 mg/dL (7.8-10.44); Carbon Dioxide 27 mmol/L (22-29); Chloride 105 mmol/L (98-107); Estimated GFR 42; Glucose 114 mg/dL (70-105); Potassium 3.8 mmol/L (3.5-5.1); Sodium 141 mmol/L (136-145)
[2024-11-26] MEDS: Dextrose 5 %-0.45 % NaCl 1,000 ML IV SCH (10:42)
[2024-11-26] MEDS: HYDROcodone/Acetaminophen 5/325 mg Tablet PO PRN (11:57)
[2024-11-26] MEDS: Morphine 2 MG/ML VIAL SLOW IVP PRN (16:46)
[2024-11-26 22:09] LABS: Hematocrit 28.6 % (36.0-47.0); Hemoglobin 9.1 g/dL (12.0-16.0)
[2024-11-26] MEDS: Sodium Chloride 0.9% 1,000 ML IV SCH (22:57)
[2024-11-27 04:16] LABS: Bacteria/HPF 4+ HPF (None Seen); Bilirubin Negative (Negative); Blood, Urine 3+ (Negative); Clarity Extra Turbid (Clear); Glucose, Urine (Dipstick) Normal (Negative); Ketone, Urine Negative (Negative); Leukocyte 500 Leu/uL (Negative); Nitrite Negative (Negative); Protein, Urine (Dipstick) 200 mg/dL (Neg-Trace); RBC/HPF Greater than 50 HPF (0-3); Specific Gravity, Urine 1.019 (1.002-1.036); Squamous Epithelial None Seen HPF (0-3); Urobilinogen Normal mg/dL (Less than 2); WBC/HPF Greater than 50 HPF (0-3)
[2024-11-27 05:11] LABS: %Basophils 0.8 % (0.0-1.0); %Eosinophils 9.2 % (0.0-10.0); %Lymphocytes 23.8 % (21.0-51.0); %Monocytes 6.5 % (0.0-10.0); %Neutrophils 58.9 % (42.0-75.0); Hematocrit 28.9 % (36.0-47.0); Hemoglobin 8.9 g/dL (12.0-16.0); Mean Corpuscular HGB CONC 30.8 g/dL (32.0-36.0); Mean Corpuscular Hemoglobin 30.5 pg (27.0-31.0); Mean Platelet Volume 10.5 fL (7.4-10.4); Platelet Count 400 10x3/uL (130-400); RBC Distribution Width 15.5 % (11.5-14.5); Red Blood Cell (RBC) Count 2.92 mill/uL (4.20-5.40)
[2024-11-27] MEDS: LevoFLOXacin 750 mg/D5W 750 MG in Premix 1 BAG IVPB SCH (05:31)
[2024-11-27 05:40] LABS: Anion Gap 12 mmol/L (10-20); BUN (Urea Nitrogen) 39 mg/dL (9.8-20.1); Calc. Creatinine Clearance 81 mL/min (70-130); Calcium 8.2 mg/dL (7.8-10.44); Carbon Dioxide 24 mmol/L (22-29); Chloride 107 mmol/L (98-107); Estimated GFR 49; Glucose 117 mg/dL (70-105); Potassium 3.9 mmol/L (3.5-5.1); Sodium 139 mmol/L (136-145)
[2024-11-27] MEDS: Methocarbamol 500 MG TAB PO PRN (12:01)
[2024-11-27] MEDS: Ipratropium/Albuterol 3 ML NEB NEB PRN (19:19)
[2024-11-28 05:49] LABS: Anion Gap 10 mmol/L (10-20); BUN (Urea Nitrogen) 28 mg/dL (9.8-20.1); Calc. Creatinine Clearance 77 mL/min (70-130); Calcium 8.3 mg/dL (7.8-10.44); Carbon Dioxide 28 mmol/L (22-29); Chloride 107 mmol/L (98-107); Estimated GFR 46; Glucose 140 mg/dL (70-105); Sodium 141 mmol/L (136-145)
[2024-11-28] MEDS: Sodium Chloride 0.9% 1,000 ML IV SCH (10:39)
[2024-11-28] MEDS: ALPRAZolam 0.5 MG TAB PO PRN (21:29)
[2024-11-29 05:56] LABS: Anion Gap 11 mmol/L (10-20); BUN (Urea Nitrogen) 22 mg/dL (9.8-20.1); Calc. Creatinine Clearance 95 mL/min (70-130); Calcium 8.3 mg/dL (7.8-10.44); Carbon Dioxide 27 mmol/L (22-29); Chloride 108 mmol/L (98-107); Estimated GFR 60; Glucose 121 mg/dL (70-105); Potassium 3.9 mmol/L (3.5-5.1); Sodium 142 mmol/L (136-145)
[2024-11-30 05:45] LABS: #Basophils 0.05 10x3/uL (0.0-0.2); %Basophils 0.5 % (0.0-1.0); %Eosinophils 8.1 % (0.0-10.0); %Lymphocytes 30.6 % (21.0-51.0); %Monocytes 6.2 % (0.0-10.0); %Neutrophils 53.5 % (42.0-75.0); Hematocrit 28.5 % (36.0-47.0); Mean Corpuscular HGB CONC 31.6 g/dL (32.0-36.0); Mean Corpuscular Hemoglobin 30.4 pg (27.0-31.0); Mean Corpuscular Volume 96.3 fL (78.0-98.0); Mean Platelet Volume 10.7 fL (7.4-10.4); Platelet Count 340 10x3/uL (130-400); RBC Distribution Width 15.9 % (11.5-14.5); Red Blood Cell (RBC) Count 2.96 mill/uL (4.20-5.40)
[2024-11-30 06:01] LABS: Anion Gap 10 mmol/L (10-20); BUN (Urea Nitrogen) 19 mg/dL (9.8-20.1); CK (CPK) 220 U/L (29-168); Calc. Creatinine Clearance 113 mL/min (70-130); Calcium 8.5 mg/dL (7.8-10.44); Carbon Dioxide 28 mmol/L (22-29); Chloride 107 mmol/L (98-107); Estimated GFR 73; Glucose 111 mg/dL (70-105); Potassium 4.2 mmol/L (3.5-5.1); Sodium 141 mmol/L (136-145)
[2024-11-30] MEDS: Fluconazole 100 MG TAB PO SCH (14:36)
[2024-12-01 05:17] LABS: Anion Gap 11 mmol/L (10-20); BUN (Urea Nitrogen) 17 mg/dL (9.8-20.1); Calc. Creatinine Clearance 92 mL/min (70-130); Calcium 8.6 mg/dL (7.8-10.44); Carbon Dioxide 27 mmol/L (22-29); Chloride 107 mmol/L (98-107); Estimated GFR 57; Glucose 105 mg/dL (70-105); Sodium 141 mmol/L (136-145)
[2024-12-01] MEDS: Promethazine HCl 25 MG/ML VIAL IM PRN (09:31)
[2024-12-01 17:10] VITALS: BP 136/70; TEMP 98.9
== END 2024-12-01 20:10 | DRG 511 ==
LOC: ERS 18:43 → T4-A 22:51 → OBSVTOIN 11-20 09:58
PROVIDERS: ADMIT Student in an Organized Health Care Education/Training Program; ATTEND Internal Medicine
PROC: 0RBF0ZZ Excision of Left Sternoclavicular Joint, Open Approach (ICD-10-PCS; principal; 2024-11-20)
PROC: 0RBP0ZZ Excision of Left Wrist Joint, Open Approach (ICD-10-PCS; 2024-11-20)
PROC: 3E033XZ Introduction of Vasopressor into Peripheral Vein, Percutaneous Approach (ICD-10-PCS; 2024-11-20)
DX: M00.9 Pyogenic arthritis, unspecified (principal); I69.354 Hemiplegia and hemiparesis following cerebral infarction affecting left non-dominant side; N17.9 Acute kidney failure, unspecified; Z68.41 Body mass index [BMI] 40.0-44.9, adult; M86.9 Osteomyelitis, unspecified; N39.0 Urinary tract infection, site not specified; E78.5 Hyperlipidemia, unspecified; E11.22 Type 2 diabetes mellitus with diabetic chronic kidney disease; N18.2 Chronic kidney disease, stage 2 (mild); A49.02 Methicillin resistant Staphylococcus aureus infection, unspecified site; I12.9 Hypertensive chronic kidney disease with stage 1 through stage 4 chronic kidney disease, or unspecified chronic kidney disease; E66.01 Morbid (severe) obesity due to excess calories; S63.592A Other specified sprain of left wrist, initial encounter; B37.31 Acute candidiasis of vulva and vagina; Z79.02 Long term (current) use of antithrombotics/antiplatelets; Z98.890 Other specified postprocedural states; Z79.82 Long term (current) use of aspirin; Z79.899 Other long term (current) drug therapy; R79.82 Elevated C-reactive protein (CRP); Z98.871 Personal history of in utero procedure while a fetus; Z88.8 Allergy status to other drugs, medicaments and biological substances; Z88.1 Allergy status to other antibiotic agents; Z88.0 Allergy status to penicillin; E11.69 Type 2 diabetes mellitus with other specified complication; Z66 Do not resuscitate
CPT/HCPCS: 36415; 36416; 36572; 51701; 70491; 71045; 71260; 74177; 80048; 80053; 80202; 81001; 81003; 81015; 82550; 83605; 85025; 86141; 87040; 87070; 87077; 87086; 87102; 87149; 87186; 87205; 87206; 93005; 93306; 94640; 94760; 96361; 96372; 96374; 96375; 97139; C1751; G0378; J0171; J0665; J0878; J1100; J1644; J1885; J1956; J2250; J2270; J2272; J2405; J2550; J2704; J3010; J3370; J7030; J7042; J7620; Q9967

== ENCOUNTER 2025-06-22 14:47 | Outpatient (CLI) | payer OTHER | END 2025-06-22 14:48 | disposition home or self-care (01) | LOC: BICMAMMO 14:47 | PROVIDERS: ATTEND Family Medicine | DX: Z12.13 Encounter for screening for malignant neoplasm of small intestine (principal); Z80.3 Family history of malignant neoplasm of breast; N64.89 Other specified disorders of breast | CPT/HCPCS: 77063; 77067 ==

== ENCOUNTER 2025-07-12 11:02 | Emergency (ER) | payer OTHER | END 2025-07-12 13:20 | disposition home or self-care (01) | LOC: ERS 11:02 | DX: M79.602 Pain in left arm (principal); M25.552 Pain in left hip; E11.9 Type 2 diabetes mellitus without complications; I10 Essential (primary) hypertension; W01.0XXA Fall on same level from slipping, tripping and stumbling without subsequent striking against object, initial encounter; Y92.480 Sidewalk as the place of occurrence of the external cause; Z79.82 Long term (current) use of aspirin | CPT/HCPCS: 96374; J2270 ==

== ENCOUNTER 2025-07-19 11:38 | Inpatient (IN) | payer OTHER ==
[2025-07-19] MEDS ORDERED: Prochlorperazine 10 MG/2 ML VIAL ONE (12:35)
[2025-07-19] MEDS ORDERED: Acetaminophen 500 MG TAB ONE (12:35)
[2025-07-19] MEDS ORDERED: diphenhydrAMINE 50 MG/ML VIAL ONE (12:35)
[2025-07-19 13:38] LABS: CAUTI Indications for Culture Dysuria,urgency,freq; Glucose, Urine (Dipstick) Greater than 1000 mg/dL (Negative); Leukocyte 250 Leu/uL (Negative); Protein, Urine (Dipstick) Negative (Neg-Trace); RBC/HPF 0-3 HPF (0-3); Specific Gravity, Urine 1.020 (1.002-1.036)
[2025-07-19 13:43] LABS: Bacteria/HPF 1+ HPF (None Seen)
[2025-07-19 13:44] LABS: Urine Culture Reflex Yes Yes
[2025-07-19 13:50] LABS: #Basophils 0.09 10x3/uL (0.0-0.2); #Eosinophils 0.39 10x3/uL (0.0-0.7); #Monocytes 0.69 10x3/uL (0.11-0.59); #Neutrophils 4.51 10x3/uL (1.40-6.50); %Basophils 1.0 % (0.0-1.0); %Eosinophils 4.2 % (0.0-10.0); %Lymphocytes 38.5 % (21.0-51.0); %Monocytes 7.4 % (0.0-10.0); %Neutrophils 48.5 % (42.0-75.0); Hematocrit 44.1 % (36.0-47.0); Hemoglobin 14.3 g/dL (12.0-16.0); Mean Corpuscular Hemoglobin 29.5 pg (27.0-31.0); Mean Corpuscular Volume 91.1 fL (78.0-98.0); Platelet Count 211 10x3/uL (130-400); Red Blood Cell (RBC) Count 4.84 mill/uL (4.20-5.40); White Blood Cell (WBC) Count 9.30 10x3/uL (4.8-10.8)
[2025-07-19] MEDS ORDERED: Ketorolac Tromethamine 30 MG (1 mL) VIAL ONE (15:48)
[2025-07-19] MEDS ORDERED: niCARdipine 25 MG/10 ML SDV ONE (15:49)
[2025-07-19 16:18] LABS: ALT (SGPT) 17 U/L (Less than 34); AST (SGOT) 26 U/L (11-34); Albumin 3.2 g/dL (3.1-4.5); Alkaline Phosphatase 103 U/L (40-110); Anion Gap 16 mmol/L (10-20); BUN (Urea Nitrogen) 23 mg/dL (9.8-20.1); Bilirubin, Total 0.9 mg/dL (0.3-1.2); Calc. Creatinine Clearance 0 mL/min (70-130); Calcium 8.8 mg/dL (7.8-10.44); Carbon Dioxide 25 mmol/L (22-29); Chloride 104 mmol/L (98-107); Globulin 2.7 g/dL (2.4-3.5); Glucose 81 mg/dL (70-105); Potassium 3.7 mmol/L (3.5-5.1); Sodium 141 mmol/L (136-145)
[2025-07-19] MEDS ORDERED: LevoFLOXacin 750 mg/D5W 150 ml Premix Bag ONE (16:56)
[2025-07-19] MEDS ORDERED: Glucagon 1 MG/ML KIT IM PRN (17:57)
[2025-07-19] MEDS ORDERED: Dextrose 50% Abboject 50 ML SYRINGE SLOW IVP PRN (17:57)
[2025-07-19] MEDS ORDERED: niCARdipine 25 MG in Sodium Chloride 0.9% 250 ML 250 ML IVPB SCH (19:00)
[2025-07-19 19:16] VITALS: BMI 32.8
[2025-07-19] MEDS: Lisinopril 10 MG TAB PO SCH (19:47)
[2025-07-19] MEDS: Bupropion 150 MG SR.TAB PO SCH (21:28)
[2025-07-19] MEDS: niCARdipine 25 MG in Sodium Chloride 0.9% 250 ML 250 ML IVPB SCH (22:19)
[2025-07-20 05:03] LABS: #Basophils Less than 0.03 10x3/uL (0.0-0.2); #Eosinophils Less than 0.03 10x3/uL (0.0-0.7); #Monocytes 0.10 10x3/uL (0.11-0.59); #Neutrophils 4.81 10x3/uL (1.40-6.50); %Basophils 0.2 % (0.0-1.0); %Eosinophils 0.2 % (0.0-10.0); %Lymphocytes 15.9 % (21.0-51.0); %Monocytes 1.7 % (0.0-10.0); %Neutrophils 81.5 % (42.0-75.0); Hematocrit 46.2 % (36.0-47.0); Hemoglobin 15.1 g/dL (12.0-16.0); Mean Corpuscular Hemoglobin 29.5 pg (27.0-31.0); Mean Corpuscular Volume 90.2 fL (78.0-98.0); Platelet Count 209 10x3/uL (130-400); Red Blood Cell (RBC) Count 5.12 mill/uL (4.20-5.40); White Blood Cell (WBC) Count 5.90 10x3/uL (4.8-10.8)
[2025-07-20 05:25] LABS: Anion Gap 9 mmol/L (10-20); BUN (Urea Nitrogen) 20 mg/dL (9.8-20.1); Calc. Creatinine Clearance 89 mL/min (70-130); Calcium 9.4 mg/dL (7.8-10.44); Carbon Dioxide 26 mmol/L (22-29); Chloride 106 mmol/L (98-107); Glucose 147 mg/dL (70-105); Potassium 4.1 mmol/L (3.5-5.1); Sodium 137 mmol/L (136-145)
[2025-07-20] MEDS: hydrALAZINE 20 MG/ML VIAL SLOW IVP PRN (07:22)
[2025-07-20] MEDS: Enoxaparin 40 MG (0.4 mL) SYRINGE SC SCH (08:14)
[2025-07-20] MEDS: Aspirin 81 mg Enteric Coated Tablet PO SCH (08:14)
[2025-07-20] MEDS: Famotidine 20 MG TAB PO SCH (08:15)
[2025-07-20] MEDS: PNEUMOC 20-VAL CONJ-DIP CRM/PF 0.5 ML SYRINGE IM ONE (08:15)
[2025-07-20] MEDS: Lisinopril 10 MG TAB PO SCH (11:04)
[2025-07-20] MEDS: LevoFLOXacin 250 mg/D5W 250 MG in Premix 1 BAG IVPB SCH (13:45)
[2025-07-20 14:45] VITALS: BMI 32.8
[2025-07-20] MEDS: Carvedilol 6.25 MG TAB PO SCH (16:33)
[2025-07-20] MEDS: Lisinopril 20 MG TAB PO SCH (20:45)
[2025-07-21] MEDS: Acetaminophen 325 MG TAB PO PRN (04:08)
[2025-07-21 10:39] LABS: #Basophils 0.07 10x3/uL (0.0-0.2); #Eosinophils 0.16 10x3/uL (0.0-0.7); #Monocytes 0.75 10x3/uL (0.11-0.59); #Neutrophils 5.78 10x3/uL (1.40-6.50); %Basophils 0.7 % (0.0-1.0); %Eosinophils 1.6 % (0.0-10.0); %Lymphocytes 33.1 % (21.0-51.0); %Monocytes 7.4 % (0.0-10.0); %Neutrophils 56.8 % (42.0-75.0); Hematocrit 42.7 % (36.0-47.0); Hemoglobin 13.6 g/dL (12.0-16.0); Mean Corpuscular Hemoglobin 29.4 pg (27.0-31.0); Mean Corpuscular Volume 92.2 fL (78.0-98.0); Platelet Count 219 10x3/uL (130-400); Red Blood Cell (RBC) Count 4.63 mill/uL (4.20-5.40); White Blood Cell (WBC) Count 10.16 10x3/uL (4.8-10.8)
[2025-07-21] MEDS: Nystatin Powder 15 GM BOT TOP PRN (11:47)
[2025-07-21] MEDS ORDERED: HYDROcodone/Acetaminophen 5/325 mg Tablet PO PRN (14:35)
[2025-07-21] MEDS: NIFEdipine XL 60 MG ER.TAB PO SCH (15:18)
[2025-07-21] MEDS: Fioricet 325/50/40 mg Tablet PO PRN (15:19)
[2025-07-21 17:57] LABS: Anion Gap 15 mmol/L (10-20); BUN (Urea Nitrogen) 26 mg/dL (9.8-20.1); Calc. Creatinine Clearance 72 mL/min (70-130); Calcium 9.0 mg/dL (7.8-10.44); Carbon Dioxide 24 mmol/L (22-29); Chloride 104 mmol/L (98-107); Glucose 97 mg/dL (70-105); Potassium 4.0 mmol/L (3.5-5.1); Sodium 139 mmol/L (136-145)
[2025-07-21] MEDS: Pantoprazole 40 MG DR.TAB PO SCH (21:27)
[2025-07-22 04:57] LABS: #Basophils 0.09 10x3/uL (0.0-0.2); #Eosinophils 0.39 10x3/uL (0.0-0.7); #Monocytes 0.77 10x3/uL (0.11-0.59); #Neutrophils 4.22 10x3/uL (1.40-6.50); %Basophils 0.9 % (0.0-1.0); %Eosinophils 4.0 % (0.0-10.0); %Lymphocytes 42.9 % (21.0-51.0); %Monocytes 7.9 % (0.0-10.0); %Neutrophils 43.6 % (42.0-75.0); Hematocrit 45.9 % (36.0-47.0); Hemoglobin 14.5 g/dL (12.0-16.0); Mean Corpuscular Hemoglobin 29.5 pg (27.0-31.0); Mean Corpuscular Volume 93.3 fL (78.0-98.0); Platelet Count 219 10x3/uL (130-400); Red Blood Cell (RBC) Count 4.92 mill/uL (4.20-5.40); White Blood Cell (WBC) Count 9.70 10x3/uL (4.8-10.8)
[2025-07-22 05:11] LABS: Anion Gap 11 mmol/L (10-20); BUN (Urea Nitrogen) 32 mg/dL (9.8-20.1); Calc. Creatinine Clearance 68 mL/min (70-130); Calcium 9.0 mg/dL (7.8-10.44); Carbon Dioxide 28 mmol/L (22-29); Chloride 105 mmol/L (98-107); Glucose 111 mg/dL (70-105); Potassium 4.0 mmol/L (3.5-5.1); Sodium 140 mmol/L (136-145)
[2025-07-22] MEDS: NIFEdipine XL 60 MG ER.TAB PO SCH (09:06)
[2025-07-23 05:13] LABS: #Basophils 0.09 10x3/uL (0.0-0.2); #Eosinophils 0.40 10x3/uL (0.0-0.7); #Monocytes 0.68 10x3/uL (0.11-0.59); #Neutrophils 5.62 10x3/uL (1.40-6.50); %Basophils 0.9 % (0.0-1.0); %Eosinophils 3.9 % (0.0-10.0); %Lymphocytes 32.5 % (21.0-51.0); %Monocytes 6.7 % (0.0-10.0); %Neutrophils 55.2 % (42.0-75.0); Hematocrit 45.4 % (36.0-47.0); Hemoglobin 14.4 g/dL (12.0-16.0); Mean Corpuscular Hemoglobin 29.4 pg (27.0-31.0); Mean Corpuscular Volume 92.8 fL (78.0-98.0); Platelet Count 239 10x3/uL (130-400); Red Blood Cell (RBC) Count 4.89 mill/uL (4.20-5.40); White Blood Cell (WBC) Count 10.18 10x3/uL (4.8-10.8)
[2025-07-23 05:28] LABS: Anion Gap 13 mmol/L (10-20); BUN (Urea Nitrogen) 25 mg/dL (9.8-20.1); Calc. Creatinine Clearance 82 mL/min (70-130); Calcium 9.0 mg/dL (7.8-10.44); Carbon Dioxide 23 mmol/L (22-29); Chloride 106 mmol/L (98-107); Glucose 128 mg/dL (70-105); Potassium 4.4 mmol/L (3.5-5.1); Sodium 138 mmol/L (136-145)
[2025-07-23] MEDS: Ondansetron PF 4 MG/2 ML Vial IVP PRN (12:38)
[2025-07-24 05:18] LABS: #Basophils 0.07 10x3/uL (0.0-0.2); #Eosinophils 0.41 10x3/uL (0.0-0.7); #Monocytes 0.81 10x3/uL (0.11-0.59); #Neutrophils 5.44 10x3/uL (1.40-6.50); %Basophils 0.7 % (0.0-1.0); %Eosinophils 4.1 % (0.0-10.0); %Lymphocytes 31.7 % (21.0-51.0); %Monocytes 8.1 % (0.0-10.0); %Neutrophils 54.7 % (42.0-75.0); Hematocrit 43.1 % (36.0-47.0); Hemoglobin 13.6 g/dL (12.0-16.0); Mean Corpuscular Hemoglobin 29.4 pg (27.0-31.0); Mean Corpuscular Volume 93.1 fL (78.0-98.0); Platelet Count 204 10x3/uL (130-400); Red Blood Cell (RBC) Count 4.63 mill/uL (4.20-5.40); White Blood Cell (WBC) Count 9.95 10x3/uL (4.8-10.8)
[2025-07-24 05:40] LABS: Anion Gap 12 mmol/L (10-20); BUN (Urea Nitrogen) 26 mg/dL (9.8-20.1); Calc. Creatinine Clearance 77 mL/min (70-130); Calcium 9.1 mg/dL (7.8-10.44); Carbon Dioxide 27 mmol/L (22-29); Chloride 104 mmol/L (98-107); Glucose 124 mg/dL (70-105); Potassium 4.2 mmol/L (3.5-5.1); Sodium 139 mmol/L (136-145)
[2025-07-24] MEDS: Fioricet 325/50/40 mg Tablet PO PRN (10:12)
[2025-07-24 16:44] VITALS: TEMP 97.5
[2025-07-24 17:52] VITALS: BP 125/75
== END 2025-07-24 18:05 | disposition home or self-care (01) | DRG 690 ==
LOC: ERS 11:38 → CCU 17:26 → MSONC 07-20 14:53
PROVIDERS: ADMIT Internal Medicine; ATTEND Hospitalist
PROC: 3E0234Z Introduction of Serum, Toxoid and Vaccine into Muscle, Percutaneous Approach (ICD-10-PCS; principal; 2025-07-19)
PROC: 3E03329 Introduction of Other Anti-infective into Peripheral Vein, Percutaneous Approach (ICD-10-PCS; 2025-07-19)
DX: N30.00 Acute cystitis without hematuria (principal); I69.354 Hemiplegia and hemiparesis following cerebral infarction affecting left non-dominant side; I50.32 Chronic diastolic (congestive) heart failure; F33.9 Major depressive disorder, recurrent, unspecified; I16.0 Hypertensive urgency; K21.9 Gastro-esophageal reflux disease without esophagitis; Z66 Do not resuscitate; G47.33 Obstructive sleep apnea (adult) (pediatric); E11.9 Type 2 diabetes mellitus without complications; E78.5 Hyperlipidemia, unspecified; Z88.1 Allergy status to other antibiotic agents; Z88.0 Allergy status to penicillin; Z88.2 Allergy status to sulfonamides; Z88.8 Allergy status to other drugs, medicaments and biological substances; Z98.890 Other specified postprocedural states; F41.9 Anxiety disorder, unspecified; Z90.49 Acquired absence of other specified parts of digestive tract; E66.01 Morbid (severe) obesity due to excess calories; I11.0 Hypertensive heart disease with heart failure; B96.20 Unspecified Escherichia coli [E. coli] as the cause of diseases classified elsewhere; R51.9 Headache, unspecified; Z79.899 Other long term (current) drug therapy; Z79.82 Long term (current) use of aspirin
CPT/HCPCS: 36415; 36416; 51701; 70450; 70551; 80048; 81001; 84484; 85025; 87077; 87086; 87186; 93005; 94760; 96365; 96366; 96367; 96375; J0360; J0780; J1200; J1650; J1815; J1885; J1956; J2185; J2405; J2919; J7050